=== PATIENT | female | born 1965 | race Caucasian/White ===

== ENCOUNTER → 2018-08-02 | Outpatient (CLI) | payer OTHER ==
[2016-05-08 20:42] VITALS: BP 133/83
[~2018-08-02] MED LIST: LORA-254 PO
--- NOTE | 2018-08-02 15:54 | RAD ---
Thyroid ultrasound, 08/02/2018: HISTORY: Abnormal TSH The right lobe of the gland measures 3.6 x 1.8 x 1.8 cm while the left lobe of the gland measures 4.1 x 1.2 x 1.4 cm. Both lobes of the gland are heterogeneous and demonstrate generalized increased vascularity. There is a smooth oval shaped very hypoechoic nodule in the posterior aspect of the lower pole the right lobe of the gland. It measures 9 x 7 x 4 mm. It is wider than tall. There is internal color flow. No calcification is seen. This nodule is considered to be moderately suspicious, TI-RADS 4. There is a questionable isoechoic nodule extending posteriorly from the lower pole the right lobe of the gland. This process measures approximately 9 mm in greatest diameter. No calcification is seen. This may represent an unusual extension of normal thyroid tissue. There is a rounded nodule in the lower pole of the left lobe of the gland. It demonstrates a smooth echogenic rim. It measures 14 x 10 x 11 mm. No definite color flow is seen internally. No definite calcification is seen. No other discrete thyroid nodule is seen. IMPRESSION: 1. Bilateral thyroid nodules with nonspecific sonographic characteristics as described above. Ultrasound surveillance is suggested. 2. Generalized increased thyroid vascularity raising possibility of thyroiditis. Electronically signed by: Cooper Dan MD (08/02/2018 3:51 PM) [facility]
== END | disposition home or self-care (01) ==
LOC: US 11:11
PROVIDERS: ATTEND Physician Assistant Medical
DX: E04.2 Nontoxic multinodular goiter (principal)
CPT/HCPCS: 76536

== ENCOUNTER → 2018-11-15 | Outpatient (CLI) | payer OTHER ==
[2016-05-08 20:42] VITALS: BP 133/83
[2018-11-16 02:08] LABS: THYROXINE 11.5 ug/dL (4.5-12.0)
== END | disposition home or self-care (01) ==
LOC: LAB 12:24
PROVIDERS: ATTEND Psychiatry & Neurology Neurology
DX: F03.90 Unspecified dementia, unspecified severity, without behavioral disturbance, psychotic disturbance, mood disturbance, and anxiety (principal)
CPT/HCPCS: 36415; 82306; 82607; 82746; 84436; 84443; 84480; 86592

== ENCOUNTER 2018-11-25 23:03 | Emergency (ER) | payer OTHER ==
[~2018-11-25] VITALS: Ht 165.1 cm; Wt 55.1 kg
[2018-11-25 23:10] VITALS: BP 155/94
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
[2018-11-25] MEDS ORDERED: LORazepam 1 MG TABLET PO ONE (23:45)
[2018-11-26 00:09] LABS: BASO # 0.1 x10^3/uL (0.0-0.2); BASO % 1 % (0-3); EOS # 0.1 x10^3/uL (0.0-0.7); EOS % 1 % (0-3); HEMATOCRIT 35.1 % (36.0-47.0); HEMOGLOBIN 11.5 g/dL (12.0-15.5); LYMPH # 1.3 x10^3/uL (1.0-4.8); LYMPH % 10 % (24-48); MEAN CORPUSCULAR HEMOGLOBIN 28 pg (25-35); MEAN CORPUSCULAR HGB CONC 33 g/dL (31-37); MEAN CORPUSCULAR VOLUME 84 fL (79-100); MONO % 8 % (0-9); NEUT # 10.3 x10^3uL (1.8-7.7); NEUT % 81 % (31-73); PLATELET COUNT 440 x10^3/uL (140-400); RED BLOOD COUNT 4.17 x10^6/uL (3.50-5.40); RED CELL DISTRIBUTION WIDTH 14.8 % (11.5-14.5); WHITE BLOOD COUNT 12.7 x10^3/uL (4.0-11.0)
[2018-11-26 00:19] LABS: BACTERIA,URINE FEW /HPF (0-FEW); BILIRUBIN,URINE NEG (NEG); CLARITY,URINE CLEAR; COLOR,URINE YELLOW; GLUCOSE,URINE NEG (NEG); NITRITE,URINE NEG (NEG); RBC,URINE 0 /HPF (0-2); SQUAMOUS EPITHELIAL CELL,UR MOD /LPF; UROBILINOGEN,URINE 8 mg/dL (0.2 mg/dL)
[2018-11-26 00:22] LABS: ALBUMIN/GLOBULIN RATIO 0.6 (1.0-1.7); CALCIUM 8.7 mg/dL (8.5-10.1); CREATININE 0.6 mg/dL (0.6-1.0); GFR 105.4; MAGNESIUM 1.6 mg/dL (1.8-2.4); TOTAL BILIRUBIN 0.6 mg/dL (0.2-1.0); TOTAL PROTEIN 7.7 g/dL (6.4-8.2)
[2018-11-26 00:22] LABS: BARBITURATES NEG (NEG); BENZODIAZEPINES NEG (NEG); CANNABINOIDS NEG (NEG); COCAINE NEG (NEG); METHADONE NEG (NEG); OPIATES NEG (NEG); PHENCYCLIDINE NEG (NEG)
[2018-11-26 00:24] LABS: POTASSIUM 2.8 mmol/L (3.5-5.1)
[2018-11-26 00:25] LABS: AMPHETAMINE/METHAMPHETAMINE NEG (NEG)
[2018-11-26] MEDS ORDERED: MAGNESIUM OXIDE 400 MG TABLET PO ONE (01:00)
[2018-11-26] MEDS ORDERED: POTASSIUM CHLORIDE 20 MEQ TABLET.ER. PO ONE (01:00)
[2018-11-26] MEDS ORDERED: POTA20TA84 PO (01:09)
[2018-11-26] MEDS ORDERED: MAGN400T3 PO (01:09)
--- NOTE | 2018-11-26 04:21 | RAD ---
EXAM: 3 views right hand DATE: 11/26/2018 1:22 AM INDICATION: Right hand and wrist pain, soft tissue swelling COMPARISON: No Prior FINDINGS/ IMPRESSION: 1. There is an intra-articular fracture at the ulnar aspect of the right distal radius extending to the radiocarpal joint and distal radioulnar joint. Neutral radial tilt. Mild flattening of the radial inclination angle. 2. Nondisplaced ulnar styloid avulsion fracture. 3. Decreased bone mineral density. 4. Diffuse soft tissue swelling. Electronically signed by: Lavon Martínez MD (11/26/2018 4:18 AM) [facility]
--- NOTE | 2018-11-26 04:21 | RAD ---
EXAM: AP and lateral views right forearm DATE: 11/26/2018 1:29 AM INDICATION: Fall, right wrist pain COMPARISON: No Prior FINDINGS/ IMPRESSION: Distal radial and ulnar fractures better described on dedicated wrist radiographs. No definite proximal forearm fracture. Electronically signed by: Lavon Martínez MD (11/26/2018 4:18 AM) [facility]
== END 2018-11-26 01:50 | disposition home or self-care (01) ==
LOC: ER 23:03
DX: S52.501A Unspecified fracture of the lower end of right radius, initial encounter for closed fracture (principal); S52.614A Nondisplaced fracture of right ulna styloid process, initial encounter for closed fracture; E87.6 Hypokalemia; E83.42 Hypomagnesemia; R41.82 Altered mental status, unspecified; F03.90 Unspecified dementia, unspecified severity, without behavioral disturbance, psychotic disturbance, mood disturbance, and anxiety; F17.210 Nicotine dependence, cigarettes, uncomplicated; W18.39XA Other fall on same level, initial encounter; Y93.89 Activity, other specified; Y92.89 Other specified places as the place of occurrence of the external cause; Y99.8 Other external cause status
CPT/HCPCS: 29125; 36415; 73090; 73130; 80053; 80307; 81001; 83735; 85025; 87086; 99285; G0480

== ENCOUNTER → 2018-12-01 | Outpatient (CLI) | payer OTHER ==
[2018-11-25 23:10] VITALS: BP 155/94
[~2018-12-01] MED LIST changes: +MAGN400T3 PO; +POTA20TA84 PO
--- NOTE | 2018-12-01 17:19 | RAD ---
TOES RIGHT History: Right third toe pain, necrosis.. There is irregularity at the base of the distal third phalanx. No notable joint space narrowing. There is mild adjacent bone irregularity. There is soft tissue swelling of the third toe. There is a defect at the distal third toe, may represent an ulcer. Alignment appears intact. Chronic ossicle adjacent to the distal fibula. IMPRESSION: 1. Soft tissue defect or ulcer at the distal third toe with third toe soft tissue swelling. 2. Irregularity at the base of the distal third phalanx could be due to bone destruction. If indicated, MRI could further evaluate for osteomyelitis. Electronically signed by: Scotty Reyes MD (12/01/2018 5:17 PM) [facility]
== END | disposition home or self-care (01) ==
LOC: DXRAD 10:35
PROVIDERS: ATTEND Physician Assistant
DX: I96 Gangrene, not elsewhere classified (principal); M79.674 Pain in right toe(s); R22.41 Localized swelling, mass and lump, right lower limb
CPT/HCPCS: 73660

== ENCOUNTER 2018-12-29 13:52 | Emergency (ER) | payer OTHER ==
[~2018-12-29] VITALS: Ht 165.1 cm; Wt 54.4 kg
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
[2018-12-29 17:09] VITALS: BP 156/86
== END 2018-12-29 17:09 | disposition home or self-care (01) ==
LOC: ER 13:52
DX: F03.90 Unspecified dementia, unspecified severity, without behavioral disturbance, psychotic disturbance, mood disturbance, and anxiety (principal); F41.9 Anxiety disorder, unspecified; F32.9 Major depressive disorder, single episode, unspecified; Z87.891 Personal history of nicotine dependence
CPT/HCPCS: 99283

== ENCOUNTER 2019-05-04 16:07 | Emergency (ER) | payer OTHER ==
[~2019-05-04] VITALS: Ht 165.1 cm; Wt 55.1 kg
[~2019-05-04 16:07] MED LIST changes: -MAGN400T3 PO; +MAGN400T5 PO
[2019-05-04 16:15] VITALS: BP 116/69
--- NOTE | 2019-05-04 16:56 | PHYS DOC ---
Past History Past Medical History: Anxiety, Dementia, Depression, Gallstones, Hypothyroid, Liver Disease, Other Past Surgical History: Cholecystectomy, Tonsillectomy Smoking: Cigarettes, Quit Greater Than 1 Year Alcohol Use: Sober Drug Use: None Adult General Chief Complaint Chief Complaint: UPPER EXTREMITY PAIN HPI HPI Patient is a 53-year-old female with advanced dementia, who is a resident of a [facility] who reportedly took a fall to [facility] today. She thinks she hit her head but she is uncertain. She complains of pain primarily in her right upper extremity, though she appears to have some tenderness along her wrist. She does move her right upper extremity normally. She denies any neck pain or back pain, headache, nausea, vomiting. Her mental status is normal according to her sister who is in the emergency department with her. Review of Systems Review of Systems To obtain review of systems, secondary to underlying dementia Allergies Allergies Allergies Coded Allergies Type Severity Reaction Last Updated Verified No Known Drug Allergies 05/08/16 No Physical Exam Physical Exam PHYSICAL EXAM: CONSTITUTIONAL: Well developed, well nourished HEAD: normocephalic, atraumatic EENT: PERRL, EOMI. Conjunctivae normal color, sclerae non-icteric; moist mucous membranes. NECK: Supple, non-tender; no meningismus. LUNGS: Lungs CTA, breathing even and unlabored. Normal air movement. HEART: Regular rate and rhythm, no murmur CHEST: No deformity; non-tender ABDOMEN: The abdomen is soft, and non-tender, no masses or bruits. EXTREM: There is some mild soft tissue swelling and tenderness to palpation along the right wrist, the remainder of the upper extremity is unremarkable to inspection but mildly diffusely tender without focal bony tenderness to palpation, crepitus or deformity, the remainder the extremities are atraumatic, with Normal ROM; no deformity, no calf tenderness. Normal pulses palpable in all extremities. There is no pedal edema. SKIN: No rash; no diaphoresis NEURO: Alert; normal speech impaired cognition consistent with underlying dementia; CN's grossly intact; strength grossly intact without focal deficit. BACK: No CVA TTP. EKG EKG [] Radiology/Procedures Radiology/Procedures PROCEDURE: FOREARM RIGHT PQRS Compliance statement: One or more of the following individualized dose reduction techniques were utilized for this examination: 1. Automated exposure control. 2. Adjustment of the mA and/or kV according to patient size. 3. Use of iterative reconstruction technique. Indication: Fall, pain. TECHNIQUE: CT head without IV contrast COMPARISON: 05/08/2016 FINDINGS: No pathologic extra-axial or intra-axial fluid collection. Mild diffuse atrophy with ex vacuo dilation of the ventricles. The basal cisterns are within normal limits. No acute intracranial bleed. No focal loss of mills-white differentiation. No large scalp hematoma. Visualized orbits are within normal limits. No acute calvarial fractures. Visualized paranasal sinuses and mastoid air cells are clear. IMPRESSION: No acute intracranial bleed or calvarial fracture. Mild diffuse atrophy. INDICATION: Fall and pain TECHNIQUE: 2 views of the right humerus and 2 views of the right forearm COMPARISON: None FINDINGS: Humerus: No acute fracture or dislocation. Forearm: Mild displaced fracture seen of the ulnar styloid process. Mild dorsal angulation of the distal radius seen with irregularity of the articular surface concerning for distal radial fracture. Mild wrist swelling noted. IMPRESSION: As above.[] Course & Med Decision Making Course & Med Decision Making Pertinent Imaging studies reviewed. (See chart for details) []Discussed test results with the patient's sister, the need for orthopedic follow-up and return precautions. The patient was placed in a sugar tong splint, PMS intact post placement. Dragon Disclaimer Dragon Disclaimer This electronic medical record was generated, in whole or in part, using a voice recognition dictation system. Departure Departure: Impression: Primary Impression: Fracture of distal radius and ulna Disposition: 01 HOME, SELF-CARE Condition: STABLE Referrals: BRENNAN ARMAS MD (PCP) Patient Instructions: Arm Sling Use-Brief, Forearm Fracture, Wrist Fracture Additional Instructions: Follow-up with orthopedics at [facility], call [phone] to schedule appointment. Tylenol as needed for pain. NIKKI BENNETT MD May 04, 2019 16:56
--- NOTE | 2019-05-04 17:18 | RAD ---
PQRS Compliance statement: One or more of the following individualized dose reduction techniques were utilized for this examination: 1. Automated exposure control. 2. Adjustment of the mA and/or kV according to patient size. 3. Use of iterative reconstruction technique. Indication: Fall, pain. TECHNIQUE: CT head without IV contrast COMPARISON: 05/08/2016 FINDINGS: No pathologic extra-axial or intra-axial fluid collection. Mild diffuse atrophy with ex vacuo dilation of the ventricles. The basal cisterns are within normal limits. No acute intracranial bleed. No focal loss of mills-white differentiation. No large scalp hematoma. Visualized orbits are within normal limits. No acute calvarial fractures. Visualized paranasal sinuses and mastoid air cells are clear. IMPRESSION: No acute intracranial bleed or calvarial fracture. Mild diffuse atrophy. INDICATION: Fall and pain TECHNIQUE: 2 views of the right humerus and 2 views of the right forearm COMPARISON: None FINDINGS: Humerus: No acute fracture or dislocation. Forearm: Mild displaced fracture seen of the ulnar styloid process. Mild dorsal angulation of the distal radius seen with irregularity of the articular surface concerning for distal radial fracture. Mild wrist swelling noted. IMPRESSION: As above. Electronically signed by: Jae Vital DO (05/04/2019 5:14 PM) [facility]
== END 2019-05-04 17:50 | disposition home or self-care (01) ==
LOC: ER 16:07
DX: S52.591A Other fractures of lower end of right radius, initial encounter for closed fracture (principal); S52.611A Displaced fracture of right ulna styloid process, initial encounter for closed fracture; E03.9 Hypothyroidism, unspecified; R51 Headache; Z87.891 Personal history of nicotine dependence; W18.39XA Other fall on same level, initial encounter; Y93.89 Activity, other specified; Y92.128 Other place in nursing home as the place of occurrence of the external cause; Y99.8 Other external cause status
CPT/HCPCS: 29125; 70450; 73060; 73090; 99284-25

== ENCOUNTER 2019-05-13 16:59 | Emergency (ER) | payer OTHER ==
[2019-05-13] MEDS: IV NORMAL SALINE 1,000ML 1,000 ML IV ONE (17:30)
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
[2019-05-13 17:56] VITALS: BP 155/82
[2019-05-13 18:07] LABS: CALCIUM 8.8 mg/dL (8.5-10.1); CREATININE 0.7 mg/dL (0.6-1.0); GFR 87.9; POTASSIUM 3.9 mmol/L (3.5-5.1)
[2019-05-13 18:08] LABS: BILIRUBIN,URINE NEG (NEG); CLARITY,URINE HAZY; COLOR,URINE YELLOW; GLUCOSE,URINE NEG (NEG)
[2019-05-13 18:09] LABS: AMORPHOUS SEDIMENT,UR PRESENT /HPF; BACTERIA,URINE FEW /HPF (0-FEW); NITRITE,URINE NEG (NEG); RBC,URINE OCC /HPF (0-2); SQUAMOUS EPITHELIAL CELL,UR MOD /LPF
[2019-05-13 18:13] LABS: ALBUMIN 3.5 g/dL (3.4-5.0); ALBUMIN/GLOBULIN RATIO 0.8 (1.0-1.7); C REACTIVE PROTEIN 1.7 mg/L (0-3.3); MAGNESIUM 1.8 mg/dL (1.8-2.4); TOTAL BILIRUBIN 0.3 mg/dL (0.2-1.0); TOTAL PROTEIN 8.1 g/dL (6.4-8.2)
[2019-05-13 19:44] LABS: BASO # 0.2 x10^3/uL (0.0-0.2); BASO % 2 % (0-3); EOS # 0.1 x10^3/uL (0.0-0.7); EOS % 1 % (0-3); HEMATOCRIT 32.4 % (36.0-47.0); HEMOGLOBIN 10.6 g/dL (12.0-15.5); LYMPH # 1.5 x10^3/uL (1.0-4.8); LYMPH % 14 % (24-48); MEAN CORPUSCULAR HEMOGLOBIN 26 pg (25-35); MEAN CORPUSCULAR HGB CONC 33 g/dL (31-37); MEAN CORPUSCULAR VOLUME 79 fL (79-100); MONO # 0.6 x10^3/uL (0.0-1.1); MONO % 6 % (0-9); NEUT # 8.4 x10^3uL (1.8-7.7); NEUT % 78 % (31-73); PLATELET COUNT 302 x10^3/uL (140-400); RED BLOOD COUNT 4.08 x10^6/uL (3.50-5.40); RED CELL DISTRIBUTION WIDTH 17.9 % (11.5-14.5); WHITE BLOOD COUNT 10.8 x10^3/uL (4.0-11.0)
[2019-05-13 20:39] LABS: BARBITURATES NEG (NEG); BENZODIAZEPINES NEG (NEG); CANNABINOIDS NEG (NEG); COCAINE NEG (NEG); METHADONE NEG (NEG); OPIATES NEG (NEG); PHENCYCLIDINE NEG (NEG)
[2019-05-13 20:44] LABS: AMPHETAMINE/METHAMPHETAMINE NEG (NEG)
--- NOTE | 2019-05-14 21:50 | EKG ---
[address] [address] Test Date: 2019-05-13 Test Time: 17:16:14 Pat Name: MERRY VARGHESE Department: Room: Gender: F [employer]: : 1965 Requested By: VIKI STAPLETON Order Number: [id number] Reading MD: Measurements Intervals [place] Rate: 115 P: 48 ME: 144 QRS: 68 QRSD: 80 T: 28 QT: 328 QTc: 456 Interpretive Statements SINUS TACHYCARDIA QRS(T) CONTOUR ABNORMALITY CONSIDER ANTEROLATERAL MYOCARDIAL DAMAGE POSSIBLY ABNORMAL ECG RI6.01 No previous ECG available for comparison
== END 2019-05-14 01:31 | disposition home or self-care (01) ==
LOC: ER 16:59
DX: F91.8 Other conduct disorders (principal); F41.9 Anxiety disorder, unspecified; F03.90 Unspecified dementia, unspecified severity, without behavioral disturbance, psychotic disturbance, mood disturbance, and anxiety; F32.9 Major depressive disorder, single episode, unspecified; E03.9 Hypothyroidism, unspecified; Z87.891 Personal history of nicotine dependence
CPT/HCPCS: 36415; 80053; 80307; 81001; 83735; 84443; 85025; 86140; 87086; 93005; 99285-25; J7030

== ENCOUNTER 2019-05-24 15:37 | Inpatient (IN) | payer OTHER ==
[~2019-05-24] VITALS: Ht 165.1 cm; Wt 62.1 kg
[2019-05-24] MEDS ORDERED: VANCOMYCIN 1 GM in IV NORMAL SALINE 250ML 250 ML IV ONE (16:00)
[2019-05-24 16:19] LABS: BASO # 0.1 x10^3/uL (0.0-0.2); BASO % 1 % (0-3); EOS # 0.2 x10^3/uL (0.0-0.7); EOS % 3 % (0-3); HEMATOCRIT 31.5 % (36.0-47.0); HEMOGLOBIN 10.3 g/dL (12.0-15.5); LYMPH % 20 % (24-48); MEAN CORPUSCULAR HEMOGLOBIN 26 pg (25-35); MEAN CORPUSCULAR HGB CONC 33 g/dL (31-37); MEAN CORPUSCULAR VOLUME 80 fL (79-100); MONO # 0.8 x10^3/uL (0.0-1.1); MONO % 8 % (0-9); NEUT # 6.9 x10^3uL (1.8-7.7); NEUT % 69 % (31-73); PLATELET COUNT 326 x10^3/uL (140-400); RED BLOOD COUNT 3.94 x10^6/uL (3.50-5.40); RED CELL DISTRIBUTION WIDTH 17.8 % (11.5-14.5); WHITE BLOOD COUNT 9.9 x10^3/uL (4.0-11.0)
[2019-05-24 16:29] LABS: CALCIUM 8.5 mg/dL (8.5-10.1); CREATININE 0.7 mg/dL (0.6-1.0); GFR 87.9; POTASSIUM 3.9 mmol/L (3.5-5.1)
[2019-05-24] MEDS ORDERED: IV NORMAL SALINE 250ML 250 ML ONE (17:58)
[2019-05-24] MEDS ORDERED: VANCOMYCIN 1 GM VIAL. ONE (17:58)
--- NOTE | 2019-05-24 18:11 | PHYS DOC ---
Past History Past Medical History: Anxiety, Bipolar, Dementia (FRANCISCO LEE Jr., DO) Past Surgical History: No Surgical History (FRANCISCO LEE Jr., DO) Smoking: Cigarettes, Quit Greater Than 1 Year Alcohol Use: None Drug Use: None (FRANCISCO LEE Jr., DO) Adult General Chief Complaint Chief Complaint: FOOT INJURY PAIN HPI HPI Patient is a 53-year-old female who presents with complaint of swelling, redness and drainage from her right second toe. Family indicates that home health just noticed the swelling today. Family states that home health had put a piece of tape over patient's toenail from the great toe which was eroding into the second toe. Patient does report some pain but states nothing seems to really worsen or improve it. Additional history is limited as patient is very poor historian.[] (FRANCISCO LEE Jr., DO) Review of Systems Review of Systems Constitutional: Denies fever or chills [] Respiratory: Denies cough or shortness of breath [] Cardiovascular: No additional information not addressed in HPI [] GI: Denies abdominal pain, nausea, vomiting or diarrhea [] Integument: Positive ulceration right second toe[] Neurologic: Denies headache, focal weakness or sensory changes [] All other systems were reviewed and found to be within normal limits, except as documented in this note. (FRANCISCO LEE Jr., DO) Current Medications Current Medications Current Medications Medications (Trade) Dose Ordered Sig/Bang Start Time Stop Time Status Last Admin Dose Admin Sodium Chloride 250 ml @ As Directed STK-MED ONCE 05/24/19 17:58 05/24/19 17:58 DC Vancomycin HCl (Vancomycin) 1 gm STK-MED ONCE 05/24/19 17:58 05/24/19 17:58 DC Vancomycin HCl 1 gm/Sodium Chloride 250 ml @ 250 mls/hr 1X ONCE 05/24/19 16:00 05/24/19 16:59 DC (FRANCISCO LEE Jr., DO) Allergies Allergies Allergies Coded Allergies Type Severity Reaction Last Updated Verified No Known Drug Allergies 05/08/16 No (FRANCISCO LEE Jr., DO) Physical Exam Physical Exam Constitutional: Well developed, well nourished, no acute distress, non-toxic appearance. [] HENT: Normocephalic, atraumatic, bilateral external ears normal, oropharynx moist, no oral exudates, nose normal. [] Eyes: PERRLA, EOMI, conjunctiva normal, no discharge. [] Neck: Normal range of motion, no tenderness, supple, no stridor. [] Cardiovascular: Regular rate and rhythm[] Lungs & Thorax: Bilateral breath sounds clear to auscultation [] Abdomen: Bowel sounds normal, soft, no tenderness. [] Skin: Warm, dry, no rash. [] Extremities: Examination of right second toe demonstrates moderate soft tissue swelling extending into the foot with redness, warmth and tenderness. There is purulent drainage noted from the wound site with foul odor. [] Neurologic: Awake and alert, no focal deficits noted. [] (FRANCISCO LEE Jr. DO) Current Patient Data Vital Signs Vital Signs Date Time Temp Pulse Resp B/P (MAP) Pulse Ox O2 Delivery O2 Flow Rate FiO2 05/24/19 15:53 98.6 101 18 98 Room Air Lab Results Laboratory Tests Test 05/24/19 16:05 White Blood Count 9.9 x10^3/uL (4.0-11.0) Red Blood Count 3.94 x10^6/uL (3.50-5.40) Hemoglobin 10.3 g/dL (12.0-15.5) L Hematocrit 31.5 % (36.0-47.0) L Mean Corpuscular Volume 80 fL (79-100) Mean Corpuscular Hemoglobin 26 pg (25-35) Mean Corpuscular Hemoglobin Concent 33 g/dL (31-37) Red Cell Distribution Width 17.8 % (11.5-14.5) H Platelet Count 326 x10^3/uL (140-400) Neutrophils (%) (Auto) 69 % (31-73) Lymphocytes (%) (Auto) 20 % (24-48) L Monocytes (%) (Auto) 8 % (0-9) Eosinophils (%) (Auto) 3 % (0-3) Basophils (%) (Auto) 1 % (0-3) Neutrophils # (Auto) 6.9 x10^3uL (1.8-7.7) Lymphocytes # (Auto) 2.0 x10^3/uL (1.0-4.8) Monocytes # (Auto) 0.8 x10^3/uL (0.0-1.1) Eosinophils # (Auto) 0.2 x10^3/uL (0.0-0.7) Basophils # (Auto) 0.1 x10^3/uL (0.0-0.2) Sodium Level 140 mmol/L (136-145) Potassium Level 3.9 mmol/L (3.5-5.1) Chloride Level 102 mmol/L (98-107) Carbon Dioxide Level 30 mmol/L (21-32) Anion Gap 8 (6-14) Blood Urea Nitrogen 12 mg/dL (7-20) Creatinine 0.7 mg/dL (0.6-1.0) Estimated GFR (Cockcroft-Gault) 87.9 Glucose Level 92 mg/dL (70-99) Calcium Level 8.5 mg/dL (8.5-10.1) (FRANCISCO LEE Jr., DO) EKG EKG [] (FRANCISCO LEE Jr., DO) Radiology/Procedures Radiology/Procedures [] Impressions: PROCEDURE: TOES RIGHT Three-view right foot HISTORY: Right second toe infection possible osteomyelitis AP lateral oblique views right foot obtained The visualized osseous structures appear intact. There is no lytic destructive changes appreciated. There is mild soft tissue edema. There is deformity of the tarsal bones seen on the lateral view which could be due to old injury. IMPRESSION: No acute bony abnormality identified. Electronically signed by: John Crawford III, MD (05/24/2019 8:37 PM) [facility] (FRANCISCO LEE Jr., DO) Course & Med Decision Making Course & Med Decision Making Pertinent Labs and Imaging studies reviewed. (See chart for details) [] (FRANCISCO LEE Jr., DO) Course & Med Decision Making See Dr. Lee chart for details. (LOIDA RIVERA MD) Dragon Disclaimer Dragon Disclaimer This electronic medical record was generated, in whole or in part, using a voice recognition dictation system. (FRANCISCO LEE Jr., DO) Departure Departure: Impression: Primary Impression: Cellulitis of right foot Disposition: ADMITTED INPATIENT Admitting Physician: Kacie Nation (FRANCISCO LEE Jr., DO) Condition: IMPROVED Referrals: BRENNAN ARMAS MD (PCP) Scripts Cephalexin (KEFLEX) 500 Mg Capsule 1 CAP PO TID for cellulitis for 10 Days, #30 CAP 0 Refills Prov: KACIE NATION MD 05/25/19 Dragon Disclaimer This chart was dictated in whole or in part using Voice Recognition software in a busy, high-work load, and often noisy Emergency Department environment. It may contain unintended and wholly unrecognized errors or omissions. (LOIDA RIVERA MD) Dragon Disclaimer This chart was dictated in whole or in part using Voice Recognition software in a busy, high-work load, and often noisy Emergency Department environment. It may contain unintended and wholly unrecognized errors or omissions. (FRANCISCO LEE Jr. DO) FRANCISCO LEE Jr. DO May 24, 2019 18:11 LOIDA RIVERA MD May 25, 2019 00:14
[2019-05-24] MEDS ORDERED: PIPERACILLIN/TAZOBACTAM 3.375 GM in IV NORMAL SALINE 50ML 50 ML IV ONE (18:15)
[2019-05-24] MEDS ORDERED: IV NORMAL SALINE 50ML 50 ML ONE (18:51)
[2019-05-24] MEDS ORDERED: PIPERACILLIN/TAZOBACTAM 3.375 GM VIAL IV ONE (18:51)
--- NOTE | 2019-05-24 20:40 | RAD ---
Three-view right foot HISTORY: Right second toe infection possible osteomyelitis AP lateral oblique views right foot obtained The visualized osseous structures appear intact. There is no lytic destructive changes appreciated. There is mild soft tissue edema. There is deformity of the tarsal bones seen on the lateral view which could be due to old injury. IMPRESSION: No acute bony abnormality identified. Electronically signed by: John Crawford III, MD (05/24/2019 8:37 PM) [facility]
[2019-05-25 01:48] VITALS: BP 118/72
[2019-05-25] MEDS ORDERED: ACET325T21 PO (04:48)
[2019-05-25] MEDS ORDERED: FLUO10CA13 PO (04:48)
[2019-05-25] MEDS ORDERED: OLAN10TA3 PO (04:48)
[2019-05-25] MEDS ORDERED: DIVA500T2 PO (04:48)
[2019-05-25] MEDS ORDERED: OMEP40CA45 PO (04:48)
[2019-05-25 05:58] VITALS: BP 104/69
[2019-05-25 07:17] LABS: BASO % 1 % (0-3); EOS # 0.3 x10^3/uL (0.0-0.7); EOS % 4 % (0-3); HEMATOCRIT 30.8 % (36.0-47.0); HEMOGLOBIN 10.2 g/dL (12.0-15.5); LYMPH # 1.7 x10^3/uL (1.0-4.8); LYMPH % 23 % (24-48); MEAN CORPUSCULAR HEMOGLOBIN 26 pg (25-35); MEAN CORPUSCULAR HGB CONC 33 g/dL (31-37); MEAN CORPUSCULAR VOLUME 79 fL (79-100); MONO # 0.8 x10^3/uL (0.0-1.1); MONO % 11 % (0-9); NEUT # 4.6 x10^3uL (1.8-7.7); NEUT % 62 % (31-73); PLATELET COUNT 318 x10^3/uL (140-400); RED BLOOD COUNT 3.88 x10^6/uL (3.50-5.40); RED CELL DISTRIBUTION WIDTH 17.8 % (11.5-14.5); WHITE BLOOD COUNT 7.5 x10^3/uL (4.0-11.0)
[2019-05-25 07:32] LABS: CALCIUM 8.5 mg/dL (8.5-10.1); CREATININE 0.7 mg/dL (0.6-1.0); GFR 87.9; POTASSIUM 3.7 mmol/L (3.5-5.1)
[2019-05-25] MEDS ORDERED: ACETAMINOPHEN 325 MG TABLET PO PRN (08:00)
[2019-05-25] MEDS ORDERED: DIVALPROEX SODIUM 250 MG TABLET.DR. PO SCH (09:00)
[2019-05-25] MEDS ORDERED: FLUoxetine HCL 10 MG CAPSULE PO SCH (09:00)
[2019-05-25] MEDS ORDERED: OLANZapine IM 10 MG VIAL. IM ONE (09:15)
--- NOTE | 2019-05-25 10:37 | NUR ---
Pt wandering at Nurse's Station asking multiple about being discharged, very confused. Gave prn zyprexa per 's orders, pt now resting, will continue to assess and monitor. Have educated pt multiple times about coming to discharge her.
[2019-05-25] MEDS ORDERED: OLANZapine 10 MG TABLET PO SCH (12:00)
[2019-05-25 15:40] VITALS: BP 102/66
[2019-05-25] MEDS ORDERED: CEPH-264 PO (15:44)
--- NOTE | 2019-05-25 16:47 | NUR ---
Discharge Note: MERRY VARGHESE [address] Discharge instructions and discharge home medications reviewed with Patient and a copy given. All questions have been answered and understanding verbalized. The following instructions and handouts were given: Take medications as prescribed. Discontinued lines and drains:Discontinued peripheral IV, pressure dressing applied, catheter tip intact. No apparant complications Patient discharged to home.
--- NOTE | 2019-05-25 17:43 | SSS ---
ADMIT DATE: 05/25/2019 HISTORY OF PRESENT ILLNESS: The patient is a 53-year-old female patient, a resident at [facility], who was brought through the Emergency Room with a foot injury and pain. She was evaluated in the Emergency Room and was extensively investigated. Her lab work showed that she has no leukocytosis. Her chemistry was within normal limits. Her x-ray of the right second toe showed that the visualized osseous structures appeared intact. There is no lytic destructive change appreciated. There is mild soft tissue edema. There is deformity of the tarsal bones seen on the lateral view, which could be due to old injury. She was started on IV vancomycin and Zosyn. Unfortunately, the patient has been extremely restless, agitated, wandering, and insisting she wants to go home. She does not keep dressing on her foot, and therefore, a decision was made to discharge her back to put a trial of oral antibiotic. PAST MEDICAL HISTORY: Significant for schizophrenia, unspecified. She has bipolar disorder as well as unspecified dementia without behavioral disturbances. ALLERGIES: She has no known drug allergies. MEDICATIONS: She is currently on Ativan 2 mg by mouth 3 times a day in the morning, dinner, and at bedtime, Depakote 250 mg 1 tablet twice a day, omeprazole 40 mg daily, Prozac 10 mg daily, Zyprexa Zydis 10 mg to take 1 tablet for psychosis. FAMILY HISTORY: Noncontributory. SOCIAL HISTORY: She is a resident at [facility]. She is an ex-smoker, quit more than a year ago. She does not drink alcohol or use any recreational drugs. PHYSICAL EXAMINATION: GENERAL: When I examined her today, she looked well and was clearly in no apparent respiratory distress. No pallor, jaundice, cyanosis, or thyromegaly. No jugular venous distention. No limb edema. VITAL SIGNS: Her heart rate was 98, blood pressure was 104/69, temperature was 98.4, respiratory rate 20, and oxygen saturation was 94%. HEAD, EYES, EARS, NOSE AND THROAT: Normocephalic, atraumatic. NECK: Supple. HEART: Showed normal first and second heart sounds. No gallop or murmur. CHEST: Clear to auscultation. No crepitation or rhonchi. ABDOMEN: Distended, soft, nontender. No guarding or rigidity. No organomegaly. All hernial orifice intact. Bowel sounds normal. NEUROLOGIC: She has obviously schizophrenia and dementia, but without any obvious lateralizing sign. All her cranial nerves intact. EXTREMITIES: She moves extremities without difficulty. She ambulates without assistance or assistive devices. TREATMENT PLAN: As the patient has been extremely agitated, restless, wandering, does not leave any dressing in her foot, and therefore, she was switched to oral Keflex 500 mg 3 times a day for 10 days. As long as she is here, she is afebrile, hemodynamically stable. Her white cell count is normal. X-ray showed no evidence of osteomyelitis and therefore, a trial of oral antibiotic would be warranted. If obviously her condition worsened, she might have to be treated more aggressively with IV antibiotic. However, that can also be done at the long-term in her own environment. FINAL DISCHARGE DIAGNOSES: 1. Right foot cellulitis. 2. Schizophrenia. JOSE MANUEL CASIANO MD DR: BETH/sekou JOB#: [id number] / [id number]
[2019-05-26] MEDS ORDERED: PANTOPRAZOLE 40 MG TABLET. PO SCH (09:00)
== END 2019-05-25 16:49 | disposition home or self-care (01) | DRG 603 ==
LOC: ER 15:37 → 1 SOUTH 18:10 → UNDOADMIN 18:10
PROVIDERS: ADMIT Internal Medicine; ATTEND Internal Medicine
DX: L03.115 Cellulitis of right lower limb (principal); F03.90 Unspecified dementia, unspecified severity, without behavioral disturbance, psychotic disturbance, mood disturbance, and anxiety; F20.9 Schizophrenia, unspecified; F31.9 Bipolar disorder, unspecified; Z87.891 Personal history of nicotine dependence; F41.9 Anxiety disorder, unspecified; Z79.899 Other long term (current) drug therapy
CPT/HCPCS: 36415; 73660; 80048; 85025; 87040; 87070; 96365; 96366; 96368; J2543; J3370; J3490; J7050; 99285-25

== ENCOUNTER 2020-06-01 04:51 | Inpatient (IN) | payer OTHER ==
[~2020-06-01] VITALS: Ht 165.1 cm; Wt 97.7 kg
[~2020-06-01 04:51] MED LIST changes: +ACET325T21 PO; +CEPH-264 PO; +DIVA500T2 PO; +FLUO10CA13 PO; +OLAN10TA3 PO; +OMEP40CA45 PO
[2020-06-01] MEDS ORDERED: QUET300T67 PO (05:05)
[2020-06-01] MEDS ORDERED: OLAN5TAB9 PO (05:05)
[2020-06-01] MEDS ORDERED: LORA-254 PO (05:05)
[2020-06-01] MEDS ORDERED: FLUO20CA20 PO (05:05)
[2020-06-01] MEDS ORDERED: MAGN24003 PO (05:05)
[2020-06-01] MEDS ORDERED: NA P133E2 RC (05:05)
[2020-06-01] MEDS ORDERED: IPRA3AMP29 NEB (05:05)
[2020-06-01] MEDS ORDERED: QUET50TA80 PO (05:05)
[2020-06-01] MEDS ORDERED: GUAI-447 PO (05:05)
[2020-06-01] MEDS ORDERED: BISA10SU4 RC (05:05)
[2020-06-01] MEDS ORDERED: PALI3TAB2 PO (05:05)
[2020-06-01] MEDS ORDERED: OMEP20CA16 PO (05:05)
[2020-06-01] MEDS ORDERED: DIVA-51 PO (05:05)
[2020-06-01 11:10] VITALS: BP 133/94
--- NOTE | 2020-06-01 11:15 | NUR ---
Admission Note with Justification for Admission to [facility] Patient admitted to [facility] for protective oversight for emergency stabilization of acute psychiatric crisis. Pt admitted from: SNF Mode of arrival: Secure Transport Accompanied By: [facility] Staff Precipitating behaviors that initiated intake and admission: Pt was reported to be threatening staff members at her current facility and attempting to elope from facility. Reports about family members being injured. Reportedly calling 911 and having anxiety/panic attacks. Description of failure of out patient attempts at stabilization in previous setting list behavior and medication trials: Redirection, reassurance, distraction, medication changes were not effective in controlling behaviors. Behaviors and assessment findings upon admission: Pt was tearful upon admission, she was confused and thought she was brought to another fci. She asked [facility] staff when she could go back to her current facility. When asked, she confirmed HI in particular, wanting to harm Chanelle. She did not answer a lot of questions and appeared apprehensive of staff. She has Rt hand edema, which pt states was due to hitting a mirror prior to admission to [facility]. Skin assessment unremarkable. Pt ambulates with a walker, however at times she will attempt to ambulate without one. She reports no SOB or cough, COVID test administered upon admission. Her last COVID test (05/28/20) was negative. She does have hx of resolved COVID infection. Plan: Admit for protective oversight for adjustment and stabilization of medications, behaviors and mood. Intense treatment regimen including groups, medication adjustments, therapy, consistent regimen for ADL's, self care, and sleep hygiene. Daily monitoring by Inpatient staff, Psychiatry, and Medical Physician.
[2020-06-01] MEDS ORDERED: METHYL SALICYLATE/MENTHOL TOPICAL OINTMENT 57GM TUBE. TP PRN (12:15)
[2020-06-01] MEDS ORDERED: MAG HYDROX/AL HYDROX/SIMETH 30 ML ORAL.SUSP PO PRN (12:15)
[2020-06-01] MEDS ORDERED: MAGNESIUM HYDROXIDE 2,400 MG/30 ML ORAL.SUSP. PO PRN ×2 (12:15→13:15)
[2020-06-01] MEDS ORDERED: ACETAMINOPHEN 325 MG TABLET PO PRN (12:15)
[2020-06-01] MEDS ORDERED: NON FORMULARY ITEM (Magnesium Hydroxide (Milk Of Magnesia) 2,400 MG) PO PRN (12:45)
[2020-06-01] MEDS ORDERED: BISACODYL 10 MG SUPP.RECT RC PRN (12:45)
[2020-06-01] MEDS ORDERED: IPRATRPIUM/ALBUTEROL 0.5/2.5MG 3 ML NEBU. NEB PRN (12:45)
[2020-06-01] MEDS ORDERED: SODIUM PHOSPHATES 19/7GM 133 ML ENEMA. RC PRN (12:45)
[2020-06-01 12:51] LABS: BASO % 0 % (0-3); EOS # 0.2 x10^3/uL (0.0-0.7); EOS % 3 % (0-3); HEMATOCRIT 33.8 % (36.0-47.0); HEMOGLOBIN 10.9 g/dL (12.0-15.5); LYMPH % 27 % (24-48); MEAN CORPUSCULAR HEMOGLOBIN 25 pg (25-35); MEAN CORPUSCULAR HGB CONC 32 g/dL (31-37); MEAN CORPUSCULAR VOLUME 78 fL (79-100); MONO # 0.8 x10^3/uL (0.0-1.1); MONO % 10 % (0-9); NEUT # 4.5 x10^3uL (1.8-7.7); NEUT % 60 % (31-73); PLATELET COUNT 299 x10^3/uL (140-400); RED BLOOD COUNT 4.33 x10^6/uL (3.50-5.40); RED CELL DISTRIBUTION WIDTH 19.5 % (11.5-14.5); WHITE BLOOD COUNT 7.6 x10^3/uL (4.0-11.0)
[2020-06-01] MEDS ORDERED: guaiFENesin DM 200MG/20MG 10 ML SYRUP PO PRN (13:00)
[2020-06-01 13:10] LABS: ALBUMIN 3.2 g/dL (3.4-5.0); ALBUMIN/GLOBULIN RATIO 0.6 (1.0-1.7); ALK PHOS 113 U/L (46-116); ALT (SGPT) 41 U/L (14-59); ANION GAP 11 (6-14); AST (SGOT) 40 U/L (15-37); BLOOD UREA NITROGEN 16 mg/dL (7-20); BUN/CREATININE RATIO 18 (6-20); CALCIUM 8.4 mg/dL (8.5-10.1); CARBON DIOXIDE 27 mmol/L (21-32); CHLORIDE 101 mmol/L (98-107); CREATININE 0.9 mg/dL (0.6-1.0); GFR 65.5; GLUCOSE 144 mg/dL (70-99); MAGNESIUM 1.9 mg/dL (1.8-2.4); SODIUM 139 mmol/L (136-145); TOTAL BILIRUBIN 0.1 mg/dL (0.2-1.0); TOTAL PROTEIN 8.5 g/dL (6.4-8.2)
[2020-06-01 13:15] LABS: VAL ACID 39 mcg/mL (50-100)
--- NOTE | 2020-06-01 13:17 | NUR ---
Carolyn has [employer] insurance, effective 05/25/2020. Call placed to [employer] this afternoon to inform of admission to [facility]. Spoke to Cinthia at [phone] ext [phone] who provided pending authorization number of [id number]. Initial clinical report (face sheet, H&P, and medication list) will need to be faxed to [phone] on 06/04/20.
[2020-06-01] MEDS ORDERED: DIVALPROEX SODIUM 250 MG TABLET.DR. PO SCH (14:00)
[2020-06-01] MEDS: LORazepam 1 MG TABLET PO SCH ×2 (14:55→21:27)
[2020-06-01 15:00] VITALS: BP 138/94
--- NOTE | 2020-06-01 21:01 | PDOC ---
Exam Note: Cristiano Note: Please also refer to the separate dictated note~for this date of service dictated separately.~Patient seen individually. Discussed the patient with Nursing staff reviewed the chart.~Reviewed interim history and current functioning. Reviewed vital signs,~Labs/ Radiology~and current medications noted below. Continue current treatment with the changes noted in the dictated addendum note Assessment: Vital Signs/I&O: Vital Signs Date Time Temp Pulse Resp B/P (MAP) Pulse Ox O2 Delivery O2 Flow Rate FiO2 06/01/20 15:00 97.2 96 18 138/94 (109) 97 Room Air Labs: Laboratory Tests Test 06/01/20 12:33 White Blood Count 7.6 x10^3/uL (4.0-11.0) Red Blood Count 4.33 x10^6/uL (3.50-5.40) Hemoglobin 10.9 g/dL (12.0-15.5) L Hematocrit 33.8 % (36.0-47.0) L Mean Corpuscular Volume 78 fL (79-100) L Mean Corpuscular Hemoglobin 25 pg (25-35) Mean Corpuscular Hemoglobin Concent 32 g/dL (31-37) Red Cell Distribution Width 19.5 % (11.5-14.5) H Platelet Count 299 x10^3/uL (140-400) Neutrophils (%) (Auto) 60 % (31-73) Lymphocytes (%) (Auto) 27 % (24-48) Monocytes (%) (Auto) 10 % (0-9) H Eosinophils (%) (Auto) 3 % (0-3) Basophils (%) (Auto) 0 % (0-3) Neutrophils # (Auto) 4.5 x10^3uL (1.8-7.7) Lymphocytes # (Auto) 2.0 x10^3/uL (1.0-4.8) Monocytes # (Auto) 0.8 x10^3/uL (0.0-1.1) Eosinophils # (Auto) 0.2 x10^3/uL (0.0-0.7) Basophils # (Auto) 0.0 x10^3/uL (0.0-0.2) D-Dimer (Johanny) 0.67 mg/L (0.00-0.50) H Sodium Level 139 mmol/L (136-145) Potassium Level 4.0 mmol/L (3.5-5.1) Chloride Level 101 mmol/L (98-107) Carbon Dioxide Level 27 mmol/L (21-32) Anion Gap 11 (6-14) Blood Urea Nitrogen 16 mg/dL (7-20) Creatinine 0.9 mg/dL (0.6-1.0) Estimated GFR (Cockcroft-Gault) 65.5 BUN/Creatinine Ratio 18 (6-20) Glucose Level 144 mg/dL (70-99) H Calcium Level 8.4 mg/dL (8.5-10.1) L Magnesium Level 1.9 mg/dL (1.8-2.4) Total Bilirubin 0.1 mg/dL (0.2-1.0) L Aspartate Amino Transferase (AST) 40 U/L (15-37) H Alanine Aminotransferase (ALT) 41 U/L (14-59) Alkaline Phosphatase 113 U/L (46-116) Total Protein 8.5 g/dL (6.4-8.2) H Albumin 3.2 g/dL (3.4-5.0) L Albumin/Globulin Ratio 0.6 (1.0-1.7) L Valproic Acid Level 39 mcg/mL (50-100) L Valproic Acid Last Dose Date 06/02/20 Valproic Acid Last Dose Time 0900 Current Medications: Meds: Current Medications Medications (Trade) Dose Ordered Sig/Bang Route PRN Reason Start Time Stop Time Status Last Admin Dose Admin Divalproex Sodium (Depakote) 250 mg TID PO 06/01/20 14:00 06/01/20 19:18 DC 06/01/20 14:55 Lorazepam (Ativan) 2 mg TID PO 06/01/20 14:00 06/01/20 14:55 I have reviewed the current psychotropics carefully including drug interactions. Risk benefit ratio favors no change other than as noted in my dictated progress note. Diagnosis: Problems: (1) Schizoaffective disorder, bipolar type (2) Mental status change CRISELDA GARCIA MD Jun 01, 2020 21:01
[2020-06-01] MEDS: risperiDONE 1 MG TABLET. PO SCH (21:27)
[2020-06-01] MEDS: QUEtiapine 100 MG TABLET. PO SCH (21:27)
[2020-06-01] MEDS: DIVALPROEX ER 500 MG TAB.ER.24H PO SCH (21:27)
--- NOTE | 2020-06-01 21:54 | HP ---
ADMIT DATE: 06/01/2020 PSYCHIATRIC ADMISSION HISTORY/EVALUATION Telehealth rounds/evaluation. IDENTIFYING DATA: The patient is a 54-year-old female referred to us from [place], [place], referred by Dr. Lane, her primary care physician on account of worsening psychotic symptoms within the context of her diagnosis of schizoaffective disorder, bipolar type. She is threatening staff. She is trying to leave the facility. She has delusional thinking her nieces and nephews are being hurt or left in a house. She is calling 911 to report danger. She is having anxiety, panic attacks, yelling out, sleep and appetite changes. She had failed outpatient psychiatric interventions, referred for inpatient psychiatric stabilization. CHIEF COMPLAINT: "Yes, I've been upset." HISTORY OF PRESENT ILLNESS: The patient has a long history of schizoaffective disorder, bipolar type versus schizophrenia versus bipolar disorder and mild cognitive impairment. She has been residing at [facility] for some time, recently getting more psychotic, paranoid, agitated with neurovegetative symptoms, sleep and appetite changes, delusions and aggression. No active suicidal or homicidal ideation. PAST PSYCHIATRIC HISTORY: As above. MEDICAL HISTORY: GERD, seizure disorder, history of goiter, thyrotoxicosis, past history of alcohol and drug abuse. She stopped drinking in 2012. History of arthritis, hepatitis, pancreatitis. CODE STATUS: Full code. ALLERGIES: MORPHINE. DIET: Regular. Takes medications whole. Ambulates with walker. FAMILY HISTORY: Noncontributory. SOCIAL HISTORY: Positive for alcohol, drug abuse as noted above. She states she used to work at [employer] [facility] [facility] [employer] before retiring. She has no children. REVIEW OF SYSTEMS: Positive for impaired ambulation. No CV, , pulmonary, eye, ENT system symptoms on review. MENTAL STATUS EXAMINATION: Oriented to herself and situation. Speech has some latency, coherent. Abstraction fair, computation impaired, language function intact, attention span short. Mood and affect withdrawn, anxious, labile, distractable. LABORATORY DATA: Reviewed. IMPRESSION: Schizoaffective disorder, bipolar type, mixed with psychotic features; anxiety disorder, unspecified; impulse control disorder, unspecified; past history of alcohol and drug abuse. Rest diagnoses as above. PLAN: Admit to Geropsychiatry Unit at [facility]. I will see the patient daily individually from a psychiatric standpoint. Medical followup with Dr. Nation/Dr. Martinez. Continue current psychotropics. Valproic acid level today is 39 on Depakote 250 mg t.i.d. We will increase to Depakote ER 1 gram p.o. at bedtime. Check CBC, CMP, valproic acid level, ammonia level in 3 days. Adjust further to reach therapeutic level. Continue Prozac 20 mg a day, Ativan 2 mg t.i.d., but we will gradually taper this. She is also on Zyprexa 5 mg daily, Invega 3 mg daily, Seroquel ER 50 mg a.m. and 300 mg at bedtime. She is on multiple atypical antipsychotics and these need to be simplified preferably down to 1 atypical. May need to increase the Invega or change to Risperdal. We will make these decisions post-stabilization on the Depakote. ESTIMATED LENGTH OF STAY: 10-12 days. DISPOSITION: Plans back to long-term when stable. CRISELDA GARCIA MD DR: RUSSELL/sekou JOB#: [id number] / [id number]
[2020-06-01 23:29] LABS: BILIRUBIN,URINE NEG (NEG); CLARITY,URINE HAZY; COLOR,URINE YELLOW; GLUCOSE,URINE NEG (NEG); NITRITE,URINE POS (NEG); UROBILINOGEN,URINE 0.2 mg/dL (0.2 mg/dL)
[2020-06-01 23:30] LABS: BACTERIA,URINE MANY /HPF (0-FEW); SQUAMOUS EPITHELIAL CELL,UR FEW /LPF
--- NOTE | 2020-06-02 02:44 | NUR ---
The patient was calm, drowsy and cooperative this shift. The patient was sleeping in her room until medication pass. This nurse awoke the patient and was able to ask her assessment questions. The patient was alert to name only. The patient took her medication whole. The patient talked about her numerous tattoos and the meanings of them.
[2020-06-02 06:22] VITALS: BP 133/85
[2020-06-02] MEDS: FLUoxetine HCL 20 MG CAPSULE PO SCH (08:17)
[2020-06-02] MEDS: QUEtiapine 50 MG TABLET. PO SCH (08:18)
[2020-06-02] MEDS: LORazepam 1 MG TABLET PO SCH ×3 (08:18→20:35)
[2020-06-02] MEDS: OLANZapine 5 MG TABLET PO SCH (08:18)
[2020-06-02] MEDS: risperiDONE 1 MG TABLET. PO SCH ×2 (08:18→20:33)
[2020-06-02] MEDS: PANTOPRAZOLE 40 MG TABLET. PO SCH (08:19)
[2020-06-02 08:32] LABS: THYROXINE 5.4 ug/dL (4.5-12.0)
[2020-06-02 13:15] LABS: THYROID STIM HORMONE (TSH) 3.218 uIU/mL (0.358-3.740)
--- NOTE | 2020-06-02 14:12 | NUR ---
Pt has remained calm and appropriate during shift. Often seen in front of the nurse station with other pts. Aside from being around other pts she appears withdrawn and does not engage with others freely. She denies SI or HI, but states she would like to "slap" the members of her family who allowed her to be placed in [facility]. When asked if she has talked to her family yet to express her feelings she says she has not. Encouragement and support given. She is complaint with medications. She denies pain at this time. She complains of a wet non productive cough. Will continue to monitor and report to next shift.
--- NOTE | 2020-06-02 15:57 | NUR ---
When attempting to administer afternoon dose of Lorazepam 2 mg, pt stated that she didn't want to take the medication "because it makes me tired. I don't like it. I want to take it at night." Dr Oseguera paged by this nurse and he gave the following orders: 1. d/c current Lorazepam order. 2. Begin Lorazepam taper as follows: 2 mg PO in the morning and 3 mg HS for 3 days, 2 mg in the morning and 2 mg HS for 3 days, 1 mg in the morning and 2 mg HS for [address] will reevaluate effectiveness. 3. Consult with Dr Gray in neurology for consult d/t pt having a seizure disorder and being placed on Lorazepam taper Orders read back and verified. This nurse paged and consulted with Dr Gray. No orders or recommendations given
[2020-06-02 16:25] VITALS: BP 144/87
--- NOTE | 2020-06-02 18:03 | NUR ---
Pt has become increasingly distressed and delusional. She has been asking staff if they have seen a little boy named Lori. When asked, she states he is her great nephew. She is hyperfixated on his whereabouts and safety, and is convinced he is lost or in danger in some capacity. Attempts at redirection are unsuccessful. She has been hovering around the nurse station and tapping on the windows insisting on talking to various family members on the phone. She becomes tearful and almost hysterical in her insistence on confirming the safety of Tiburcio. Dr Oseguera notified and order was given for Zyprexa 2.5 mg PO Q2HPRN for agitation/delusions. Dose has been administered and pt tolerated it well.
[2020-06-02] MEDS: QUEtiapine 100 MG TABLET. PO SCH (20:33)
[2020-06-02] MEDS: DIVALPROEX ER 500 MG TAB.ER.24H PO SCH (20:34)
--- NOTE | 2020-06-02 20:59 | PDOC ---
Exam Note: Cristiano Note: Please also refer to the separate dictated note~for this date of service dictated separately.~Patient seen individually. Discussed the patient with Nursing staff reviewed the chart.~Reviewed interim history and current functioning. Reviewed vital signs,~Labs/ Radiology~and current medications noted below. Continue current treatment with the changes noted in the dictated addendum note Assessment: Vital Signs/I&O: Vital Signs Date Time Temp Pulse Resp B/P (MAP) Pulse Ox O2 Delivery O2 Flow Rate FiO2 06/02/20 16:25 97.2 104 20 144/87 (106) 97 06/01/20 15:00 Room Air I & O 06/01/20 06/01/20 06/02/20 15:00 23:00 07:00 Intake Total 720 ml Balance 720 ml Labs: Laboratory Tests Test 06/01/20 22:20 Urine Collection Type Unknown Urine Color Yellow Urine Clarity Hazy Urine pH 6.0 Urine Specific [place] 1.020 Urine Protein Neg (NEG-TRACE) Urine Glucose (UA) Neg mg/dL (NEG) Urine Ketones (Stick) Neg mg/dL (NEG) Urine Blood Trace (NEG) Urine Nitrite Pos (NEG) Urine Bilirubin Neg (NEG) Urine Urobilinogen Dipstick 0.2 mg/dL (0.2 mg/dL) Urine Leukocyte Esterase Trace (NEG) Urine RBC 1-2 /HPF (0-2) Urine WBC 11-20 /HPF (0-4) Urine Squamous Epithelial Cells Few /LPF Urine Bacteria Many /HPF (0-FEW) Current Medications: Meds: Current Medications Medications (Trade) Dose Ordered Sig/Bang Route PRN Reason Start Time Stop Time Status Last Admin Dose Admin Fluoxetine HCl (PROzac) 20 mg DAILY PO 06/02/20 09:00 06/02/20 08:17 Olanzapine (ZyPREXA) 5 mg DAILY PO 06/02/20 09:00 06/02/20 08:18 Pantoprazole Sodium (Protonix) 40 mg DAILYAC PO 06/02/20 07:30 06/02/20 08:19 Risperidone (RisperDAL) 1 mg BID PO 06/01/20 21:00 06/02/20 20:33 Quetiapine Fumarate (SEROquel) 50 mg DAILY PO 06/02/20 09:00 06/02/20 08:18 Quetiapine Fumarate (SEROquel) 300 mg HS PO 06/01/20 21:00 06/02/20 20:33 Divalproex Sodium (Depakote Er) 1,000 mg QHS PO 06/01/20 21:00 06/02/20 20:34 Lorazepam (Ativan) 3 mg 2100 PO 06/02/20 21:00 06/04/20 23:59 06/02/20 20:35 Olanzapine (ZyPREXA ZYDIS) 2.5 mg PRN Q2HRS PRN PO PSYCHOSIS 06/02/20 16:57 06/02/20 17:14 I have reviewed the current psychotropics carefully including drug interactions. Risk benefit ratio favors no change other than as noted in my dictated progress note. Diagnosis: Problems: (1) Bipolar disorder, curr episode mixed, severe, with psychotic features (2) Anxiety disorder, unspecified (3) Impulse disorder, unspecified (4) Schizoaffective disorder, bipolar type CRISELDA GARCIA MD Jun 02, 2020 20:59
--- NOTE | 2020-06-02 23:50 | NUR ---
Pt sleeping in her room this evening. Pt was woken up to administer HS medications. Pt compliant with whole medications one at a time. A/O to name, . Pt slow to respond. No agitation or delusions this evening.
[2020-06-03 06:04] VITALS: BP 108/71
[2020-06-03] MEDS: QUEtiapine 50 MG TABLET. PO SCH (08:03)
[2020-06-03] MEDS: LORazepam 1 MG TABLET PO SCH ×2 (08:03→20:09)
[2020-06-03] MEDS: PANTOPRAZOLE 40 MG TABLET. PO SCH (08:03)
[2020-06-03] MEDS: FLUoxetine HCL 20 MG CAPSULE PO SCH (08:03)
[2020-06-03] MEDS: risperiDONE 1 MG TABLET. PO SCH ×2 (08:05→20:08)
[2020-06-03] MEDS: OLANZapine 5 MG TABLET PO SCH (08:05)
--- NOTE | 2020-06-03 08:17 | PDOC ---
Exam Note: Cristiano Note: This note is a late entry for 06/02/2020 covers elements not covered in my initial note. Subjective: The patient was reviewed on telehealth rounds in the evening of 06/02/2020 with Payal BAXTER. Discussed with nursing staff, reviewed the chart. The patient slept 8-1/2 hours previous night. She remains quite delusional, suspicious, complained of sedation in the afternoon, refused her afternoon Ativan. She is currently on 2 mg 3 times a day and we will reduce this down to 2 mg in the morning and 3 mg at night and then gradually taper. We will also consult Dr. Gray, Neurology given her history of seizure disorder and to make sure she does not have a seizure as we withdraw her off the Ativan gradually. She has been somewhat obsessive, delusional about her nephew and nieces. I was called as an emergency in the afternoon by the nursing staff for the above. Review of Systems: Ambulation impaired. No CV, , pulmonary, eye, ENT system symptoms on review. Mental Status Exam: The patient is reasonably oriented. Speech is coherent, has some latency. Abstraction is fair. Computation is impaired. Language function is intact. Attention span is short. Mood and affect withdrawn, somewhat paranoid. Laboratory Data: Reviewed. Impression: Schizoaffective disorder bipolar type, mixed with psychotic features. Anxiety disorder unspecified. Impulse control disorder unspecified. Plan: Taper the Ativan as above. Continue rest of the psychotropics. Depakote has been increased. We will check labs level and ammonia level. Consider increasing Invega, stopping the Zyprexa, adjusting the Seroquel gradually. For now we have adjusted the Depakote since level was sub-therapeutic at 39. Assessment: Vital Signs/I&O: Vital Signs Date Time Temp Pulse Resp B/P (MAP) Pulse Ox O2 Delivery O2 Flow Rate FiO2 06/03/20 06:04 96.8 84 20 108/71 (83) 95 06/01/20 15:00 Room Air I & O 06/02/20 06/02/20 06/03/20 15:00 23:00 07:00 Intake Total 600 ml 220 ml Balance 600 ml 220 ml Current Medications: Meds: Current Medications Medications (Trade) Dose Ordered Sig/Bang Route PRN Reason Start Time Stop Time Status Last Admin Dose Admin Acetaminophen (Tylenol) 650 mg PRN Q6HRS PRN PO MILD PAIN / TEMP > 100.3'F 06/01/20 12:15 06/01/20 12:53 DC Multi-Ingredient Ointment (Analgesic [place]) 1 lou PRN QID PRN TP MUSCLE PAIN 06/01/20 12:15 Al Hydroxide/Mg Hydroxide (Mylanta Plus Xs) 15 ml PRN AFTMEALHC PRN PO DYSPEPSIA 06/01/20 12:15 Magnesium Hydroxide (Milk Of Magnesia) 2,400 mg PRN QHS PRN PO CONSTIPATION 06/01/20 12:15 06/01/20 13:00 DC Acetaminophen (Tylenol) 650 mg PRN Q4HRS PRN PO pain or fever 06/01/20 12:45 Bisacodyl (Dulcolax Supp) 10 mg PRN DAILY PRN RC CONSTIPATION 06/01/20 12:45 Divalproex Sodium (Depakote) 250 mg TID PO 06/01/20 14:00 06/01/20 19:18 DC 06/01/20 14:55 Fluoxetine HCl (PROzac) 20 mg DAILY PO 06/02/20 09:00 06/03/20 08:03 Albuterol/ Ipratropium (Duoneb) 3 ml PRN Q4HRS PRN NEB SHORTNESS OF BREATH 06/01/20 12:45 Lorazepam (Ativan) 2 mg TID PO 06/01/20 14:00 06/02/20 15:48 DC 06/02/20 15:04 Sodium Biphosphate/ Sodium Phosphate (Fleet Adult) 133 ml PRN DAILY PRN RC CONSTIPATION 06/01/20 12:45 Olanzapine (ZyPREXA) 5 mg DAILY PO 06/02/20 09:00 06/03/20 08:05 Guaifenesin (Robitussin Dm) 10 ml PRN Q4HRS PRN PO COUGH 06/01/20 13:00 Non-Formulary Medication (Magnesium Hydroxide (Milk Of Magnesia)) 2,400 mg PRN DAILY PRN PO CONSTIPATION 06/01/20 12:45 06/01/20 13:00 DC Pantoprazole Sodium (Protonix) 40 mg DAILYAC PO 06/02/20 07:30 06/03/20 08:03 Risperidone (RisperDAL) 1 mg BID PO 06/01/20 21:00 06/03/20 08:05 Quetiapine Fumarate (SEROquel) 50 mg DAILY PO 06/02/20 09:00 06/03/20 08:03 Quetiapine Fumarate (SEROquel) 300 mg HS PO 06/01/20 21:00 06/02/20 20:33 Magnesium Hydroxide (Milk Of Magnesia) 2,400 mg PRN BID PRN PO CONSTIPATION 06/01/20 13:15 Divalproex Sodium (Depakote Er) 1,000 mg QHS PO 06/01/20 21:00 06/02/20 20:34 Lorazepam (Ativan) 2 mg 0800 PO 06/03/20 08:00 06/07/20 21:00 06/03/20 08:03 Lorazepam (Ativan) 1 mg 0800 PO 06/08/20 08:00 06/10/20 21:00 Lorazepam (Ativan) 3 mg 2100 PO 06/02/20 21:00 06/04/20 23:59 06/02/20 20:35 Lorazepam (Ativan) 2 mg 2100 PO 06/05/20 21:00 06/10/20 23:59 Olanzapine (ZyPREXA ZYDIS) 2.5 mg PRN Q2HRS PRN PO PSYCHOSIS 06/02/20 16:57 06/02/20 17:14 Current Medications Medications (Trade) Dose Ordered Sig/Bang Route PRN Reason Start Time Stop Time Status Last Admin Dose Admin Fluoxetine HCl (PROzac) 20 mg DAILY PO 06/02/20 09:00 06/03/20 08:03 Olanzapine (ZyPREXA) 5 mg DAILY PO 06/02/20 09:00 06/03/20 08:05 Quetiapine Fumarate (SEROquel) 50 mg DAILY PO 06/02/20 09:00 06/03/20 08:03 Lorazepam (Ativan) 2 mg 0800 PO 06/03/20 08:00 06/07/20 21:00 06/03/20 08:03 Lorazepam (Ativan) 3 mg 2100 PO 06/02/20 21:00 06/04/20 23:59 06/02/20 20:35 Olanzapine (ZyPREXA ZYDIS) 2.5 mg PRN Q2HRS PRN PO PSYCHOSIS 06/02/20 16:57 06/02/20 17:14 I have reviewed the current psychotropics carefully including drug interactions. Risk benefit ratio favors no change other than as noted in my dictated progress note. Diagnosis: Problems: (1) Schizoaffective disorder, bipolar type (2) Anxiety disorder, unspecified (3) Impulse disorder, unspecified (4) Bipolar disorder, curr episode mixed, severe, with psychotic features CRISELDA GARCIA MD Jun 03, 2020 08:17
[2020-06-03] MEDS: ACETAMINOPHEN 325 MG TABLET PO PRN (10:14)
--- NOTE | 2020-06-03 11:32 | CONS ---
DATE OF CONSULTATION: 06/03/2020 ATTENDING PHYSICIANS: Dr. Malcom Oseguera and Dr. Ralf Mack The patient is here for evaluation of her schizoaffective. HISTORY OF PRESENT ILLNESS: the patient is a 54-year-old female who was sent here for adjustment of her medications. She has underlying schizoaffective disorder with dementia. She has threatened the staff trying to leave the facility, delusional behavior and acting out. She is profoundly demented. PAST MEDICAL HISTORY: Significant for schizoaffective disorder, bipolar, dementia, hepatitis, gastroesophageal reflux disease, chronic alcohol use, seizure disorder, goiter and pancreatitis. ALLERGIES: SHE HAS ALLERGIES TO MORPHINE, EXACT REACTION IS UNCLEAR. CURRENT MEDICINES: Include albuterol, Tylenol, Depakote, fluoxetine, lorazepam, olanzapine, omeprazole, Invega, and Seroquel. SOCIAL HISTORY: She had been a smoker in the past. Alcohol use as noted heavy in the past. FAMILY HISTORY: Unobtainable. REVIEW OF SYSTEMS: Unobtainable due to the patient's condition. PHYSICAL EXAMINATION: GENERAL: When I saw her, this is a pleasant female, but she appears sedated from medication. INITIAL VITAL SIGNS: Showed a blood pressure 108/71, pulse is 84 and regular, temperature 97.2 degrees Fahrenheit, oxygen saturation 95% on room air. HEENT: Head is without trauma. Pupils are reactive. Sclerae nonicteric. Oropharynx is clear. NECK: Supple, no bruits. No stridor. LUNGS: Good breath sounds. CARDIOVASCULAR: Showed regular heart tones. No gallops. ABDOMEN: Soft. No guarding or tenderness. EXTREMITIES: Without edema. NEUROLOGIC: Her speech is intact. Her affect is quite flat. She has significant psychomotor retardation. She is demented and not aware of person or time. ASSESSMENT: 1. This 54-year-old female has schizoaffective disorder with behavioral issues. 2. Psychosis. 3. Dementia. 4. Bipolar disorder. 5. Impulse control. RECOMMENDATIONS: 1. I reviewed her medications. 2. The patient is stable from a medical standpoint. 3. We should gladly follow along during her inpatient stay. Thank you again for asking me to see this patient for medical consultation. RALF MACK MD DR: CAM/sekou JOB#: [id number] / [id number]
--- NOTE | 2020-06-03 13:18 | NUR ---
Pt has remained calm and appropriate during shift. Often seen in front of the nurse station with other pts. Aside from being around other pts she appears withdrawn and does not engage with others freely. She denies SI or HI. She is complaint with medications. She complained of pain in her Rt knee, unable to rate or describe pain. PRN Acetaminophen administered at her request with reported relief. She is orientated to self and place only. When asked where she is at she looked at this nurses name tag prior to answering. Will continue to monitor and report to next shift.
--- NOTE | 2020-06-03 14:50 | NUR ---
Pt appears to be displaying an increase in hyperfixation over calling multiple members of her family, friends, her former longterm, as well a displaying an increase in fixation over her great nephew once again. She has made repeated trips to the nurse station to request nursing staff call family/friends who no one has the phone numbers to, and is unable to be redirected or reoriented for long. Zydis 2.5 mg PO administered for increase in anxiety. Carolyn at first refused to take the medication, and stated she would not take it until/unless she called family/friends. This same bribing scenario was displayed by pt yesterday regarding administration of PRN anti-anxiety medications in response to increased anxiety/agitation. Pt was able to be directed to take medication without further difficulty.
[2020-06-03 15:58] VITALS: BP 137/80
[2020-06-03] MEDS ORDERED: LORazepam 1 MG TABLET PO ONE (18:00)
--- NOTE | 2020-06-03 19:52 | CONS ---
DATE OF CONSULTATION: 06/02/2020 NEUROLOGY CONSULTATION REFERRING PHYSICIAN: Dr. Oseguera. REASON FOR CONSULTATION: History of seizure disorder. HISTORY OF PRESENT ILLNESS: This is a 54-year-old female who was admitted on 06/01/2020 on account of worsening of psychotic symptoms with a diagnosis of schizoaffective disorders and bipolar disorders as well. The patient has been delusional in the last few days. Therefore, she was admitted for further psychiatric evaluation. Neuro consult was requested because the patient has history of seizure disorder of unknown etiology. The patient has been residing in [facility]. She has been getting more psychotic, paranoid and agitated. Her appetite has been erratic with disturbed sleep. The patient admitted to having history of seizure disorder, but she does not give further information. PAST MEDICAL HISTORY: Significant for seizure disorder, history of goiter, thyrotoxicosis, history of drugs and alcohol abuse, GERD. However, the last drink was in 2012. History of asthma, hepatitis and pancreatitis. FAMILY HISTORY: Noncontributory. SOCIAL HISTORY: The patient denies smoking, but she drinks alcohol. She is not able to provide any information. ALLERGIES: MORPHINE. CURRENT MEDICATIONS: Lorazepam, olanzapine, Seroquel, Prozac, pantoprazole, Depakote, risperidone, albuterol nebulizer, Tylenol. REVIEW OF SYSTEMS: A 12-point review of system was performed as mentioned above in history of present illness, otherwise unremarkable, I just mentioned that. PHYSICAL EXAMINATION: GENERAL: Well-developed, well-nourished female, not in acute distress. She weighs 98.1 kilos. VITAL SIGNS: Temperature 96, oxygen saturation 95% on room air, blood pressure 133/85, respiratory rate 16, pulse is 100 and regular. HEENT: Normocephalic, atraumatic, otherwise unremarkable. NECK: Supple. Negative for carotid bruit, lymphadenopathy or thyromegaly. LUNGS: Clear to A and P. CARDIOVASCULAR: Regular rate and rhythm. Normal S1, S2. There is no S3, S4 or murmur. ABDOMEN: Soft. Bowel sounds positive. EXTREMITIES: Negative for cyanosis, clubbing or edema. NEUROLOGICAL: Mental status: The patient is oriented to herself and situation. Coherent, speech is fluent. Memory, judgment, and abstract thinking is impaired. No language dysfunctions. Cranial nerves: Pupils are equal and reactive. Extraocular movements are intact. There is no nystagmus. There is no facial motor or sensory deficit. Hearing appeared to be intact. The palate is elevated symmetrically. Sternocleidomastoid muscles are powerful bilaterally. The patient shrugs her shoulders symmetrically, protrudes her tongue in the midline without fasciculation or atrophy. Motor examination: No focal muscle bulk was seen. The tone is normal. The strength is 5/5 throughout. Sensory examination: Revealed diminished pinprick and light touch senses throughout. Deep tendon reflexes were asymmetric and hypoactive with absent Achilles responses. Gait and coordination are normal. LABORATORY DATA: From 06/01/2020 revealed white blood cells of 7.6, hemoglobin 10.9, hematocrit 33.8, platelet count 299,000. Chemistry revealed sodium of 139, potassium 4, chloride 101, CO2 of 27, BUN 16, creatinine 0.9, glucose 144, calcium 8.4, magnesium is normal. Iron is low at 24 with high TIBC. Iron saturation is low at 0.1. Liver enzymes are normal. Lipid profile revealed hypertriglyceridemia. Thyroid profile is normal. Urinalysis revealed a trace of leukocyte esterase with white blood cells of 11-20 with positive nitrite. Valproic acid is low at 39. COVID virus PCR is nondetected. IMPRESSION: 1. Multiple psychiatric disorders including schizoaffective disorders and bipolar disorders with intermittent psychotic features. 2. Longstanding history of seizure disorder, etiology uncertain. The patient is unable to provide any further information. 3. Multiple medical problems includes gastroesophageal reflux disease, chronic alcohol use, seizure disorder and goiter. 4. Possible urinary tract infections. RECOMMENDATIONS: 1. Repeat urinalysis. 2. Continue with current management initiated by Dr. Oseguera. 3. Adjust Depakote level until it becomes therapeutic. 4. We will taper gradually the lorazepam dose. M Daniel JOSE MD DR: ADITYA/sekou JOB#: [id number] / [id number]
[2020-06-03] MEDS: DIVALPROEX ER 500 MG TAB.ER.24H PO SCH (20:08)
[2020-06-03] MEDS: QUEtiapine 100 MG TABLET. PO SCH (20:08)
--- NOTE | 2020-06-03 20:56 | PDOC ---
Exam Note: Cristiano Note: Please also refer to the separate dictated note~for this date of service dictated separately.~Patient seen individually. Discussed the patient with Nursing staff reviewed the chart.~Reviewed interim history and current functioning. Reviewed vital signs,~Labs/ Radiology~and current medications noted below. Continue current treatment with the changes noted in the dictated addendum note Assessment: Vital Signs/I&O: Vital Signs Date Time Temp Pulse Resp B/P (MAP) Pulse Ox O2 Delivery O2 Flow Rate FiO2 06/03/20 15:58 97.8 110 18 137/80 (99) 94 06/01/20 15:00 Room Air I & O 06/02/20 06/02/20 06/03/20 15:00 23:00 07:00 Intake Total 600 ml 220 ml Balance 600 ml 220 ml Current Medications: Meds: Current Medications Medications (Trade) Dose Ordered Sig/Bang Route PRN Reason Start Time Stop Time Status Last Admin Dose Admin Acetaminophen (Tylenol) 650 mg PRN Q6HRS PRN PO MILD PAIN / TEMP > 100.3'F 06/01/20 12:15 06/01/20 12:53 DC Multi-Ingredient Ointment (Analgesic [place]) 1 lou PRN QID PRN TP MUSCLE PAIN 06/01/20 12:15 Al Hydroxide/Mg Hydroxide (Mylanta Plus Xs) 15 ml PRN AFTMEALHC PRN PO DYSPEPSIA 06/01/20 12:15 Magnesium Hydroxide (Milk Of Magnesia) 2,400 mg PRN QHS PRN PO CONSTIPATION 06/01/20 12:15 06/01/20 13:00 DC Acetaminophen (Tylenol) 650 mg PRN Q4HRS PRN PO pain or fever 06/01/20 12:45 06/03/20 10:14 Bisacodyl (Dulcolax Supp) 10 mg PRN DAILY PRN RC CONSTIPATION 06/01/20 12:45 Divalproex Sodium (Depakote) 250 mg TID PO 06/01/20 14:00 06/01/20 19:18 DC 06/01/20 14:55 Fluoxetine HCl (PROzac) 20 mg DAILY PO 06/02/20 09:00 06/03/20 08:03 Albuterol/ Ipratropium (Duoneb) 3 ml PRN Q4HRS PRN NEB SHORTNESS OF BREATH 06/01/20 12:45 Lorazepam (Ativan) 2 mg TID PO 06/01/20 14:00 06/02/20 15:48 DC 06/02/20 15:04 Sodium Biphosphate/ Sodium Phosphate (Fleet Adult) 133 ml PRN DAILY PRN RC CONSTIPATION 06/01/20 12:45 Olanzapine (ZyPREXA) 5 mg DAILY PO 06/02/20 09:00 06/03/20 17:52 DC 06/03/20 08:05 Guaifenesin (Robitussin Dm) 10 ml PRN Q4HRS PRN PO COUGH 06/01/20 13:00 Non-Formulary Medication (Magnesium Hydroxide (Milk Of Magnesia)) 2,400 mg PRN DAILY PRN PO CONSTIPATION 06/01/20 12:45 06/01/20 13:00 DC Pantoprazole Sodium (Protonix) 40 mg DAILYAC PO 06/02/20 07:30 06/03/20 08:03 Risperidone (RisperDAL) 1 mg BID PO 06/01/20 21:00 06/03/20 20:08 Quetiapine Fumarate (SEROquel) 50 mg DAILY PO 06/02/20 09:00 06/03/20 08:03 Quetiapine Fumarate (SEROquel) 300 mg HS PO 06/01/20 21:00 06/03/20 20:08 Magnesium Hydroxide (Milk Of Magnesia) 2,400 mg PRN BID PRN PO CONSTIPATION 06/01/20 13:15 Divalproex Sodium (Depakote Er) 1,000 mg QHS PO 06/01/20 21:00 06/03/20 20:08 Lorazepam (Ativan) 2 mg 0800 PO 06/03/20 08:00 06/07/20 21:00 06/03/20 08:03 Lorazepam (Ativan) 1 mg 0800 PO 06/08/20 08:00 06/10/20 21:00 Lorazepam (Ativan) 3 mg 2100 PO 06/02/20 21:00 06/04/20 23:59 06/03/20 20:09 Lorazepam (Ativan) 2 mg 2100 PO 06/05/20 21:00 06/10/20 23:59 Olanzapine (ZyPREXA ZYDIS) 2.5 mg PRN Q2HRS PRN PO PSYCHOSIS 06/02/20 16:57 06/03/20 14:50 Lorazepam (Ativan) 1 mg 1X ONCE PO 06/03/20 18:00 06/03/20 18:12 DC Paliperidone (Invega) 6 mg DAILY PO 06/04/20 09:00 Current Medications Medications (Trade) Dose Ordered Sig/Bang Route PRN Reason Start Time Stop Time Status Last Admin Dose Admin Lorazepam (Ativan) 2 mg 0800 PO 06/03/20 08:00 06/07/20 21:00 06/03/20 08:03 Lorazepam (Ativan) 3 mg 2100 PO 06/02/20 21:00 06/04/20 23:59 06/03/20 20:09 I have reviewed the current psychotropics carefully including drug interactions. Risk benefit ratio favors no change other than as noted in my dictated progress note. Diagnosis: Problems: (1) Schizoaffective disorder, bipolar type (2) Anxiety disorder, unspecified (3) Impulse disorder, unspecified (4) Bipolar disorder, curr episode mixed, severe, with psychotic features CRISELDA GARCIA MD Jun 03, 2020 20:56
[2020-06-04 05:08] LABS: HEMOGLOBIN A1C 6.4 % (4.8-5.6)
[2020-06-04 05:44] VITALS: BP 117/83
[2020-06-04 06:52] LABS: BASO % 0 % (0-3); EOS # 0.2 x10^3/uL (0.0-0.7); EOS % 3 % (0-3); HEMATOCRIT 33.9 % (36.0-47.0); HEMOGLOBIN 10.8 g/dL (12.0-15.5); LYMPH # 1.9 x10^3/uL (1.0-4.8); LYMPH % 26 % (24-48); MEAN CORPUSCULAR HEMOGLOBIN 25 pg (25-35); MEAN CORPUSCULAR HGB CONC 32 g/dL (31-37); MEAN CORPUSCULAR VOLUME 78 fL (79-100); MONO # 0.8 x10^3/uL (0.0-1.1); MONO % 11 % (0-9); NEUT # 4.4 x10^3uL (1.8-7.7); NEUT % 60 % (31-73); PLATELET COUNT 301 x10^3/uL (140-400); RED BLOOD COUNT 4.35 x10^6/uL (3.50-5.40); RED CELL DISTRIBUTION WIDTH 19.5 % (11.5-14.5); WHITE BLOOD COUNT 7.3 x10^3/uL (4.0-11.0)
[2020-06-04 07:05] LABS: ALBUMIN 3.1 g/dL (3.4-5.0); ALBUMIN/GLOBULIN RATIO 0.6 (1.0-1.7); ALK PHOS 111 U/L (46-116); ALT (SGPT) 38 U/L (14-59); ANION GAP 7 (6-14); AST (SGOT) 35 U/L (15-37); BLOOD UREA NITROGEN 16 mg/dL (7-20); BUN/CREATININE RATIO 18 (6-20); CALCIUM 8.5 mg/dL (8.5-10.1); CARBON DIOXIDE 29 mmol/L (21-32); CHLORIDE 105 mmol/L (98-107); CREATININE 0.9 mg/dL (0.6-1.0); GFR 65.5; GLUCOSE 103 mg/dL (70-99); SODIUM 141 mmol/L (136-145); TOTAL BILIRUBIN 0.2 mg/dL (0.2-1.0); TOTAL PROTEIN 8.1 g/dL (6.4-8.2)
[2020-06-04 07:08] LABS: VAL ACID 71 mcg/mL (50-100)
--- NOTE | 2020-06-04 07:38 | PDOC ---
Exam Note: Cristiano Note: This note is a late entry for 06/03/2020 covers elements not covered in my initial note. Subjective: The patient was reviewed on telehealth rounds in the evening of 06/03/2020 with Payal BAXTER. Discussed with nursing staff, reviewed the chart. The patient slept 8-3/4 hours previous night. She has been somewhat withdrawn. During the evening she was extremely obsessive, ruminative about calling her family to check on things and calling [facility] and her friends. I have carefully reviewed the patients psychotropics. At admission she was on Invega 3 mg daily which was changed to Risperdal auto-substitution at admission. Currently she remains on Zyprexa 5 mg daily, Risperdal and Seroquel, 3 atypical antipsychotics and as stated below we are going to simplify this regimen. She remains quite paranoid, psychotic but not agitated or aggressive. She is wanting to call the family because she believes her nieces and nephews are being hurt. This is what she was doing at [facility] calling the police for the same reason. We will be checking her valproic acid level in the morning. COVID screen is negative. Review of Systems: Ambulation impaired. No CV, , pulmonary, eye, ENT system symptoms on review. As I met her on telehealth rounds she stated she fell on her bottom but no injury noted. Mental Status Exam: The patient is reasonably oriented. She is somewhat paranoid, suspicious but otherwise verbal, interactive. Speech is coherent, has some latency. Abstraction is fair. Computation is impaired. Language function is intact. Attention span is short. Mood and affect somewhat paranoid. Laboratory Data: Reviewed. Impression: Schizoaffective disorder bipolar type, mixed with psychotic features. Anxiety disorder unspecified. Impulse control disorder unspecified. Plan: Stop the Zyprexa. Increase Invega to 6 mg a day. Consider stopping the Risperdal. Maintain Seroquel at current dosage. Check a valproic acid level. Adjust Depakote thereafter. Assessment: Vital Signs/I&O: Vital Signs Date Time Temp Pulse Resp B/P (MAP) Pulse Ox O2 Delivery O2 Flow Rate FiO2 06/04/20 05:44 97.6 87 16 117/83 (94) 95 06/01/20 15:00 Room Air I & O 06/03/20 06/03/20 06/04/20 15:00 23:00 07:00 Intake Total 480 ml 120 ml 120 ml Balance 480 ml 120 ml 120 ml Labs: Laboratory Tests Test 06/04/20 06:30 White Blood Count 7.3 x10^3/uL (4.0-11.0) Red Blood Count 4.35 x10^6/uL (3.50-5.40) Hemoglobin 10.8 g/dL (12.0-15.5) L Hematocrit 33.9 % (36.0-47.0) L Mean Corpuscular Volume 78 fL (79-100) L Mean Corpuscular Hemoglobin 25 pg (25-35) Mean Corpuscular Hemoglobin Concent 32 g/dL (31-37) Red Cell Distribution Width 19.5 % (11.5-14.5) H Platelet Count 301 x10^3/uL (140-400) Neutrophils (%) (Auto) 60 % (31-73) Lymphocytes (%) (Auto) 26 % (24-48) Monocytes (%) (Auto) 11 % (0-9) H Eosinophils (%) (Auto) 3 % (0-3) Basophils (%) (Auto) 0 % (0-3) Neutrophils # (Auto) 4.4 x10^3uL (1.8-7.7) Lymphocytes # (Auto) 1.9 x10^3/uL (1.0-4.8) Monocytes # (Auto) 0.8 x10^3/uL (0.0-1.1) Eosinophils # (Auto) 0.2 x10^3/uL (0.0-0.7) Basophils # (Auto) 0.0 x10^3/uL (0.0-0.2) Sodium Level 141 mmol/L (136-145) Potassium Level 4.0 mmol/L (3.5-5.1) Chloride Level 105 mmol/L (98-107) Carbon Dioxide Level 29 mmol/L (21-32) Anion Gap 7 (6-14) Blood Urea Nitrogen 16 mg/dL (7-20) Creatinine 0.9 mg/dL (0.6-1.0) Estimated GFR (Cockcroft-Gault) 65.5 BUN/Creatinine Ratio 18 (6-20) Glucose Level 103 mg/dL (70-99) H Calcium Level 8.5 mg/dL (8.5-10.1) Total Bilirubin 0.2 mg/dL (0.2-1.0) Aspartate Amino Transferase (AST) 35 U/L (15-37) Alanine Aminotransferase (ALT) 38 U/L (14-59) Alkaline Phosphatase 111 U/L (46-116) Ammonia 16 mcmol/L (11-34) Total Protein 8.1 g/dL (6.4-8.2) Albumin 3.1 g/dL (3.4-5.0) L Albumin/Globulin Ratio 0.6 (1.0-1.7) L Valproic Acid Level 71 mcg/mL (50-100) Valproic Acid Last Dose Date 06/03/20 Valproic Acid Last Dose Time 2100 Current Medications: Meds: Laboratory Tests Test 06/04/20 06:30 White Blood Count 7.3 x10^3/uL Red Blood Count 4.35 x10^6/uL Hemoglobin 10.8 g/dL Hematocrit 33.9 % Mean Corpuscular Volume 78 fL Mean Corpuscular Hemoglobin 25 pg Mean Corpuscular Hemoglobin Concent 32 g/dL Red Cell Distribution Width 19.5 % Platelet Count 301 x10^3/uL Neutrophils (%) (Auto) 60 % Lymphocytes (%) (Auto) 26 % Monocytes (%) (Auto) 11 % Eosinophils (%) (Auto) 3 % Basophils (%) (Auto) 0 % Neutrophils # (Auto) 4.4 x10^3uL Lymphocytes # (Auto) 1.9 x10^3/uL Monocytes # (Auto) 0.8 x10^3/uL Eosinophils # (Auto) 0.2 x10^3/uL Basophils # (Auto) 0.0 x10^3/uL Sodium Level 141 mmol/L Potassium Level 4.0 mmol/L Chloride Level 105 mmol/L Carbon Dioxide Level 29 mmol/L Anion Gap 7 Blood Urea Nitrogen 16 mg/dL Creatinine 0.9 mg/dL Estimated GFR (Cockcroft-Gault) 65.5 BUN/Creatinine Ratio 18 Glucose Level 103 mg/dL Calcium Level 8.5 mg/dL Total Bilirubin 0.2 mg/dL Aspartate Amino Transf (AST/SGOT) 35 U/L Alanine Aminotransferase (ALT/SGPT) 38 U/L Alkaline Phosphatase 111 U/L Ammonia 16 mcmol/L Total Protein 8.1 g/dL Albumin 3.1 g/dL Albumin/Globulin Ratio 0.6 Valproic Acid (Depakene) Level 71 mcg/mL Valproic Acid Last Dose Date 06/03/20 Valproic Acid Last Dose Time 2100 Current Medications Medications (Trade) Dose Ordered Sig/Bang Route PRN Reason Start Time Stop Time Status Last Admin Dose Admin Acetaminophen (Tylenol) 650 mg PRN Q6HRS PRN PO MILD PAIN / TEMP > 100.3'F 06/01/20 12:15 06/01/20 12:53 DC Multi-Ingredient Ointment (Analgesic [place]) 1 lou PRN QID PRN TP MUSCLE PAIN 06/01/20 12:15 Al Hydroxide/Mg Hydroxide (Mylanta Plus Xs) 15 ml PRN AFTMEALHC PRN PO DYSPEPSIA 06/01/20 12:15 Magnesium Hydroxide (Milk Of Magnesia) 2,400 mg PRN QHS PRN PO CONSTIPATION 06/01/20 12:15 06/01/20 13:00 DC Acetaminophen (Tylenol) 650 mg PRN Q4HRS PRN PO pain or fever 06/01/20 12:45 06/03/20 10:14 Bisacodyl (Dulcolax Supp) 10 mg PRN DAILY PRN RC CONSTIPATION 06/01/20 12:45 Divalproex Sodium (Depakote) 250 mg TID PO 06/01/20 14:00 06/01/20 19:18 DC 06/01/20 14:55 Fluoxetine HCl (PROzac) 20 mg DAILY PO 06/02/20 09:00 06/03/20 08:03 Albuterol/ Ipratropium (Duoneb) 3 ml PRN Q4HRS PRN NEB SHORTNESS OF BREATH 06/01/20 12:45 Lorazepam (Ativan) 2 mg TID PO 06/01/20 14:00 06/02/20 15:48 DC 06/02/20 15:04 Sodium Biphosphate/ Sodium Phosphate (Fleet Adult) 133 ml PRN DAILY PRN RC CONSTIPATION 06/01/20 12:45 Olanzapine (ZyPREXA) 5 mg DAILY PO 06/02/20 09:00 06/03/20 17:52 DC 06/03/20 08:05 Guaifenesin (Robitussin Dm) 10 ml PRN Q4HRS PRN PO COUGH 06/01/20 13:00 Non-Formulary Medication (Magnesium Hydroxide (Milk Of Magnesia)) 2,400 mg PRN DAILY PRN PO CONSTIPATION 06/01/20 12:45 06/01/20 13:00 DC Pantoprazole Sodium (Protonix) 40 mg DAILYAC PO 06/02/20 07:30 06/03/20 08:03 Risperidone (RisperDAL) 1 mg BID PO 06/01/20 21:00 06/03/20 20:08 Quetiapine Fumarate (SEROquel) 50 mg DAILY PO 06/02/20 09:00 06/03/20 08:03 Quetiapine Fumarate (SEROquel) 300 mg HS PO 06/01/20 21:00 06/03/20 20:08 Magnesium Hydroxide (Milk Of Magnesia) 2,400 mg PRN BID PRN PO CONSTIPATION 06/01/20 13:15 Divalproex Sodium (Depakote Er) 1,000 mg QHS PO 06/01/20 21:00 06/03/20 20:08 Lorazepam (Ativan) 2 mg 0800 PO 06/03/20 08:00 06/07/20 21:00 06/03/20 08:03 Lorazepam (Ativan) 1 mg 0800 PO 06/08/20 08:00 06/10/20 21:00 Lorazepam (Ativan) 3 mg 2100 PO 06/02/20 21:00 06/04/20 23:59 06/03/20 20:09 Lorazepam (Ativan) 2 mg 2100 PO 06/05/20 21:00 06/10/20 23:59 Olanzapine (ZyPREXA ZYDIS) 2.5 mg PRN Q2HRS PRN PO PSYCHOSIS 06/02/20 16:57 06/03/20 14:50 Lorazepam (Ativan) 1 mg 1X ONCE PO 06/03/20 18:00 06/03/20 18:12 DC Paliperidone (Invega) 6 mg DAILY PO 06/04/20 09:00 Current Medications Medications (Trade) Dose Ordered Sig/Bang Route PRN Reason Start Time Stop Time Status Last Admin Dose Admin Lorazepam (Ativan) 2 mg 0800 PO 06/03/20 08:00 06/07/20 21:00 06/03/20 08:03 I have reviewed the current psychotropics carefully including drug interactions. Risk benefit ratio favors no change other than as noted in my dictated progress note. Diagnosis: Problems: (1) Schizoaffective disorder, bipolar type (2) Anxiety disorder, unspecified (3) Impulse disorder, unspecified (4) Bipolar disorder, curr episode mixed, severe, with psychotic features CRISELDA GARCIA MD Jun 04, 2020 07:38
[2020-06-04] MEDS: risperiDONE 1 MG TABLET. PO SCH (09:00)
[2020-06-04] MEDS: PALIPERIDONE 6 MG TAB.ER.24. PO SCH (09:11)
[2020-06-04] MEDS: FLUoxetine HCL 20 MG CAPSULE PO SCH (09:11)
[2020-06-04] MEDS: PANTOPRAZOLE 40 MG TABLET. PO SCH (09:11)
[2020-06-04] MEDS: QUEtiapine 50 MG TABLET. PO SCH (09:12)
[2020-06-04] MEDS: LORazepam 1 MG TABLET PO SCH ×2 (09:14→20:04)
--- NOTE | 2020-06-04 10:51 | NUR ---
Pt is calm, cooperative, and compliant. No agitation, no aggression, no hallucinations. She believes she saw her sister Chanelle last night. She is compliant with her medication and assessment.
--- NOTE | 2020-06-04 10:52 | NUR ---
CORETTA sent over updated clinical notes from pt admission until today to the UR dept with [place] [facility] @ [phone].
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
--- NOTE | 2020-06-04 15:00 | NUR ---
ACTIVITY THERAPY ASSESSMENT Completed based on observation and interview. Pt. remained after group to meet with CONSULTING IT ARCHITECT in the day room. When asked what she was here, she could not recall. When asked if she knew where she was, she replied in a "not knowing that the fuck you're doing facility." She shared she was living in a house in [place] and mostly watched whatever was on TV. In group, she shared she used to enjoy cooking and playing games. She shared she does live with a lot of stress and sometimes gets stressed for no reason. She reported hearing and seeing ok but her memory "sucks." She has a good relationship with her family she says and notes indicated she has moments where she is hyperfixated on their whereabouts. Pt. had a flat affect during interview and minimal eye contact with CONSULTING IT ARCHITECT. She is quiet but calm most of the time. She appears to have minimal leisure interests but was agreeable with a goal of attending one Activity Therapy group per day. Initial goal aimed to increase socialization and engagement: Pt. will participate in at least one Activity Therapy group per day.
[2020-06-04 15:56] VITALS: BP 133/88
--- NOTE | 2020-06-04 16:10 | NUR ---
CORETTA received a call from Jacob at [employer] who stated that they have approved dates 06/01-06/04 with a clinical update on 06/05. Jacob requested that the updated notes be sent in prior to 1200 so that all clinical can be reviewed and decisions made prior to 1600.
--- NOTE | 2020-06-04 16:41 | TX PLAN ---
Interdisciplinary Tx Plan Admission Information Jun 01, 2020 at 11:07 Legal Status (on Admission): Voluntary DPOA/Guardian Name: Chanelle Schwab Contact Other Contact Name: [facility] Other Contact Verified Code Status: Full Code Allergies: Coded Allergies: morphine (Verified Allergy, Unknown, Unknown, 06/01/20) Diagnoses Primary Diagnosis: Schizophrenia, Bipolar, Dementia Reasons for Admission: Delusions, Hallucinations, Poor impulse control, Other Problem in Patient's Words: She continues to exhibit behaviors and needs evaluated Additional Admission Comments: According to the intake, pt is threatened by staff, trying to leave facility, delusions of niece and nephew being hurt or left in a house, calling 911 to report danger, anxious, panic attacks, screaming out Problems Active Problems: withdrawn hyperfixed on family needy with phone use intermittent delusions Inactive Problems: medication compliant Pt Strengths/Limitations Ability for [place]: Poor Cognitive Functioning/Ability: Fair Communication Skills/Ability: Fair Financial Resources: Fair Insight/Judgement: Poor Intellectual Ability: Fair Physical Health: Poor Social Skills: Fair Stability in Family: Fair Stability in School/Work: Poor Verbal Skills: Fair Discharge Criteria Discharge Criteria: No need for close observ., Adequate arrangements @DC, Improved behavior, Improved mood/thought Preliminary Discharge Plan Preliminary DC Plan: Current Living Arrange. Special Precautions Fall Risk: Low Initial D/C Plan Pt will plan to discharge back to [facility] once stable. Identified Discharge Needs: Psychiatric follow-up Currently Utilized Resources Currently Utilized Resources/P: Primary Care Physician Referrals Community Resources: Psychiatry services Identified Problems/Hx/Goals Objectives/Short-Term Goals Short Term Goals: Dec. Hallucination/Delus, Dec. Outbursts, Medication Stabilization, Promote Coping Skill Short Term Goals in Patient's: N/A Interventions/Frequency Staff Interventions/Frequency&: Psychiatrist to assess pt at least 3x per week to monitor medication. Piece Jobber to assess pt at least 2x per week for discharge planning and any potential barriers or needs for care. Nursing to assess pt mood, behaviors and complete 15 minute checks daily. Encourage group participation in activities (if applicable) or 1:1 engagement as assesed by the Activity Dept. 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 Pt has not worked in over 20 years according to pt family. Education: Pt did not complete highschool; last grade attended was the 10th grade. Community Follow-up Primary Care Physician Psychiatry services Community Provider/Family Inpu: N/A Treatment Plan Explained Patient/Quick Mixer Operator had this treatment plan explained to him/her as indicated by the signature below and has been given the opportunity to ask questions and make suggestions: Date: Patient/Quick Mixer Operator Signature: Patient/Quick Mixer Operator Decline: No (Sister Chanelle very active in pt care) FLORINDA CORTEZ Jun 04, 2020 16:41
[2020-06-04] MEDS: QUEtiapine 100 MG TABLET. PO SCH (20:04)
[2020-06-04] MEDS: DIVALPROEX ER 500 MG TAB.ER.24H PO SCH (20:05)
--- NOTE | 2020-06-04 21:06 | PDOC ---
Exam Note: Cristiano Note: Please also refer to the separate dictated note~for this date of service dictated separately.~Patient seen individually. Discussed the patient with Nursing staff reviewed the chart.~Reviewed interim history and current functioning. Reviewed vital signs,~Labs/ Radiology~and current medications noted below. Continue current treatment with the changes noted in the dictated addendum note Assessment: Vital Signs/I&O: Vital Signs Date Time Temp Pulse Resp B/P (MAP) Pulse Ox O2 Delivery O2 Flow Rate FiO2 06/04/20 15:56 97.2 104 16 133/88 (103) 95 06/01/20 15:00 Room Air I & O 06/03/20 06/03/20 06/04/20 15:00 23:00 07:00 Intake Total 480 ml 120 ml 120 ml Balance 480 ml 120 ml 120 ml Labs: Laboratory Tests Test 06/04/20 06:30 White Blood Count 7.3 x10^3/uL (4.0-11.0) Red Blood Count 4.35 x10^6/uL (3.50-5.40) Hemoglobin 10.8 g/dL (12.0-15.5) L Hematocrit 33.9 % (36.0-47.0) L Mean Corpuscular Volume 78 fL (79-100) L Mean Corpuscular Hemoglobin 25 pg (25-35) Mean Corpuscular Hemoglobin Concent 32 g/dL (31-37) Red Cell Distribution Width 19.5 % (11.5-14.5) H Platelet Count 301 x10^3/uL (140-400) Neutrophils (%) (Auto) 60 % (31-73) Lymphocytes (%) (Auto) 26 % (24-48) Monocytes (%) (Auto) 11 % (0-9) H Eosinophils (%) (Auto) 3 % (0-3) Basophils (%) (Auto) 0 % (0-3) Neutrophils # (Auto) 4.4 x10^3uL (1.8-7.7) Lymphocytes # (Auto) 1.9 x10^3/uL (1.0-4.8) Monocytes # (Auto) 0.8 x10^3/uL (0.0-1.1) Eosinophils # (Auto) 0.2 x10^3/uL (0.0-0.7) Basophils # (Auto) 0.0 x10^3/uL (0.0-0.2) Sodium Level 141 mmol/L (136-145) Potassium Level 4.0 mmol/L (3.5-5.1) Chloride Level 105 mmol/L (98-107) Carbon Dioxide Level 29 mmol/L (21-32) Anion Gap 7 (6-14) Blood Urea Nitrogen 16 mg/dL (7-20) Creatinine 0.9 mg/dL (0.6-1.0) Estimated GFR (Cockcroft-Gault) 65.5 BUN/Creatinine Ratio 18 (6-20) Glucose Level 103 mg/dL (70-99) H Calcium Level 8.5 mg/dL (8.5-10.1) Total Bilirubin 0.2 mg/dL (0.2-1.0) Aspartate Amino Transferase (AST) 35 U/L (15-37) Alanine Aminotransferase (ALT) 38 U/L (14-59) Alkaline Phosphatase 111 U/L (46-116) Ammonia 16 mcmol/L (11-34) Total Protein 8.1 g/dL (6.4-8.2) Albumin 3.1 g/dL (3.4-5.0) L Albumin/Globulin Ratio 0.6 (1.0-1.7) L Valproic Acid Level 71 mcg/mL (50-100) Valproic Acid Last Dose Date 06/03/20 Valproic Acid Last Dose Time 2100 Current Medications: Meds: Laboratory Tests Test 06/04/20 06:30 White Blood Count 7.3 x10^3/uL Red Blood Count 4.35 x10^6/uL Hemoglobin 10.8 g/dL Hematocrit 33.9 % Mean Corpuscular Volume 78 fL Mean Corpuscular Hemoglobin 25 pg Mean Corpuscular Hemoglobin Concent 32 g/dL Red Cell Distribution Width 19.5 % Platelet Count 301 x10^3/uL Neutrophils (%) (Auto) 60 % Lymphocytes (%) (Auto) 26 % Monocytes (%) (Auto) 11 % Eosinophils (%) (Auto) 3 % Basophils (%) (Auto) 0 % Neutrophils # (Auto) 4.4 x10^3uL Lymphocytes # (Auto) 1.9 x10^3/uL Monocytes # (Auto) 0.8 x10^3/uL Eosinophils # (Auto) 0.2 x10^3/uL Basophils # (Auto) 0.0 x10^3/uL Sodium Level 141 mmol/L Potassium Level 4.0 mmol/L Chloride Level 105 mmol/L Carbon Dioxide Level 29 mmol/L Anion Gap 7 Blood Urea Nitrogen 16 mg/dL Creatinine 0.9 mg/dL Estimated GFR (Cockcroft-Gault) 65.5 BUN/Creatinine Ratio 18 Glucose Level 103 mg/dL Calcium Level 8.5 mg/dL Total Bilirubin 0.2 mg/dL Aspartate Amino Transf (AST/SGOT) 35 U/L Alanine Aminotransferase (ALT/SGPT) 38 U/L Alkaline Phosphatase 111 U/L Ammonia 16 mcmol/L Total Protein 8.1 g/dL Albumin 3.1 g/dL Albumin/Globulin Ratio 0.6 Valproic Acid (Depakene) Level 71 mcg/mL Valproic Acid Last Dose Date 06/03/20 Valproic Acid Last Dose Time 2100 Current Medications Medications (Trade) Dose Ordered Sig/Bang Route PRN Reason Start Time Stop Time Status Last Admin Dose Admin Acetaminophen (Tylenol) 650 mg PRN Q6HRS PRN PO MILD PAIN / TEMP > 100.3'F 06/01/20 12:15 06/01/20 12:53 DC Multi-Ingredient Ointment (Analgesic [place]) 1 lou PRN QID PRN TP MUSCLE PAIN 06/01/20 12:15 Al Hydroxide/Mg Hydroxide (Mylanta Plus Xs) 15 ml PRN AFTMEALHC PRN PO DYSPEPSIA 06/01/20 12:15 Magnesium Hydroxide (Milk Of Magnesia) 2,400 mg PRN QHS PRN PO CONSTIPATION 06/01/20 12:15 06/01/20 13:00 DC Acetaminophen (Tylenol) 650 mg PRN Q4HRS PRN PO pain or fever 06/01/20 12:45 06/03/20 10:14 Bisacodyl (Dulcolax Supp) 10 mg PRN DAILY PRN RC CONSTIPATION 06/01/20 12:45 Divalproex Sodium (Depakote) 250 mg TID PO 06/01/20 14:00 06/01/20 19:18 DC 06/01/20 14:55 Fluoxetine HCl (PROzac) 20 mg DAILY PO 06/02/20 09:00 06/04/20 09:11 Albuterol/ Ipratropium (Duoneb) 3 ml PRN Q4HRS PRN NEB SHORTNESS OF BREATH 06/01/20 12:45 Lorazepam (Ativan) 2 mg TID PO 06/01/20 14:00 06/02/20 15:48 DC 06/02/20 15:04 Sodium Biphosphate/ Sodium Phosphate (Fleet Adult) 133 ml PRN DAILY PRN RC CONSTIPATION 06/01/20 12:45 Olanzapine (ZyPREXA) 5 mg DAILY PO 06/02/20 09:00 06/03/20 17:52 DC 06/03/20 08:05 Guaifenesin (Robitussin Dm) 10 ml PRN Q4HRS PRN PO COUGH 06/01/20 13:00 Non-Formulary Medication (Magnesium Hydroxide (Milk Of Magnesia)) 2,400 mg PRN DAILY PRN PO CONSTIPATION 06/01/20 12:45 06/01/20 13:00 DC Pantoprazole Sodium (Protonix) 40 mg DAILYAC PO 06/02/20 07:30 06/04/20 09:11 Risperidone (RisperDAL) 1 mg BID PO 06/01/20 21:00 06/04/20 12:25 DC 06/03/20 20:08 Quetiapine Fumarate (SEROquel) 50 mg DAILY PO 06/02/20 09:00 06/04/20 09:12 Quetiapine Fumarate (SEROquel) 300 mg HS PO 06/01/20 21:00 06/04/20 20:04 Magnesium Hydroxide (Milk Of Magnesia) 2,400 mg PRN BID PRN PO CONSTIPATION 06/01/20 13:15 Divalproex Sodium (Depakote Er) 1,000 mg QHS PO 06/01/20 21:00 06/04/20 20:05 Lorazepam (Ativan) 2 mg 0800 PO 06/03/20 08:00 06/07/20 21:00 06/04/20 09:14 Lorazepam (Ativan) 1 mg 0800 PO 06/08/20 08:00 06/10/20 21:00 Lorazepam (Ativan) 3 mg 2100 PO 06/02/20 21:00 06/04/20 23:59 06/04/20 20:04 Lorazepam (Ativan) 2 mg 2100 PO 06/05/20 21:00 06/10/20 23:59 Olanzapine (ZyPREXA ZYDIS) 2.5 mg PRN Q2HRS PRN PO PSYCHOSIS 06/02/20 16:57 06/03/20 14:50 Lorazepam (Ativan) 1 mg 1X ONCE PO 06/03/20 18:00 06/03/20 18:12 DC Paliperidone (Invega) 6 mg DAILY PO 06/04/20 09:00 06/04/20 09:11 Current Medications Medications (Trade) Dose Ordered Sig/Bang Route PRN Reason Start Time Stop Time Status Last Admin Dose Admin Paliperidone (Invega) 6 mg DAILY PO 06/04/20 09:00 06/04/20 09:11 I have reviewed the current psychotropics carefully including drug interactions. Risk benefit ratio favors no change other than as noted in my dictated progress note. Diagnosis: Problems: (1) Schizoaffective disorder, bipolar type (2) Anxiety disorder, unspecified (3) Impulse disorder, unspecified (4) Bipolar disorder, curr episode mixed, severe, with psychotic features CRISELDA GARCIA MD Jun 04, 2020 21:05
--- NOTE | 2020-06-04 23:54 | NUR ---
Pt more anxious this evening, wandering around the unit looking for Wilder. Pt asked to call her sister and stated that her sister was coming here after 9pm. Pt compliant with whole medications and was up and down from bed multiple times before calming down and going to sleep.
[2020-06-05 05:35] VITALS: BP 116/79
--- NOTE | 2020-06-05 08:17 | PDOC ---
Exam Note: Cristiano Note: This note is a late entry for 06/04/2020 covers elements not covered in my initial note. Subjective: The patient was reviewed on telehealth rounds in the morning of 06/04/2020 for a treatment team meeting with Yary Barragan, Yoselin Garcia and Anita (social media assistant), Ariela, activity therapy and Nancy BAXTER. Discussed with nursing staff, reviewed the chart. The patient slept 8-3/4 hours previous night. Appetite is100%. She has been quite obsessive about wanting to telephone, Chanelle and Yulissa regarding Wilder. She remains somewhat obsessive with racing thoughts part of her bipolar disorder. Valproic acid level is therapeutic at 71. We made multiple changes in her psychotropics. Initially Invega 3 mg a day at admission was auto-substituted to Risperdal. She continued on Depakote, Prozac, scheduled Zyprexa, Seroquel and Ativan has been gradually tapered and Zyprexa was added p.r.n. However given her ongoing manic bipolar symptoms, we are going ahead and changing her psychotropics Risperdal back to Invega increasing to 6 mg a day. Risperdal is being discontinued since she has been sedated and having drooling while on the Risperdal. Review of Systems: Ambulation impaired. No CV, , pulmonary, eye, ENT system symptoms on review. Mental Status Exam: The patient is reasonably oriented. Speech is coherent. Abstraction is fair. Computation is impaired. Language function is intact. Mood and affect still somewhat anxious and labile. She remains hypomanic but generally improved. Laboratory Data: Reviewed. Impression: Schizoaffective disorder bipolar type, mixed with psychotic features. Anxiety disorder unspecified. Impulse control disorder unspecified. Plan: Increase Invega to 6 mg a day. Stop the Risperdal. Zyprexa has been previously stopped. Continue Seroquel for now. Depakote will continue unchanged, level therapeutic. Adjust further as clinically indicated. Assessment: Vital Signs/I&O: Vital Signs Date Time Temp Pulse Resp B/P (MAP) Pulse Ox O2 Delivery O2 Flow Rate FiO2 06/05/20 05:35 97.6 102 18 116/79 (91) 92 06/01/20 15:00 Room Air I & O 06/04/20 06/04/20 06/05/20 15:00 23:00 07:00 Intake Total 960 ml 480 ml Balance 960 ml 480 ml Current Medications: Meds: Current Medications Medications (Trade) Dose Ordered Sig/Bang Route PRN Reason Start Time Stop Time Status Last Admin Dose Admin Acetaminophen (Tylenol) 650 mg PRN Q6HRS PRN PO MILD PAIN / TEMP > 100.3'F 06/01/20 12:15 06/01/20 12:53 DC Multi-Ingredient Ointment (Analgesic [place]) 1 lou PRN QID PRN TP MUSCLE PAIN 06/01/20 12:15 Al Hydroxide/Mg Hydroxide (Mylanta Plus Xs) 15 ml PRN AFTMEALHC PRN PO DYSPEPSIA 06/01/20 12:15 Magnesium Hydroxide (Milk Of Magnesia) 2,400 mg PRN QHS PRN PO CONSTIPATION 06/01/20 12:15 06/01/20 13:00 DC Acetaminophen (Tylenol) 650 mg PRN Q4HRS PRN PO pain or fever 06/01/20 12:45 06/03/20 10:14 Bisacodyl (Dulcolax Supp) 10 mg PRN DAILY PRN RC CONSTIPATION, 2ND CHOICE 06/01/20 12:45 Divalproex Sodium (Depakote) 250 mg TID PO 06/01/20 14:00 06/01/20 19:18 DC 06/01/20 14:55 Fluoxetine HCl (PROzac) 20 mg DAILY PO 06/02/20 09:00 06/04/20 09:11 Albuterol/ Ipratropium (Duoneb) 3 ml PRN Q4HRS PRN NEB SHORTNESS OF BREATH 06/01/20 12:45 Lorazepam (Ativan) 2 mg TID PO 06/01/20 14:00 06/02/20 15:48 DC 06/02/20 15:04 Sodium Biphosphate/ Sodium Phosphate (Fleet Adult) 133 ml PRN DAILY PRN RC CONSTIPATION, 3RD CHOICE 06/01/20 12:45 Olanzapine (ZyPREXA) 5 mg DAILY PO 06/02/20 09:00 06/03/20 17:52 DC 06/03/20 08:05 Guaifenesin (Robitussin Dm) 10 ml PRN Q4HRS PRN PO COUGH 06/01/20 13:00 Non-Formulary Medication (Magnesium Hydroxide (Milk Of Magnesia)) 2,400 mg PRN DAILY PRN PO CONSTIPATION 06/01/20 12:45 06/01/20 13:00 DC Pantoprazole Sodium (Protonix) 40 mg DAILYAC PO 06/02/20 07:30 06/04/20 09:11 Risperidone (RisperDAL) 1 mg BID PO 06/01/20 21:00 06/04/20 12:25 DC 06/03/20 20:08 Quetiapine Fumarate (SEROquel) 50 mg DAILY PO 06/02/20 09:00 06/04/20 09:12 Quetiapine Fumarate (SEROquel) 300 mg HS PO 06/01/20 21:00 06/04/20 20:04 Magnesium Hydroxide (Milk Of Magnesia) 2,400 mg PRN BID PRN PO CONSTIPATION, 1ST CHOICE 06/01/20 13:15 Divalproex Sodium (Depakote Er) 1,000 mg QHS PO 06/01/20 21:00 06/04/20 20:05 Lorazepam (Ativan) 2 mg 0800 PO 06/03/20 08:00 06/07/20 21:00 06/04/20 09:14 Lorazepam (Ativan) 1 mg 0800 PO 06/08/20 08:00 06/10/20 21:00 Lorazepam (Ativan) 3 mg 2100 PO 06/02/20 21:00 06/04/20 23:59 DC 06/04/20 20:04 Lorazepam (Ativan) 2 mg 2100 PO 06/05/20 21:00 06/10/20 23:59 Olanzapine (ZyPREXA ZYDIS) 2.5 mg PRN Q2HRS PRN PO PSYCHOSIS 06/02/20 16:57 06/03/20 14:50 Lorazepam (Ativan) 1 mg 1X ONCE PO 06/03/20 18:00 06/03/20 18:12 DC Paliperidone (Invega) 6 mg DAILY PO 06/04/20 09:00 06/04/20 09:11 Current Medications Medications (Trade) Dose Ordered Sig/Bang Route PRN Reason Start Time Stop Time Status Last Admin Dose Admin Paliperidone (Invega) 6 mg DAILY PO 06/04/20 09:00 06/04/20 09:11 I have reviewed the current psychotropics carefully including drug interactions. Risk benefit ratio favors no change other than as noted in my dictated progress note. Diagnosis: Problems: (1) Schizoaffective disorder, bipolar type (2) Anxiety disorder, unspecified (3) Impulse disorder, unspecified (4) Bipolar disorder, curr episode mixed, severe, with psychotic features CRISELDA GARCIA MD Jun 05, 2020 08:17
[2020-06-05] MEDS: FLUoxetine HCL 20 MG CAPSULE PO SCH (08:41)
[2020-06-05] MEDS: QUEtiapine 50 MG TABLET. PO SCH (08:41)
[2020-06-05] MEDS: PANTOPRAZOLE 40 MG TABLET. PO SCH (08:41)
[2020-06-05] MEDS: PALIPERIDONE 6 MG TAB.ER.24. PO SCH (08:44)
[2020-06-05] MEDS: LORazepam 1 MG TABLET PO SCH ×2 (08:44→19:57)
[2020-06-05] MEDS: ACETAMINOPHEN 325 MG TABLET PO PRN ×2 (09:05→19:58)
--- NOTE | 2020-06-05 09:44 | NUR ---
Insurance update was submitted to [employer] at for continued stay on [facility].
--- NOTE | 2020-06-05 10:12 | NUR ---
SW attempted to contact CORETTA Beltran at [facility], and ended up leaving a message asking for her to contact CORETTA when possible.
--- NOTE | 2020-06-05 10:32 | NUR ---
CORETTA received a call from CORETTA Flowers at [facility], in which CORETTA informed her that pt insurance has requested a second update; although a review was completed yesterday. CORETTA wanted to give Kristie a heads up as pt may be discharging within the next few days in the event that insurance denies pt continued stay.
--- NOTE | 2020-06-05 11:03 | NUR ---
Patient found on floor in her room calling out 'Help'. Patient in the middle of her room, walker is near the entrance; patient states she fell walking from the bathroom. Patient is flat affect and slow to answer questions. She states she was using her walker and fell on her left hip and shoulder. Patient's vital signs stable with elevated heart drcv=117. Patient complains of pain and tenderness in left hip and shoulder, no complaints of head pain. MD notified, new orders received.
--- NOTE | 2020-06-05 12:38 | RAD ---
AP Internal and external rotation views with Y-View of the left shoulder were performed. Indication: Pain after fall Comparison: None. No fracture, glenohumeral or AC joint subluxation, or significant degenerative changes are seen. The subacromial space is maintained. Impression: 1. Unremarkable exam of the left shoulder. Electronically signed by: Manpreet Fontana MD (06/05/2020 12:36 PM) [id number]
--- NOTE | 2020-06-05 12:39 | RAD ---
AP and frog-leg lateral views of the left hip were obtained. History: Pain after fall Comparison: none. No fracture is seen about the left proximal femur acetabulum. The femoral head is located in the caitlin tabulum. No significant degenerative changes are seen. Impression: 1. Unremarkable plain film exam of the left hip. Electronically signed by: Manpreet Fontana MD (06/05/2020 12:36 PM) [id number]
--- NOTE | 2020-06-05 15:30 | NUR ---
Patient is increasingly agitated, delusional, and obsessing over using the phone. Patient states that her neice is in trouble and she has to call her right now. Attempts to redirect her have been unsuccessful, prn medication provided per eMAR, will continue to monitor.
[2020-06-05 15:36] VITALS: BP 141/96
[2020-06-05] MEDS: DIVALPROEX ER 500 MG TAB.ER.24H PO SCH (19:57)
[2020-06-05] MEDS: QUEtiapine 100 MG TABLET. PO SCH (19:58)
--- NOTE | 2020-06-05 21:08 | PDOC ---
Exam Note: Cristiano Note: Please also refer to the separate dictated note~for this date of service dictated separately.~Patient seen individually. Discussed the patient with Nursing staff reviewed the chart.~Reviewed interim history and current functioning. Reviewed vital signs,~Labs/ Radiology~and current medications noted below. Continue current treatment with the changes noted in the dictated addendum note Assessment: Vital Signs/I&O: Vital Signs Date Time Temp Pulse Resp B/P (MAP) Pulse Ox O2 Delivery O2 Flow Rate FiO2 06/05/20 15:36 97.6 92 20 141/96 (111) 96 Room Air I & O 06/04/20 06/04/20 06/05/20 15:00 23:00 07:00 Intake Total 960 ml 480 ml Balance 960 ml 480 ml Current Medications: Meds: Current Medications Medications (Trade) Dose Ordered Sig/Bang Route PRN Reason Start Time Stop Time Status Last Admin Dose Admin Acetaminophen (Tylenol) 650 mg PRN Q6HRS PRN PO MILD PAIN / TEMP > 100.3'F 06/01/20 12:15 06/01/20 12:53 DC Multi-Ingredient Ointment (Analgesic [place]) 1 lou PRN QID PRN TP MUSCLE PAIN 06/01/20 12:15 Al Hydroxide/Mg Hydroxide (Mylanta Plus Xs) 15 ml PRN AFTMEALHC PRN PO DYSPEPSIA 06/01/20 12:15 Magnesium Hydroxide (Milk Of Magnesia) 2,400 mg PRN QHS PRN PO CONSTIPATION 06/01/20 12:15 06/01/20 13:00 DC Acetaminophen (Tylenol) 650 mg PRN Q4HRS PRN PO pain or fever 06/01/20 12:45 06/05/20 19:58 Bisacodyl (Dulcolax Supp) 10 mg PRN DAILY PRN RC CONSTIPATION, 2ND CHOICE 06/01/20 12:45 Divalproex Sodium (Depakote) 250 mg TID PO 06/01/20 14:00 06/01/20 19:18 DC 06/01/20 14:55 Fluoxetine HCl (PROzac) 20 mg DAILY PO 06/02/20 09:00 06/05/20 08:41 Albuterol/ Ipratropium (Duoneb) 3 ml PRN Q4HRS PRN NEB SHORTNESS OF BREATH 06/01/20 12:45 Lorazepam (Ativan) 2 mg TID PO 06/01/20 14:00 06/02/20 15:48 DC 06/02/20 15:04 Sodium Biphosphate/ Sodium Phosphate (Fleet Adult) 133 ml PRN DAILY PRN RC CONSTIPATION, 3RD CHOICE 06/01/20 12:45 Olanzapine (ZyPREXA) 5 mg DAILY PO 06/02/20 09:00 06/03/20 17:52 DC 06/03/20 08:05 Guaifenesin (Robitussin Dm) 10 ml PRN Q4HRS PRN PO COUGH 06/01/20 13:00 Non-Formulary Medication (Magnesium Hydroxide (Milk Of Magnesia)) 2,400 mg PRN DAILY PRN PO CONSTIPATION 06/01/20 12:45 06/01/20 13:00 DC Pantoprazole Sodium (Protonix) 40 mg DAILYAC PO 06/02/20 07:30 06/05/20 08:41 Risperidone (RisperDAL) 1 mg BID PO 06/01/20 21:00 06/04/20 12:25 DC 06/03/20 20:08 Quetiapine Fumarate (SEROquel) 50 mg DAILY PO 06/02/20 09:00 06/05/20 08:41 Quetiapine Fumarate (SEROquel) 300 mg HS PO 06/01/20 21:00 06/05/20 19:58 Magnesium Hydroxide (Milk Of Magnesia) 2,400 mg PRN BID PRN PO CONSTIPATION, 1ST CHOICE 06/01/20 13:15 Divalproex Sodium (Depakote Er) 1,000 mg QHS PO 06/01/20 21:00 06/05/20 19:57 Lorazepam (Ativan) 2 mg 0800 PO 06/03/20 08:00 06/07/20 21:00 06/05/20 08:44 Lorazepam (Ativan) 1 mg 0800 PO 06/08/20 08:00 06/10/20 21:00 Lorazepam (Ativan) 3 mg 2100 PO 06/02/20 21:00 06/04/20 23:59 DC 06/04/20 20:04 Lorazepam (Ativan) 2 mg 2100 PO 06/05/20 21:00 06/10/20 23:59 06/05/20 19:57 Olanzapine (ZyPREXA ZYDIS) 2.5 mg PRN Q2HRS PRN PO PSYCHOSIS 06/02/20 16:57 06/05/20 15:02 Lorazepam (Ativan) 1 mg 1X ONCE PO 06/03/20 18:00 06/03/20 18:12 DC Paliperidone (Invega) 6 mg DAILY PO 06/04/20 09:00 06/05/20 08:44 Current Medications Medications (Trade) Dose Ordered Sig/Bang Route PRN Reason Start Time Stop Time Status Last Admin Dose Admin Lorazepam (Ativan) 2 mg 2100 PO 06/05/20 21:00 06/10/20 23:59 06/05/20 19:57 I have reviewed the current psychotropics carefully including drug interactions. Risk benefit ratio favors no change other than as noted in my dictated progress note. Diagnosis: Problems: (1) Schizoaffective disorder, bipolar type (2) Anxiety disorder, unspecified (3) Impulse disorder, unspecified (4) Bipolar disorder, curr episode mixed, severe, with psychotic features CRISELDA GARCIA MD Jun 05, 2020 21:08
--- NOTE | 2020-06-05 23:27 | NUR ---
Nursing Note Pt intrusive wants tylenol has asked twice in report for it. Complains of knee pain, cooperative with assessment and meds. Took meds but swallowed them one at a time in her mouth and had them all wet spat them out in her hand drooled down the front of her shirt. Once she swallowed she quickly rolled back over in bed and went to sleep. Very little interaction.
[2020-06-06 05:33] VITALS: BP 137/82
[2020-06-06] MEDS: LORazepam 1 MG TABLET PO SCH ×2 (07:58→19:33)
[2020-06-06] MEDS: PANTOPRAZOLE 40 MG TABLET. PO SCH (07:58)
[2020-06-06] MEDS: FLUoxetine HCL 20 MG CAPSULE PO SCH (07:58)
[2020-06-06] MEDS: QUEtiapine 50 MG TABLET. PO SCH (07:58)
[2020-06-06] MEDS: PALIPERIDONE 6 MG TAB.ER.24. PO SCH (07:59)
--- NOTE | 2020-06-06 08:07 | PDOC ---
Exam Note: Cristiano Note: This note is a late entry for 06/05/2020 covers elements not covered in my initial note. Subjective: The patient was reviewed on telehealth rounds in the evening of 06/05/2020 with Tam BAXTER. Discussed with nursing staff, reviewed the chart. The patient slept 6-1/4 hours previous night. She has been somewhat forgetful. She had a fall in the morning after she tried to ambulate without her walker. No injury noted. At times she has been depressed, somewhat crying. Review of Systems: Ambulation impaired. No CV, , pulmonary, eye system symptoms on review. Mental Status Exam: The patient is oriented to herself and situation. Speech has some latency, coherent. Often response is monosyllabic. Abstraction is fair. Computation is impaired. Language function is intact. Attention span is short. Mood and affect withdrawn. No suicidal ideation. Laboratory Data: Reviewed. Impression: Schizoaffective disorder bipolar type, mixed with psychotic features. Anxiety disorder unspecified. Impulse control disorder unspecified. Plan: Continue psychotropics from initial note. Valproic acid level is therapeutic on Depakote ER 1000 mg h.s. Maintain Invega, Prozac, Seroquel. Ativan has been tapered and Zyprexa p.r.n. Assessment: Vital Signs/I&O: Vital Signs Date Time Temp Pulse Resp B/P (MAP) Pulse Ox O2 Delivery O2 Flow Rate FiO2 06/06/20 05:33 98.4 68 20 137/82 (100) 97 06/05/20 15:36 Room Air I & O 06/05/20 06/05/20 06/06/20 14:59 22:59 06:59 Intake Total 720 ml 360 ml Balance 720 ml 360 ml Current Medications: Meds: Current Medications Medications (Trade) Dose Ordered Sig/Bang Route PRN Reason Start Time Stop Time Status Last Admin Dose Admin Acetaminophen (Tylenol) 650 mg PRN Q6HRS PRN PO MILD PAIN / TEMP > 100.3'F 06/01/20 12:15 06/01/20 12:53 DC Multi-Ingredient Ointment (Analgesic [place]) 1 lou PRN QID PRN TP MUSCLE PAIN 06/01/20 12:15 Al Hydroxide/Mg Hydroxide (Mylanta Plus Xs) 15 ml PRN AFTMEALHC PRN PO DYSPEPSIA 06/01/20 12:15 Magnesium Hydroxide (Milk Of Magnesia) 2,400 mg PRN QHS PRN PO CONSTIPATION 06/01/20 12:15 06/01/20 13:00 DC Acetaminophen (Tylenol) 650 mg PRN Q4HRS PRN PO pain or fever 06/01/20 12:45 06/05/20 19:58 Bisacodyl (Dulcolax Supp) 10 mg PRN DAILY PRN RC CONSTIPATION, 2ND CHOICE 06/01/20 12:45 Divalproex Sodium (Depakote) 250 mg TID PO 06/01/20 14:00 06/01/20 19:18 DC 06/01/20 14:55 Fluoxetine HCl (PROzac) 20 mg DAILY PO 06/02/20 09:00 06/06/20 07:58 Albuterol/ Ipratropium (Duoneb) 3 ml PRN Q4HRS PRN NEB SHORTNESS OF BREATH 06/01/20 12:45 Lorazepam (Ativan) 2 mg TID PO 06/01/20 14:00 06/02/20 15:48 DC 06/02/20 15:04 Sodium Biphosphate/ Sodium Phosphate (Fleet Adult) 133 ml PRN DAILY PRN RC CONSTIPATION, 3RD CHOICE 06/01/20 12:45 Olanzapine (ZyPREXA) 5 mg DAILY PO 06/02/20 09:00 06/03/20 17:52 DC 06/03/20 08:05 Guaifenesin (Robitussin Dm) 10 ml PRN Q4HRS PRN PO COUGH 06/01/20 13:00 Non-Formulary Medication (Magnesium Hydroxide (Milk Of Magnesia)) 2,400 mg PRN DAILY PRN PO CONSTIPATION 06/01/20 12:45 06/01/20 13:00 DC Pantoprazole Sodium (Protonix) 40 mg DAILYAC PO 06/02/20 07:30 06/06/20 07:58 Risperidone (RisperDAL) 1 mg BID PO 06/01/20 21:00 06/04/20 12:25 DC 06/03/20 20:08 Quetiapine Fumarate (SEROquel) 50 mg DAILY PO 06/02/20 09:00 06/06/20 07:58 Quetiapine Fumarate (SEROquel) 300 mg HS PO 06/01/20 21:00 06/05/20 19:58 Magnesium Hydroxide (Milk Of Magnesia) 2,400 mg PRN BID PRN PO CONSTIPATION, 1ST CHOICE 06/01/20 13:15 Divalproex Sodium (Depakote Er) 1,000 mg QHS PO 06/01/20 21:00 06/05/20 19:57 Lorazepam (Ativan) 2 mg 0800 PO 06/03/20 08:00 06/07/20 21:00 06/06/20 07:58 Lorazepam (Ativan) 1 mg 0800 PO 06/08/20 08:00 06/10/20 21:00 Lorazepam (Ativan) 3 mg 2100 PO 06/02/20 21:00 06/04/20 23:59 DC 06/04/20 20:04 Lorazepam (Ativan) 2 mg 2100 PO 06/05/20 21:00 06/10/20 23:59 06/05/20 19:57 Olanzapine (ZyPREXA ZYDIS) 2.5 mg PRN Q2HRS PRN PO PSYCHOSIS 06/02/20 16:57 06/05/20 15:02 Lorazepam (Ativan) 1 mg 1X ONCE PO 06/03/20 18:00 06/03/20 18:12 DC Paliperidone (Invega) 6 mg DAILY PO 06/04/20 09:00 06/06/20 07:59 Current Medications Medications (Trade) Dose Ordered Sig/Bang Route PRN Reason Start Time Stop Time Status Last Admin Dose Admin Lorazepam (Ativan) 2 mg 2100 PO 06/05/20 21:00 06/10/20 23:59 06/05/20 19:57 I have reviewed the current psychotropics carefully including drug interactions. Risk benefit ratio favors no change other than as noted in my dictated progress note. Diagnosis: Problems: (1) Schizoaffective disorder, bipolar type (2) Anxiety disorder, unspecified (3) Impulse disorder, unspecified (4) Bipolar disorder, curr episode mixed, severe, with psychotic features CRISELDA GARCIA MD Jun 06, 2020 08:06
[2020-06-06] MEDS: ACETAMINOPHEN 325 MG TABLET PO PRN ×2 (08:10→20:30)
[2020-06-06 15:38] VITALS: BP 142/96
--- NOTE | 2020-06-06 18:15 | NUR ---
Patient had complaints of left knee pain with tenderness to palpation. Left knee has increased edema versus right, skin is same temperature as neighboring regions, no erythema or ecchymosis. PRN medication provided per MD Joel notified during rounds and new orders recieved. Patient has generally been calm and compliant throughout the shift with occasional requests to call sister. Patient's phone use has been restricted r/t the phone calls triggering behavioral problems. Will continue to monitor and report to oncoming shift.
[2020-06-06] MEDS: DIVALPROEX ER 500 MG TAB.ER.24H PO SCH (19:31)
[2020-06-06] MEDS: QUEtiapine 100 MG TABLET. PO SCH (19:31)
--- NOTE | 2020-06-06 21:12 | PDOC ---
Exam Note: Cristiano Note: Please also refer to the separate dictated note~for this date of service dictated separately.~Patient seen individually. Discussed the patient with Nursing staff reviewed the chart.~Reviewed interim history and current functioning. Reviewed vital signs,~Labs/ Radiology~and current medications noted below. Continue current treatment with the changes noted in the dictated addendum note Assessment: Vital Signs/I&O: Vital Signs Date Time Temp Pulse Resp B/P (MAP) Pulse Ox O2 Delivery O2 Flow Rate FiO2 06/06/20 15:38 97.5 105 20 142/96 (111) 96 06/05/20 15:36 Room Air I & O 06/05/20 06/05/20 06/06/20 15:00 23:00 07:00 Intake Total 720 ml 360 ml Balance 720 ml 360 ml Current Medications: Meds: Current Medications Medications (Trade) Dose Ordered Sig/Bang Route PRN Reason Start Time Stop Time Status Last Admin Dose Admin Acetaminophen (Tylenol) 650 mg PRN Q6HRS PRN PO MILD PAIN / TEMP > 100.3'F 06/01/20 12:15 06/01/20 12:53 DC Multi-Ingredient Ointment (Analgesic [place]) 1 lou PRN QID PRN TP MUSCLE PAIN 06/01/20 12:15 Al Hydroxide/Mg Hydroxide (Mylanta Plus Xs) 15 ml PRN AFTMEALHC PRN PO DYSPEPSIA 06/01/20 12:15 Magnesium Hydroxide (Milk Of Magnesia) 2,400 mg PRN QHS PRN PO CONSTIPATION 06/01/20 12:15 06/01/20 13:00 DC Acetaminophen (Tylenol) 650 mg PRN Q4HRS PRN PO pain or fever 06/01/20 12:45 06/06/20 20:30 Bisacodyl (Dulcolax Supp) 10 mg PRN DAILY PRN RC CONSTIPATION, 2ND CHOICE 06/01/20 12:45 Divalproex Sodium (Depakote) 250 mg TID PO 06/01/20 14:00 06/01/20 19:18 DC 06/01/20 14:55 Fluoxetine HCl (PROzac) 20 mg DAILY PO 06/02/20 09:00 06/06/20 07:58 Albuterol/ Ipratropium (Duoneb) 3 ml PRN Q4HRS PRN NEB SHORTNESS OF BREATH 06/01/20 12:45 Lorazepam (Ativan) 2 mg TID PO 06/01/20 14:00 06/02/20 15:48 DC 06/02/20 15:04 Sodium Biphosphate/ Sodium Phosphate (Fleet Adult) 133 ml PRN DAILY PRN RC CONSTIPATION, 3RD CHOICE 06/01/20 12:45 Olanzapine (ZyPREXA) 5 mg DAILY PO 06/02/20 09:00 06/03/20 17:52 DC 06/03/20 08:05 Guaifenesin (Robitussin Dm) 10 ml PRN Q4HRS PRN PO COUGH 06/01/20 13:00 Non-Formulary Medication (Magnesium Hydroxide (Milk Of Magnesia)) 2,400 mg PRN DAILY PRN PO CONSTIPATION 06/01/20 12:45 06/01/20 13:00 DC Pantoprazole Sodium (Protonix) 40 mg DAILYAC PO 06/02/20 07:30 06/06/20 07:58 Risperidone (RisperDAL) 1 mg BID PO 06/01/20 21:00 06/04/20 12:25 DC 06/03/20 20:08 Quetiapine Fumarate (SEROquel) 50 mg DAILY PO 06/02/20 09:00 06/06/20 07:58 Quetiapine Fumarate (SEROquel) 300 mg HS PO 06/01/20 21:00 06/06/20 19:31 Magnesium Hydroxide (Milk Of Magnesia) 2,400 mg PRN BID PRN PO CONSTIPATION, 1ST CHOICE 06/01/20 13:15 Divalproex Sodium (Depakote Er) 1,000 mg QHS PO 06/01/20 21:00 06/06/20 19:31 Lorazepam (Ativan) 2 mg 0800 PO 06/03/20 08:00 06/07/20 21:00 06/06/20 07:58 Lorazepam (Ativan) 1 mg 0800 PO 06/08/20 08:00 06/10/20 21:00 Lorazepam (Ativan) 3 mg 2100 PO 06/02/20 21:00 06/04/20 23:59 DC 06/04/20 20:04 Lorazepam (Ativan) 2 mg 2100 PO 06/05/20 21:00 06/10/20 23:59 06/06/20 19:33 Olanzapine (ZyPREXA ZYDIS) 2.5 mg PRN Q2HRS PRN PO PSYCHOSIS 06/02/20 16:57 06/05/20 15:02 Lorazepam (Ativan) 1 mg 1X ONCE PO 06/03/20 18:00 06/03/20 18:12 DC Paliperidone (Invega) 6 mg DAILY PO 06/04/20 09:00 06/06/20 07:59 I have reviewed the current psychotropics carefully including drug interactions. Risk benefit ratio favors no change other than as noted in my dictated progress note. Diagnosis: Problems: (1) Schizoaffective disorder, bipolar type (2) Anxiety disorder, unspecified (3) Impulse disorder, unspecified (4) Bipolar disorder, curr episode mixed, severe, with psychotic features CRISELDA GARCIA MD Jun 06, 2020 21:12
--- NOTE | 2020-06-06 23:13 | RAD ---
EXAM: 3 views left knee DATE: 06/06/2020 5:43 PM INDICATION: Reason: pain with edema and instability / Spl. Instructions: / History: COMPARISON: No Prior FINDINGS: IM nail fixation proximal tibia partially profiled. Small left knee joint effusion. No acute fracture or dislocation. Mild lateral compartment joint space narrowing. Small tricompartmental osteophytes a re seen. Prepatellar soft tissue swelling. Subcutaneous ventral density overlying the lateral femoral soft tissues. IMPRESSION: 1. No evidence of acute fracture or dislocation. 2. Small left knee joint effusion. 3. Prepatellar soft tissue swelling. 4. Mild left knee joint osteoarthritis. Electronically signed by: Lavon Martínez MD (06/06/2020 11:10 PM) [facility]
--- NOTE | 2020-06-06 23:45 | NUR ---
Nursing Note Pt in room, pleasant calm and cooperative. Flat affect takes pills one at a time, has some psychomotor slowing, slow to respond verbally.
[2020-06-07 06:09] VITALS: BP 120/77
[2020-06-07] MEDS: PANTOPRAZOLE 40 MG TABLET. PO SCH (08:09)
[2020-06-07] MEDS: LORazepam 1 MG TABLET PO SCH ×2 (08:09→20:04)
[2020-06-07] MEDS: PALIPERIDONE 6 MG TAB.ER.24. PO SCH (08:10)
[2020-06-07] MEDS: FLUoxetine HCL 20 MG CAPSULE PO SCH (08:10)
[2020-06-07] MEDS: QUEtiapine 50 MG TABLET. PO SCH (08:10)
--- NOTE | 2020-06-07 08:11 | PDOC ---
Exam Note: Cristiano Note: This note is a late entry for 06/06/2020 covers elements not covered in my initial note. Subjective: The patient was reviewed on telehealth rounds in the evening of 06/06/2020 with Tam BAXTER. Discussed with nursing staff, reviewed the chart. The patient slept 7-1/2 hours previous night. She has been less obsessive about calling her sister. Review of Systems: Ambulation impaired. No CV, , pulmonary, eye, ENT system symptoms on review. Mental Status Exam: The patient is well oriented. Speech has some latency, coherent. Abstraction is fair. Computation is impaired. Language function is intact. Attention span is short. Mood and affect somewhat withdrawn. Laboratory Data: Reviewed. Impression: Schizoaffective disorder bipolar type, mixed with psychotic features. Anxiety disorder unspecified. Impulse control disorder unspecified. Plan: Continue psychotropics from initial note. Maintain Depakote, level therapeutic, Prozac, Invega, may need to increase. Continue Seroquel along with Zyprexa p.r.n. Assessment: Vital Signs/I&O: Vital Signs Date Time Temp Pulse Resp B/P (MAP) Pulse Ox O2 Delivery O2 Flow Rate FiO2 06/07/20 06:09 97.2 84 16 120/77 (91) 94 Room Air I & O 06/06/20 06/06/20 06/07/20 15:00 23:00 07:00 Intake Total 560 ml 320 ml Balance 560 ml 320 ml Current Medications: Meds: Current Medications Medications (Trade) Dose Ordered Sig/Bang Route PRN Reason Start Time Stop Time Status Last Admin Dose Admin Acetaminophen (Tylenol) 650 mg PRN Q6HRS PRN PO MILD PAIN / TEMP > 100.3'F 06/01/20 12:15 06/01/20 12:53 DC Multi-Ingredient Ointment (Analgesic [place]) 1 lou PRN QID PRN TP MUSCLE PAIN 06/01/20 12:15 Al Hydroxide/Mg Hydroxide (Mylanta Plus Xs) 15 ml PRN AFTMEALHC PRN PO DYSPEPSIA 06/01/20 12:15 Magnesium Hydroxide (Milk Of Magnesia) 2,400 mg PRN QHS PRN PO CONSTIPATION 06/01/20 12:15 06/01/20 13:00 DC Acetaminophen (Tylenol) 650 mg PRN Q4HRS PRN PO pain or fever 06/01/20 12:45 06/06/20 20:30 Bisacodyl (Dulcolax Supp) 10 mg PRN DAILY PRN RC CONSTIPATION, 2ND CHOICE 06/01/20 12:45 Divalproex Sodium (Depakote) 250 mg TID PO 06/01/20 14:00 06/01/20 19:18 DC 06/01/20 14:55 Fluoxetine HCl (PROzac) 20 mg DAILY PO 06/02/20 09:00 06/06/20 07:58 Albuterol/ Ipratropium (Duoneb) 3 ml PRN Q4HRS PRN NEB SHORTNESS OF BREATH 06/01/20 12:45 Lorazepam (Ativan) 2 mg TID PO 06/01/20 14:00 06/02/20 15:48 DC 06/02/20 15:04 Sodium Biphosphate/ Sodium Phosphate (Fleet Adult) 133 ml PRN DAILY PRN RC CONSTIPATION, 3RD CHOICE 06/01/20 12:45 Olanzapine (ZyPREXA) 5 mg DAILY PO 06/02/20 09:00 06/03/20 17:52 DC 06/03/20 08:05 Guaifenesin (Robitussin Dm) 10 ml PRN Q4HRS PRN PO COUGH 06/01/20 13:00 Non-Formulary Medication (Magnesium Hydroxide (Milk Of Magnesia)) 2,400 mg PRN DAILY PRN PO CONSTIPATION 06/01/20 12:45 06/01/20 13:00 DC Pantoprazole Sodium (Protonix) 40 mg DAILYAC PO 06/02/20 07:30 06/06/20 07:58 Risperidone (RisperDAL) 1 mg BID PO 06/01/20 21:00 06/04/20 12:25 DC 06/03/20 20:08 Quetiapine Fumarate (SEROquel) 50 mg DAILY PO 06/02/20 09:00 06/06/20 07:58 Quetiapine Fumarate (SEROquel) 300 mg HS PO 06/01/20 21:00 06/06/20 19:31 Magnesium Hydroxide (Milk Of Magnesia) 2,400 mg PRN BID PRN PO CONSTIPATION, 1ST CHOICE 06/01/20 13:15 Divalproex Sodium (Depakote Er) 1,000 mg QHS PO 06/01/20 21:00 06/06/20 19:31 Lorazepam (Ativan) 2 mg 0800 PO 06/03/20 08:00 06/07/20 21:00 06/06/20 07:58 Lorazepam (Ativan) 1 mg 0800 PO 06/08/20 08:00 06/10/20 21:00 Lorazepam (Ativan) 3 mg 2100 PO 06/02/20 21:00 06/04/20 23:59 DC 06/04/20 20:04 Lorazepam (Ativan) 2 mg 2100 PO 06/05/20 21:00 06/10/20 23:59 06/06/20 19:33 Olanzapine (ZyPREXA ZYDIS) 2.5 mg PRN Q2HRS PRN PO PSYCHOSIS 06/02/20 16:57 06/05/20 15:02 Lorazepam (Ativan) 1 mg 1X ONCE PO 06/03/20 18:00 06/03/20 18:12 DC Paliperidone (Invega) 6 mg DAILY PO 06/04/20 09:00 06/06/20 07:59 I have reviewed the current psychotropics carefully including drug interactions. Risk benefit ratio favors no change other than as noted in my dictated progress note. Diagnosis: Problems: (1) Schizoaffective disorder, bipolar type (2) Anxiety disorder, unspecified (3) Impulse disorder, unspecified (4) Bipolar disorder, curr episode mixed, severe, with psychotic features CRISELDA GARCIA MD Jun 07, 2020 08:11
[2020-06-07 15:37] VITALS: BP 134/87
--- NOTE | 2020-06-07 17:35 | NUR ---
Patient has been calm, slow, disorganized, compliant, and pleasantly confused this shift. Patient was less obsessed with calling her family this afternoon and more redirectable. No complaints of pain today; based on most recent knee x-ray MD recommends follow up with orthopedic surgeon after discharge; SW informed. Will continue to monitor and report to oncoming shift.
--- NOTE | 2020-06-07 17:55 | NUR ---
Patient found on floor in room. 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 Patient has a bump on the right side of her head. MD notified, new orders received.
--- NOTE | 2020-06-07 18:36 | RAD ---
CT HEAD/BRAIN WO History: Reason: Fall / Spl. Instructions: / History: . Pain Comparison: May 04, 2019 Technique: Noncontrast CT imaging was performed of the head. Exposure: One or more of the following individualized dose reduction techniques were utilized for thi s examination: 1. Automated exposure control 2. Adjustment of the mA and/or kV according to patient size 3. Use of iterative reconstruction technique. Findings: No intracranial hemorrhage. No mass effect. No hydrocephalus. Mild brain parenchymal volume loss. Mild foci of decreased attenuation within the hemispheric white m atter, most often due to chronic microvascular ischemia. Mildly prominent lateral and third ventricle s, likely due to central brain parenchymal volume loss, unchanged. Right lateral scalp soft tissue swelling. Suboccipital right scalp subcutaneous cystic lesion measures 1.2 x 1.4 cm, may represent epidermal in clusion cyst. Imaged orbits are unremarkable. Imaged paranasal sinuses and mastoid air cells are clear. No acute ca lvarial fracture. Impression: 1. No acute intracranial abnormality. 2. Right lateral scalp soft tissue swelling. Electronically signed by: Michael Barnes DO (06/07/2020 6:34 PM) [facility]
[2020-06-07] MEDS: QUEtiapine 100 MG TABLET. PO SCH (20:03)
[2020-06-07] MEDS: DIVALPROEX ER 500 MG TAB.ER.24H PO SCH (20:04)
--- NOTE | 2020-06-07 21:03 | PDOC ---
Exam Note: Cristiano Note: Please also refer to the separate dictated note~for this date of service dictated separately.~Patient seen individually. Discussed the patient with Nursing staff reviewed the chart.~Reviewed interim history and current functioning. Reviewed vital signs,~Labs/ Radiology~and current medications noted below. Continue current treatment with the changes noted in the dictated addendum note Assessment: Vital Signs/I&O: Vital Signs Date Time Temp Pulse Resp B/P (MAP) Pulse Ox O2 Delivery O2 Flow Rate FiO2 06/07/20 15:37 97.7 91 20 134/87 (103) 96 06/07/20 06:09 Room Air I & O 06/06/20 06/06/20 06/07/20 15:00 23:00 07:00 Intake Total 560 ml 320 ml Balance 560 ml 320 ml Current Medications: Meds: Current Medications Medications (Trade) Dose Ordered Sig/Bang Route PRN Reason Start Time Stop Time Status Last Admin Dose Admin Acetaminophen (Tylenol) 650 mg PRN Q6HRS PRN PO MILD PAIN / TEMP > 100.3'F 06/01/20 12:15 06/01/20 12:53 DC Multi-Ingredient Ointment (Analgesic [place]) 1 lou PRN QID PRN TP MUSCLE PAIN 06/01/20 12:15 Al Hydroxide/Mg Hydroxide (Mylanta Plus Xs) 15 ml PRN AFTMEALHC PRN PO DYSPEPSIA 06/01/20 12:15 Magnesium Hydroxide (Milk Of Magnesia) 2,400 mg PRN QHS PRN PO CONSTIPATION 06/01/20 12:15 06/01/20 13:00 DC Acetaminophen (Tylenol) 650 mg PRN Q4HRS PRN PO pain or fever 06/01/20 12:45 06/06/20 20:30 Bisacodyl (Dulcolax Supp) 10 mg PRN DAILY PRN RC CONSTIPATION, 2ND CHOICE 06/01/20 12:45 Divalproex Sodium (Depakote) 250 mg TID PO 06/01/20 14:00 06/01/20 19:18 DC 06/01/20 14:55 Fluoxetine HCl (PROzac) 20 mg DAILY PO 06/02/20 09:00 06/07/20 08:10 Albuterol/ Ipratropium (Duoneb) 3 ml PRN Q4HRS PRN NEB SHORTNESS OF BREATH 06/01/20 12:45 Lorazepam (Ativan) 2 mg TID PO 06/01/20 14:00 06/02/20 15:48 DC 06/02/20 15:04 Sodium Biphosphate/ Sodium Phosphate (Fleet Adult) 133 ml PRN DAILY PRN RC CONSTIPATION, 3RD CHOICE 06/01/20 12:45 Olanzapine (ZyPREXA) 5 mg DAILY PO 06/02/20 09:00 06/03/20 17:52 DC 06/03/20 08:05 Guaifenesin (Robitussin Dm) 10 ml PRN Q4HRS PRN PO COUGH 06/01/20 13:00 Non-Formulary Medication (Magnesium Hydroxide (Milk Of Magnesia)) 2,400 mg PRN DAILY PRN PO CONSTIPATION 06/01/20 12:45 06/01/20 13:00 DC Pantoprazole Sodium (Protonix) 40 mg DAILYAC PO 06/02/20 07:30 06/07/20 08:09 Risperidone (RisperDAL) 1 mg BID PO 06/01/20 21:00 06/04/20 12:25 DC 06/03/20 20:08 Quetiapine Fumarate (SEROquel) 50 mg DAILY PO 06/02/20 09:00 06/07/20 18:44 DC 06/07/20 08:10 Quetiapine Fumarate (SEROquel) 300 mg HS PO 06/01/20 21:00 06/07/20 20:03 Magnesium Hydroxide (Milk Of Magnesia) 2,400 mg PRN BID PRN PO CONSTIPATION, 1ST CHOICE 06/01/20 13:15 Divalproex Sodium (Depakote Er) 1,000 mg QHS PO 06/01/20 21:00 06/07/20 20:04 Lorazepam (Ativan) 2 mg 0800 PO 06/03/20 08:00 06/07/20 21:01 DC 06/07/20 08:09 Lorazepam (Ativan) 1 mg 0800 PO 06/08/20 08:00 06/10/20 21:00 Lorazepam (Ativan) 3 mg 2100 PO 06/02/20 21:00 06/04/20 23:59 DC 06/04/20 20:04 Lorazepam (Ativan) 2 mg 2100 PO 06/05/20 21:00 06/10/20 23:59 06/07/20 20:04 Olanzapine (ZyPREXA ZYDIS) 2.5 mg PRN Q2HRS PRN PO PSYCHOSIS 06/02/20 16:57 06/05/20 15:02 Lorazepam (Ativan) 1 mg 1X ONCE PO 06/03/20 18:00 06/03/20 18:12 DC Paliperidone (Invega) 6 mg DAILY PO 06/04/20 09:00 06/07/20 08:10 I have reviewed the current psychotropics carefully including drug interactions. Risk benefit ratio favors no change other than as noted in my dictated progress note. Diagnosis: Problems: (1) Schizoaffective disorder, bipolar type (2) Anxiety disorder, unspecified (3) Impulse disorder, unspecified (4) Bipolar disorder, curr episode mixed, severe, with psychotic features CRISELDA GARCIA MD Jun 07, 2020 21:03
--- NOTE | 2020-06-08 02:17 | NUR ---
Nursing Note The patient was located in her room laying in bed when approached for her assessment and medication pass. The patient took her medication whole. The patient was drowsy and was unable to answer assessment questions except name and date of .
[2020-06-08 06:20] VITALS: BP 120/83
[2020-06-08] MEDS: PALIPERIDONE 6 MG TAB.ER.24. PO SCH (08:46)
[2020-06-08] MEDS: ACETAMINOPHEN 325 MG TABLET PO PRN (08:46)
[2020-06-08] MEDS: LORazepam 1 MG TABLET PO SCH ×2 (08:46→20:15)
[2020-06-08] MEDS: FLUoxetine HCL 20 MG CAPSULE PO SCH (08:47)
[2020-06-08] MEDS: PANTOPRAZOLE 40 MG TABLET. PO SCH (08:47)
--- NOTE | 2020-06-08 08:50 | PDOC ---
Exam Note: Cristiano Note: This note is a late entry for 06/07/2020 covers elements not covered in my initial note. Subjective: The patient was reviewed on telehealth rounds in the evening of 06/07/2020 with Tam BAXTER. Discussed with nursing staff, reviewed the chart. The patient slept 8-1/4 hours previous night. She had another fall, hit her head. Dr. Nation evaluated the CT head. CT head has been ordered. We will go ahead and stop Seroquel 50 mg a.m. in case this is contributing to the falls. Otherwise the patient has been fairly cooperative on the unit, somewhat withdrawn. Review of Systems: Ambulation impaired. No CV, , pulmonary, eye, ENT system symptoms on review. Mental Status Exam: The patient is well oriented. He appears less paranoid, less labile in her mood, little sedated at times, withdrawn. Speech has some latency, coherent. Abstraction is fair. Computation is impaired. Language function is intact. Attention span is short. Mood and affect somewhat withdrawn. No suicidal or homicidal ideation. Laboratory Data: Reviewed. Impression: Schizoaffective disorder bipolar type, mixed with psychotic features. Anxiety disorder unspecified. Impulse control disorder unspecified. Plan: Continue psychotropics from initial note. Stop the morning Seroquel. Continue rest of the psychotropics. Adjust further as clinically indicated. Assessment: Vital Signs/I&O: Vital Signs Date Time Temp Pulse Resp B/P (MAP) Pulse Ox O2 Delivery O2 Flow Rate FiO2 06/08/20 06:20 98.5 102 18 120/83 (95) 94 06/07/20 06:09 Room Air I & O 06/07/20 06/07/20 06/08/20 15:00 23:00 07:00 Intake Total 720 ml 360 ml Balance 720 ml 360 ml Current Medications: Meds: Current Medications Medications (Trade) Dose Ordered Sig/Bang Route PRN Reason Start Time Stop Time Status Last Admin Dose Admin Acetaminophen (Tylenol) 650 mg PRN Q6HRS PRN PO MILD PAIN / TEMP > 100.3'F 06/01/20 12:15 06/01/20 12:53 DC Multi-Ingredient Ointment (Analgesic [place]) 1 lou PRN QID PRN TP MUSCLE PAIN 06/01/20 12:15 Al Hydroxide/Mg Hydroxide (Mylanta Plus Xs) 15 ml PRN AFTMEALHC PRN PO DYSPEPSIA 06/01/20 12:15 Magnesium Hydroxide (Milk Of Magnesia) 2,400 mg PRN QHS PRN PO CONSTIPATION 06/01/20 12:15 06/01/20 13:00 DC Acetaminophen (Tylenol) 650 mg PRN Q4HRS PRN PO pain or fever 06/01/20 12:45 06/08/20 08:46 Bisacodyl (Dulcolax Supp) 10 mg PRN DAILY PRN RC CONSTIPATION, 2ND CHOICE 06/01/20 12:45 Divalproex Sodium (Depakote) 250 mg TID PO 06/01/20 14:00 06/01/20 19:18 DC 06/01/20 14:55 Fluoxetine HCl (PROzac) 20 mg DAILY PO 06/02/20 09:00 06/08/20 08:47 Albuterol/ Ipratropium (Duoneb) 3 ml PRN Q4HRS PRN NEB SHORTNESS OF BREATH 06/01/20 12:45 Lorazepam (Ativan) 2 mg TID PO 06/01/20 14:00 06/02/20 15:48 DC 06/02/20 15:04 Sodium Biphosphate/ Sodium Phosphate (Fleet Adult) 133 ml PRN DAILY PRN RC CONSTIPATION, 3RD CHOICE 06/01/20 12:45 Olanzapine (ZyPREXA) 5 mg DAILY PO 06/02/20 09:00 06/03/20 17:52 DC 06/03/20 08:05 Guaifenesin (Robitussin Dm) 10 ml PRN Q4HRS PRN PO COUGH 06/01/20 13:00 Non-Formulary Medication (Magnesium Hydroxide (Milk Of Magnesia)) 2,400 mg PRN DAILY PRN PO CONSTIPATION 06/01/20 12:45 06/01/20 13:00 DC Pantoprazole Sodium (Protonix) 40 mg DAILYAC PO 06/02/20 07:30 06/08/20 08:47 Risperidone (RisperDAL) 1 mg BID PO 06/01/20 21:00 06/04/20 12:25 DC 06/03/20 20:08 Quetiapine Fumarate (SEROquel) 50 mg DAILY PO 06/02/20 09:00 06/07/20 18:44 DC 06/07/20 08:10 Quetiapine Fumarate (SEROquel) 300 mg HS PO 06/01/20 21:00 06/07/20 20:03 Magnesium Hydroxide (Milk Of Magnesia) 2,400 mg PRN BID PRN PO CONSTIPATION, 1ST CHOICE 06/01/20 13:15 Divalproex Sodium (Depakote Er) 1,000 mg QHS PO 06/01/20 21:00 06/07/20 20:04 Lorazepam (Ativan) 2 mg 0800 PO 06/03/20 08:00 06/07/20 21:01 DC 06/07/20 08:09 Lorazepam (Ativan) 1 mg 0800 PO 06/08/20 08:00 06/10/20 21:00 06/08/20 08:46 Lorazepam (Ativan) 3 mg 2100 PO 06/02/20 21:00 06/04/20 23:59 DC 06/04/20 20:04 Lorazepam (Ativan) 2 mg 2100 PO 06/05/20 21:00 06/10/20 23:59 06/07/20 20:04 Olanzapine (ZyPREXA ZYDIS) 2.5 mg PRN Q2HRS PRN PO PSYCHOSIS 06/02/20 16:57 06/05/20 15:02 Lorazepam (Ativan) 1 mg 1X ONCE PO 06/03/20 18:00 06/03/20 18:12 DC Paliperidone (Invega) 6 mg DAILY PO 06/04/20 09:00 06/08/20 08:46 Current Medications Medications (Trade) Dose Ordered Sig/Bang Route PRN Reason Start Time Stop Time Status Last Admin Dose Admin Lorazepam (Ativan) 1 mg 0800 PO 06/08/20 08:00 06/10/20 21:00 06/08/20 08:46 I have reviewed the current psychotropics carefully including drug interactions. Risk benefit ratio favors no change other than as noted in my dictated progress note. Diagnosis: Problems: (1) Schizoaffective disorder, bipolar type (2) Anxiety disorder, unspecified (3) Impulse disorder, unspecified (4) Bipolar disorder, curr episode mixed, severe, with psychotic features CRISELDA GARCIA MD Jun 08, 2020 08:50
[2020-06-08 15:32] VITALS: BP 146/92
--- NOTE | 2020-06-08 18:30 | NUR ---
Patient sitting in chair in room at time of assessment. Patient complains of knee pain later in the day and we rubbed cream on and gave her tylenol. She has no other complaints. Patient is alert but very confused and forgetful. She does not know how she got here or how long she has been here. [place] obsessed with calling Chanelle. Spoke to Chanelle and she can call her once a day at around 2:30pm. She works nights and that is what time is best for her. No further concerns or complaints at this time.
[2020-06-08] MEDS: DIVALPROEX ER 500 MG TAB.ER.24H PO SCH (20:15)
[2020-06-08] MEDS: QUEtiapine 100 MG TABLET. PO SCH (20:16)
--- NOTE | 2020-06-08 21:44 | PDOC ---
Exam Note: Cristiano Note: Please also refer to the separate dictated note~for this date of service dictated separately.~Patient seen individually. Discussed the patient with Nursing staff reviewed the chart.~Reviewed interim history and current functioning. Reviewed vital signs,~Labs/ Radiology~and current medications noted below. Continue current treatment with the changes noted in the dictated addendum note Assessment: Vital Signs/I&O: Vital Signs Date Time Temp Pulse Resp B/P (MAP) Pulse Ox O2 Delivery O2 Flow Rate FiO2 06/08/20 15:32 98.6 97 22 146/92 (110) 94 Room Air I & O 06/07/20 06/07/20 06/08/20 15:00 23:00 07:00 Intake Total 720 ml 360 ml Balance 720 ml 360 ml Current Medications: Meds: Current Medications Medications (Trade) Dose Ordered Sig/Bang Route PRN Reason Start Time Stop Time Status Last Admin Dose Admin Lorazepam (Ativan) 1 mg 0800 PO 06/08/20 08:00 06/10/20 21:00 06/08/20 08:46 I have reviewed the current psychotropics carefully including drug interactions. Risk benefit ratio favors no change other than as noted in my dictated progress note. Diagnosis: Problems: (1) Schizoaffective disorder, bipolar type (2) Anxiety disorder, unspecified (3) Impulse disorder, unspecified (4) Bipolar disorder, curr episode mixed, severe, with psychotic features CRISEDLA GARCIA MD Jun 08, 2020 21:44
--- NOTE | 2020-06-09 03:47 | NUR ---
Nursing Note The patient was drowsy, withdrawn and compliant this shift. The patient took her medication whole. The patient was drowsy during her assessment and was able to state her name and that she was at [facility]. The patient had several episodes of weakness when ambulating this shift and required staff help her to bed with a wheel chair.
[2020-06-09 06:40] VITALS: BP 142/87
[2020-06-09] MEDS: PALIPERIDONE 6 MG TAB.ER.24. PO SCH (08:32)
[2020-06-09] MEDS: LORazepam 1 MG TABLET PO SCH ×2 (08:32→21:12)
[2020-06-09] MEDS: PANTOPRAZOLE 40 MG TABLET. PO SCH (08:32)
[2020-06-09] MEDS: FLUoxetine HCL 20 MG CAPSULE PO SCH (08:32)
--- NOTE | 2020-06-09 14:50 | PN ---
DATE: 06/09/2020 SUBJECTIVE: The patient was seen today, met with the staff, chart reviewed and also covering for Dr. Oseguera. Staff reports some improvement with his behaviors. His appetite has improved. Denies of any falls. The patient continues to show cognitive deficits. Had no overt psychotic symptoms. OBSERVATION: VITAL SIGNS: Temperature 97.5, blood pressure 142/87, pulse 80, respirations 16, O2 sat 96%. GENERAL: Slept about 6 hours last night. MEDICATIONS: Reviewed. Currently on lorazepam 1 mg daily and 2 mg at night, Invega 6 mg daily, Prozac 20 mg daily, Depakote 1000 mg at night, and Seroquel 300 mg at night. The patient is not having any major side effects. The patient's lab reviewed, Depakote level was 71. ASSESSMENT: Schizoaffective disorder, bipolar type; anxiety disorder, unspecified. PLAN: To continue with the current treatment plan. LENGTH OF STAY: 7 days. ROSALINE MONTERO MD DR: [email or web address] JOB#: [id number] / [id number]
[2020-06-09 15:44] VITALS: BP 135/85
--- NOTE | 2020-06-09 16:27 | NUR ---
Pt has been quiet and introverted during shift. She answers questions when asked and is able to make needs known. She was present during a group activity early in the day, but fell asleep and did not participate much. She is complaint with medications and cooperative with staff. She denies HI/SI, reports mild pain in her L knee, repositioning and encouragement for rest provided. She shows no signs of hyperfixation over the whereabouts or current status of her nephew and has made no requests to make frequent phone calls to family. She is alert to self, place, and situation. Will pass onto day shift.
--- NOTE | 2020-06-09 21:08 | PDOC ---
Exam Note: Cristiano Note: This note is a late entry for 06/08/2020 covers elements not covered in my initial note. Subjective: The patient was reviewed on telehealth rounds in the evening of 06/08/2020 with Milena BAXTER. Discussed with nursing staff, reviewed the chart. The patient slept 9 hours previous night. She has had a labile mood. At times she is tearful, crying, other times happy. She is otherwise less delusional, less fixated on calling 911. Review of Systems: Ambulation impaired. No CV, , pulmonary, eye, ENT system symptoms on review. Mental Status Exam: The patient is well oriented. She has been less sedated since we have stopped the morning Seroquel. Speech has some latency, coherent. Abstraction is fair. Computation is impaired. Language function is intact. Attention span is short. Mood and affect somewhat withdrawn. No suicidal or homicidal ideation. Laboratory Data: Reviewed. Impression: Schizoaffective disorder bipolar type, mixed with psychotic features. Anxiety disorder unspecified. Impulse control disorder unspecified. Plan: Continue psychotropics from initial note. We may consider increasing Invega in due course. Assessment: Vital Signs/I&O: Vital Signs Date Time Temp Pulse Resp B/P (MAP) Pulse Ox O2 Delivery O2 Flow Rate FiO2 06/09/20 15:44 98.0 97 16 135/85 (102) 96 Room Air I & O 06/08/20 06/08/20 06/09/20 15:00 23:00 07:00 Intake Total 720 ml 360 ml Balance 720 ml 360 ml Current Medications: Meds: Current Medications Medications (Trade) Dose Ordered Sig/Bang Route PRN Reason Start Time Stop Time Status Last Admin Dose Admin Acetaminophen (Tylenol) 650 mg PRN Q6HRS PRN PO MILD PAIN / TEMP > 100.3'F 06/01/20 12:15 06/01/20 12:53 DC Multi-Ingredient Ointment (Analgesic [place]) 1 lou PRN QID PRN TP MUSCLE PAIN 06/01/20 12:15 Al Hydroxide/Mg Hydroxide (Mylanta Plus Xs) 15 ml PRN AFTMEALHC PRN PO DYSPEPSIA 06/01/20 12:15 Magnesium Hydroxide (Milk Of Magnesia) 2,400 mg PRN QHS PRN PO CONSTIPATION 06/01/20 12:15 06/01/20 13:00 DC Acetaminophen (Tylenol) 650 mg PRN Q4HRS PRN PO pain or fever 06/01/20 12:45 06/08/20 08:46 Bisacodyl (Dulcolax Supp) 10 mg PRN DAILY PRN RC CONSTIPATION, 2ND CHOICE 06/01/20 12:45 Divalproex Sodium (Depakote) 250 mg TID PO 06/01/20 14:00 06/01/20 19:18 DC 06/01/20 14:55 Fluoxetine HCl (PROzac) 20 mg DAILY PO 06/02/20 09:00 06/09/20 08:32 Albuterol/ Ipratropium (Duoneb) 3 ml PRN Q4HRS PRN NEB SHORTNESS OF BREATH 06/01/20 12:45 Lorazepam (Ativan) 2 mg TID PO 06/01/20 14:00 06/02/20 15:48 DC 06/02/20 15:04 Sodium Biphosphate/ Sodium Phosphate (Fleet Adult) 133 ml PRN DAILY PRN RC CONSTIPATION, 3RD CHOICE 06/01/20 12:45 Olanzapine (ZyPREXA) 5 mg DAILY PO 06/02/20 09:00 06/03/20 17:52 DC 06/03/20 08:05 Guaifenesin (Robitussin Dm) 10 ml PRN Q4HRS PRN PO COUGH 06/01/20 13:00 Non-Formulary Medication (Magnesium Hydroxide (Milk Of Magnesia)) 2,400 mg PRN DAILY PRN PO CONSTIPATION 06/01/20 12:45 06/01/20 13:00 DC Pantoprazole Sodium (Protonix) 40 mg DAILYAC PO 06/02/20 07:30 06/09/20 08:32 Risperidone (RisperDAL) 1 mg BID PO 06/01/20 21:00 06/04/20 12:25 DC 06/03/20 20:08 Quetiapine Fumarate (SEROquel) 50 mg DAILY PO 06/02/20 09:00 06/07/20 18:44 DC 06/07/20 08:10 Quetiapine Fumarate (SEROquel) 300 mg HS PO 06/01/20 21:00 06/08/20 20:16 Magnesium Hydroxide (Milk Of Magnesia) 2,400 mg PRN BID PRN PO CONSTIPATION, 1ST CHOICE 06/01/20 13:15 Divalproex Sodium (Depakote Er) 1,000 mg QHS PO 06/01/20 21:00 06/08/20 20:15 Lorazepam (Ativan) 2 mg 0800 PO 06/03/20 08:00 06/07/20 21:01 DC 06/07/20 08:09 Lorazepam (Ativan) 1 mg 0800 PO 06/08/20 08:00 06/10/20 21:00 06/09/20 08:32 Lorazepam (Ativan) 3 mg 2100 PO 06/02/20 21:00 06/04/20 23:59 DC 06/04/20 20:04 Lorazepam (Ativan) 2 mg 2100 PO 06/05/20 21:00 06/10/20 23:59 06/08/20 20:15 Olanzapine (ZyPREXA ZYDIS) 2.5 mg PRN Q2HRS PRN PO PSYCHOSIS 06/02/20 16:57 06/05/20 15:02 Lorazepam (Ativan) 1 mg 1X ONCE PO 06/03/20 18:00 06/03/20 18:12 DC Paliperidone (Invega) 6 mg DAILY PO 06/04/20 09:00 06/09/20 08:32 I have reviewed the current psychotropics carefully including drug interactions. Risk benefit ratio favors no change other than as noted in my dictated progress note. Diagnosis: Problems: (1) Schizoaffective disorder, bipolar type (2) Anxiety disorder, unspecified (3) Impulse disorder, unspecified (4) Bipolar disorder, curr episode mixed, severe, with psychotic features CRISELDA GARCIA MD Jun 09, 2020 21:08
[2020-06-09] MEDS: DIVALPROEX ER 500 MG TAB.ER.24H PO SCH (21:12)
[2020-06-09] MEDS: QUEtiapine 100 MG TABLET. PO SCH (21:12)
[2020-06-10] MEDS: ACETAMINOPHEN 325 MG TABLET PO PRN ×3 (03:03→19:34)
--- NOTE | 2020-06-10 06:39 | NUR ---
Pt sleeping very soundly at time of med pass. This nurse had to tap and shake her arm while calling her name repeatedly to wake her. Pt compliant and pleasant. She c/o pain in left leg. Tylenol given. Will continue to monitor.
[2020-06-10 06:51] VITALS: BP 121/83
[2020-06-10] MEDS: PANTOPRAZOLE 40 MG TABLET. PO SCH (07:38)
[2020-06-10] MEDS: LORazepam 1 MG TABLET PO SCH ×2 (07:38→19:34)
[2020-06-10] MEDS: PALIPERIDONE 6 MG TAB.ER.24. PO SCH (07:38)
[2020-06-10] MEDS: FLUoxetine HCL 20 MG CAPSULE PO SCH (07:38)
--- NOTE | 2020-06-10 10:00 | NUR ---
JOB HAND reported pt stated to JOB HAND she fell in the bathroom. Upon assessment nurse observed on right knee 2 small abrasions and a small hematoma on the top of the right side of the pts head. Pt had no other complaints of pain, no other injuries noted. VS: 111/83, 107, 18, 95%, 97.1. Dr. Zavala notified, left message for DPHERRERA, Chanelle to call. Dr. Nation paged new orders for UA, STAT CT of head, follow up with orthopedic surgeon after d/c regarding surgical history and osteoarthritis of lower extremities.
[2020-06-10 10:56] LABS: BASO % 1 % (0-3); EOS # 0.1 x10^3/uL (0.0-0.7); EOS % 2 % (0-3); HEMATOCRIT 35.4 % (36.0-47.0); HEMOGLOBIN 11.3 g/dL (12.0-15.5); LYMPH # 1.5 x10^3/uL (1.0-4.8); LYMPH % 25 % (24-48); MEAN CORPUSCULAR HEMOGLOBIN 25 pg (25-35); MEAN CORPUSCULAR HGB CONC 32 g/dL (31-37); MEAN CORPUSCULAR VOLUME 79 fL (79-100); MONO # 0.6 x10^3/uL (0.0-1.1); MONO % 10 % (0-9); NEUT # 3.9 x10^3uL (1.8-7.7); NEUT % 62 % (31-73); PLATELET COUNT 310 x10^3/uL (140-400); RED CELL DISTRIBUTION WIDTH 19.7 % (11.5-14.5); WHITE BLOOD COUNT 6.2 x10^3/uL (4.0-11.0)
--- NOTE | 2020-06-10 11:23 | RAD ---
EXAMINATION: CT HEAD/BRAIN WO (CT HEAD WITHOUT IV CONTRAST) CLINICAL HISTORY: Fall. pt reports hitting head TECHNIQUE: Serial axial images without IV contrast were obtained from the vertex to the foramen magnu m. CT Dose Reduction Employed: One or more of the following individualized dose reduction techniques wer e utilized for this examination: 1. Automated exposure control 2. Adjustment of the mA and/or kV ac cording to patient size 3. Use of iterative reconstruction technique. COMPARISON: 06/07/2020 FINDINGS: Acute Change: Persistent mild subcutaneous edema along the right lateral scalp. No evidence of an acu te contusion or other acute parenchymal process. Hemorrhage: No evidence of acute intracranial hemorrhage. Mass Lesion/Mass Effect: No evidence of intracranial mass or extraaxial fluid collection. No signific ant mass effect. Chronic Change: Scattered patchy foci of hypoattenuation in the supratentorial white matter, nonspeci fic but likely represents mild microvascular ischemia. Atherosclerotic calcification of the bilateral carotid siphons. Parenchyma: Mild to moderate generalized volume loss. Parenchyma otherwise within normal limits for a ge. Ventricles: Ventricular enlargement concordant with degree of parenchymal volume loss. Paranasal Sinuses and Skull Base: Visualized paranasal sinuses clear. No acute calvarial fracture. Re demonstration of small subcutaneous lesion in the right paramedian suboccipital soft tissues, possibl y at epididymal inclusion cyst. IMPRESSION: No evidence of acute intracranial abnormality or significant interval change. Electronically signed by: Micah Randolph DO (06/10/2020 11:20 AM) [id number]
[2020-06-10 11:25] LABS: ALBUMIN 3.2 g/dL (3.4-5.0); ALBUMIN/GLOBULIN RATIO 0.6 (1.0-1.7); CALCIUM 8.6 mg/dL (8.5-10.1); CREATININE 0.9 mg/dL (0.6-1.0); GFR 65.5; POTASSIUM 3.6 mmol/L (3.5-5.1); TOTAL BILIRUBIN 0.2 mg/dL (0.2-1.0); TOTAL PROTEIN 8.6 g/dL (6.4-8.2)
--- NOTE | 2020-06-10 12:54 | NUR ---
Pt has been quiet and introverted during shift. During morning assessment/rounds she was discovered in her bathroom attempting to self amb with walker; she verbalized a request for assistance d/t weakness and her L leg was observed to be shaking. She was assisted into a w/c where she has remained with education provided to not attempt to self amb. This education needs to be reinforced, because she reported to staff at approx 1000 that she fell while attempting to self amb to toilet and landed on her knee and hit her head. Please see Nurse America's note regarding fall. After assessment and education about not attempting to self amb she was discovered 2 more times attempting to self amb to the toilet. She has been taken for a CT scan of her head and an order for UA was obtained to r/o UTI. During rounds with Dr Ochoa this nurse discussed pt's increased weakness/drowsyness/confusion/increased falls and he gave an order to d/c Invega. She denies HI/SI. She shows no signs of hyperfixation over the whereabouts or current status of her nephew and has made no requests to make frequent phone calls to family. She is alert to self only and reorientation is provided. Will pass onto day shift.
--- NOTE | 2020-06-10 13:24 | PN ---
DATE: 06/10/2020 SUBJECTIVE: The patient was seen today, met with the staff, chart reviewed. Staff reports increased drowsiness, withdrawn, limited interaction, but medication compliant. OBSERVATION: VITAL SIGNS: Temperature 97.3, blood pressure 121/83, pulse 80, respirations 16, O2 sat 95%. GENERAL: Slept about 5 hours last night. CURRENT MEDICATIONS: The patient's medications reviewed, is currently on lorazepam 1 mg daily and 2 mg at night, Invega 6 mg daily, Prozac 20 mg daily, Depakote 1000 mg at night, and Seroquel 300 mg at night. The patient apparently seems to be sedated. Staff is concerned as she has been exhibiting decreased energy, feeling tired and drowsiness. ASSESSMENT: 1. Schizoaffective disorder, bipolar type. 2. Anxiety disorder, unspecified. PLAN: To continue with the current treatment plan. Her Invega to be discontinued. Continue to observe her behavioral change. LENGTH OF STAY: 7 days. ROSALINE MONTERO MD DR: JUNO/sekou JOB#: [id number] / [id number]
[2020-06-10 13:47] LABS: BILIRUBIN,URINE NEG (NEG); CLARITY,URINE TURBID; COLOR,URINE YELLOW; GLUCOSE,URINE NEG (NEG)
[2020-06-10 13:48] LABS: BACTERIA,URINE MANY /HPF (0-FEW); NITRITE,URINE POS (NEG); SQUAMOUS EPITHELIAL CELL,UR MANY /LPF; UROBILINOGEN,URINE 0.2 mg/dL (0.2 mg/dL); WBC,URINE >40 /HPF (0-4)
[2020-06-10 16:12] VITALS: BP 115/68
[2020-06-10] MEDS: DIVALPROEX ER 500 MG TAB.ER.24H PO SCH (19:34)
[2020-06-10] MEDS: QUEtiapine 100 MG TABLET. PO SCH (19:34)
[2020-06-10] MEDS: AMOXICILLIN 250 MG CAPSULE PO SCH (19:34)
--- NOTE | 2020-06-10 22:50 | NUR ---
Nursing Note: Pt withdrawn to room, lying in bed at shift change. Pt drowsy, slow to respond, disorganized, and confused. Pt cooperative with assessment and compliant with medications administered whole.
[2020-06-11 06:09] VITALS: BP 132/86
[2020-06-11] MEDS: FLUoxetine HCL 20 MG CAPSULE PO SCH (07:39)
[2020-06-11] MEDS: AMOXICILLIN 250 MG CAPSULE PO SCH ×3 (07:39→20:00)
[2020-06-11] MEDS: PANTOPRAZOLE 40 MG TABLET. PO SCH (07:40)
--- NOTE | 2020-06-11 10:09 | NUR ---
Pt has been up at a reasonable time and eating breakfast during assessment. She is alert to person and place only...which is an improvement from yesterday when she did not know where she was at. She denies pain or discomfort; she is currently in a w/c and has been absent of attempts to self amb/transfer. She denies SI/HI and when asked she became annoyed and stated, "Now why would I want to do something like that?!" She denies AH/VH and does not appear to be distracted to internal or external stimuli. She still appears a bit drowsy and lethargic and her eyes appear half open during assessment, but she is able to interact and converse appropriately. She is med complaint especially when told the purpose of the medications. She has a UTI and is currently on ABT (Amoxacillin 500 mg PO TID x7d days) and is absent of adverse effects thus far. She has no c/o frequency/urgency or burning with urination. Will pass onto the next shift.
--- NOTE | 2020-06-11 13:45 | NUR ---
CORETTA received a call from CORETTA Flowers at [facility], to get an update on pt. CORETTA and Kristie discussed pt frequent falls since admission while on [facility] and concerns that it was from her UTI. However, pt was on Seroquel for her first fall and was taken off that under the assumption that the Seroquel made pt too drowsy. CORETTA informed Kristie that treatment team was moved today and CORETTA would be able to update her afterwards; as well as pt insurance update is due tomorrow. CORETTA and Kristie will be in touch.
[2020-06-11 16:33] VITALS: BP 126/97
--- NOTE | 2020-06-11 16:59 | NUR ---
WEEKLY ACTIVITY THERAPY NOTE Date of Admission: 06/01 Date of AT Assessment: 06/04 Precipitating behaviors that initiated intake and admission:Pt was reported to be threatening staff members at her current facility and attempting to elope from facility. Reports about family members being injured. Reportedly calling 911 and having anxiety/panic attacks. Goal aimed: to increase socialization and engagement Initial Goal: Pt. will participate in at least one Activity Therapy group per day. Weekly progress towards goal: did not achieve, no groups on Thursday Group participation level: 5 min, 2 mod, 2 full Weekly highlights: engaged fully in Picture Puzzles on Thursday- able to solve many on her own Behaviors observed: increased confusion Thursday/ Thursday, direct prompting needed in groups, quiet, leaves to use the restroom but usually returns, unable to be redirected in group on Thursday when concerned about her family Plan: no change to goal Beneficial adaptations:
--- NOTE | 2020-06-11 18:19 | TX PLAN ---
Interdisciplinary Tx Plan Admission Information Jun 01, 2020 at 11:07 Legal Status (on Admission): Voluntary DPOA/Guardian Name: Chanelle Schwab Contact Other Contact Name: [facility] Nursing Other Contact Verified Code Status: Full Code Allergies: Coded Allergies: morphine (Verified Allergy, Unknown, Unknown, 06/01/20) Diagnoses Primary Diagnosis: Schizophrenia, Bipolar, Dementia Reasons for Admission: Delusions, Hallucinations, Poor impulse control, Other Problem in Patient's Words: She continues to exhibit behaviors and needs evaluated Additional Admission Comments: According to the intake, pt is threatened by staff, trying to leave facility, delusions of niece and nephew being hurt or left in a house, calling 911 to report danger, anxious, panic attacks, screaming out Problems Active Problems: withdrawn hyperfixed on family needy with phone use intermittent delusions Inactive Problems: medication compliant Pt Strengths/Limitations Ability for [place]: Poor Cognitive Functioning/Ability: Fair Communication Skills/Ability: Fair Financial Resources: Fair Insight/Judgement: Poor Intellectual Ability: Fair Physical Health: Poor Social Skills: Fair Stability in Family: Fair Stability in School/Work: Poor Verbal Skills: Fair Discharge Criteria Discharge Criteria: No need for close observ., Adequate arrangements @DC, Improved behavior, Improved mood/thought Preliminary Discharge Plan Preliminary DC Plan: Current Living Arrange. Special Precautions Fall Risk: Low Initial D/C Plan Pt will plan to discharge back to [facility] once stable. Identified Discharge Needs: Psychiatric follow-up Currently Utilized Resources Currently Utilized Resources/P: Primary Care Physician Referrals Community Resources: Psychiatry services Identified Problems/Hx/Goals Objectives/Short-Term Goals Short Term Goals: Dec. Hallucination/Delus, Dec. Outbursts, Medication Stabilization, Promote Coping Skill Short Term Goals in Patient's: N/A Interventions/Frequency Staff Interventions/Frequency&: Psychiatrist to assess pt at least 3x per week to monitor medication. Biometrician to assess pt at least 2x per week for discharge planning and any potential barriers or needs for care. Nursing to assess pt mood, behaviors and complete 15 minute checks daily. Encourage group participation in activities (if applicable) or 1:1 engagement as assesed by the Activity Dept. 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 Pt has not worked in over 20 years according to pt family. Education: Pt did not complete highschool; last grade attended was the 10th grade. 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 Pt is exhibiting increased drowsiness and confusion. Pt fell on Thursday (06/10) and hit her head on the toilet. Pt had a head CT which showed remarkable. Pt also had her Invega discontinued as it was possibly what's causing pt to fall. Pt took her last dose of Ativan yesterday; pt medications at this time are: Depakote ER 1000mg q HS, Prozac 20mg daily, and Seroquel 300mg HS. Pt insurance review due tomorrow and will continue to update all parties. FLORINDA CORTEZ Jun 11, 2020 18:19
[2020-06-11] MEDS: DIVALPROEX ER 500 MG TAB.ER.24H PO SCH (20:00)
[2020-06-11] MEDS: QUEtiapine 100 MG TABLET. PO SCH (20:00)
--- NOTE | 2020-06-11 21:10 | PDOC ---
Exam Note: Cristiano Note: Please also refer to the separate dictated note~for this date of service dictated separately.~Patient seen individually. Discussed the patient with Nursing staff reviewed the chart.~Reviewed interim history and current functioning. Reviewed vital signs,~Labs/ Radiology~and current medications noted below. Continue current treatment with the changes noted in the dictated addendum note Assessment: Vital Signs/I&O: Vital Signs Date Time Temp Pulse Resp B/P (MAP) Pulse Ox O2 Delivery O2 Flow Rate FiO2 06/11/20 16:33 97.4 100 20 126/97 (107) 98 06/09/20 15:44 Room Air I & O 06/10/20 06/10/20 06/11/20 15:00 23:00 07:00 Intake Total 360 ml 240 ml Balance 360 ml 240 ml Current Medications: I have reviewed the current psychotropics carefully including drug interactions. Risk benefit ratio favors no change other than as noted in my dictated progress note. Diagnosis: Problems: (1) Schizoaffective disorder, bipolar type (2) Anxiety disorder, unspecified (3) Impulse disorder, unspecified (4) Bipolar disorder, curr episode mixed, severe, with psychotic features CRISELDA GARCIA MD Jun 11, 2020 21:10
--- NOTE | 2020-06-11 22:39 | NUR ---
Nursing Note: Pt sitting up in w/c in the hallway at shift change. Pt irritable and disorganized with a flat affect. Pt resistive with HS medications stating "I'm not taking those" and "I'm not taking all those pills". Pt did eventually comply with medications administered whole with a lot of encouragement.
[2020-06-11] MEDS: ACETAMINOPHEN 325 MG TABLET PO PRN (23:33)
[2020-06-12 05:43] VITALS: BP 106/74
[2020-06-12] MEDS: AMOXICILLIN 250 MG CAPSULE PO SCH ×3 (08:07→19:56)
[2020-06-12] MEDS: PANTOPRAZOLE 40 MG TABLET. PO SCH (08:07)
[2020-06-12] MEDS: FLUoxetine HCL 20 MG CAPSULE PO SCH (08:07)
--- NOTE | 2020-06-12 09:25 | PDOC ---
Exam Note: Cristiano Note: This note is a late entry for 06/11/2020 covers elements not covered in my initial note. Subjective: The patient was reviewed on telehealth rounds in the morning of 06/11/2020 for a treatment team meeting with Yary Barragan, Yoselin Garcia and Anita (aids social worker), Ariela Koch, activity therapy and Payal RN. Discussed with nursing staff, reviewed the chart. The patient slept 5-1/4 hours previous night. Also met with her on telehealth rounds in the evening. The patient was having falls and over the weekend Dr. Ochoa covered for me. He stopped the Invega as he felt this could be contributing to the falls in combination with the Seroquel and the adjusted Depakote. Ativan has been tapered and discontinued. The patient continues to be somewhat drowsy. On review of her chart, she has had two falls on 06/05 and 06/10 and is being worked up by Dr. Nation from a medical standpoint. Review of Systems: Positive for some tiredness. Ambulation impaired. No CV, , pulmonary, eye, ENT system symptoms on review. Mental Status Exam: The patient is oriented to herself. Speech has some latency. Often response is monosyllabic. Abstraction is fair. Computation is impaired. Language function is intact. Attention span is short. Mood and affect less labile, somewhat withdrawn. No suicidal or homicidal ideation. Laboratory Data: Reviewed. Impression: Schizoaffective disorder bipolar type, mixed with psychotic features. Anxiety disorder unspecified. Impulse control disorder unspecified. UTI. Plan: Continue the patient on her current psychotropics. The patient is on Amoxil 500 mg t.i.d. for UTI. As mentioned above Invega was stopped. Make further adjustments as clinically indicated. Assessment: Vital Signs/I&O: Vital Signs Date Time Temp Pulse Resp B/P (MAP) Pulse Ox O2 Delivery O2 Flow Rate FiO2 06/12/20 05:43 97.1 88 20 106/74 (85) 93 06/09/20 15:44 Room Air I & O 06/11/20 06/11/20 06/12/20 14:59 22:59 06:59 Intake Total 600 ml 480 ml Balance 600 ml 480 ml Current Medications: Meds: Current Medications Medications (Trade) Dose Ordered Sig/Bang Route PRN Reason Start Time Stop Time Status Last Admin Dose Admin Acetaminophen (Tylenol) 650 mg PRN Q6HRS PRN PO MILD PAIN / TEMP > 100.3'F 06/01/20 12:15 06/01/20 12:53 DC Multi-Ingredient Ointment (Analgesic [place]) 1 lou PRN QID PRN TP MUSCLE PAIN 06/01/20 12:15 Al Hydroxide/Mg Hydroxide (Mylanta Plus Xs) 15 ml PRN AFTMEALHC PRN PO DYSPEPSIA 06/01/20 12:15 Magnesium Hydroxide (Milk Of Magnesia) 2,400 mg PRN QHS PRN PO CONSTIPATION 06/01/20 12:15 06/01/20 13:00 DC Acetaminophen (Tylenol) 650 mg PRN Q4HRS PRN PO pain or fever 06/01/20 12:45 06/11/20 23:33 Bisacodyl (Dulcolax Supp) 10 mg PRN DAILY PRN RC CONSTIPATION, 2ND CHOICE 06/01/20 12:45 Divalproex Sodium (Depakote) 250 mg TID PO 06/01/20 14:00 06/01/20 19:18 DC 06/01/20 14:55 Fluoxetine HCl (PROzac) 20 mg DAILY PO 06/02/20 09:00 06/12/20 08:07 Albuterol/ Ipratropium (Duoneb) 3 ml PRN Q4HRS PRN NEB SHORTNESS OF BREATH 06/01/20 12:45 Lorazepam (Ativan) 2 mg TID PO 06/01/20 14:00 06/02/20 15:48 DC 06/02/20 15:04 Sodium Biphosphate/ Sodium Phosphate (Fleet Adult) 133 ml PRN DAILY PRN RC CONSTIPATION, 3RD CHOICE 06/01/20 12:45 Olanzapine (ZyPREXA) 5 mg DAILY PO 06/02/20 09:00 06/03/20 17:52 DC 06/03/20 08:05 Guaifenesin (Robitussin Dm) 10 ml PRN Q4HRS PRN PO COUGH 06/01/20 13:00 Non-Formulary Medication (Magnesium Hydroxide (Milk Of Magnesia)) 2,400 mg PRN DAILY PRN PO CONSTIPATION 06/01/20 12:45 06/01/20 13:00 DC Pantoprazole Sodium (Protonix) 40 mg DAILYAC PO 06/02/20 07:30 06/12/20 08:07 Risperidone (RisperDAL) 1 mg BID PO 06/01/20 21:00 06/04/20 12:25 DC 06/03/20 20:08 Quetiapine Fumarate (SEROquel) 50 mg DAILY PO 06/02/20 09:00 06/07/20 18:44 DC 06/07/20 08:10 Quetiapine Fumarate (SEROquel) 300 mg HS PO 06/01/20 21:00 06/11/20 20:00 Magnesium Hydroxide (Milk Of Magnesia) 2,400 mg PRN BID PRN PO CONSTIPATION, 1ST CHOICE 06/01/20 13:15 Divalproex Sodium (Depakote Er) 1,000 mg QHS PO 06/01/20 21:00 06/11/20 20:00 Lorazepam (Ativan) 2 mg 0800 PO 06/03/20 08:00 06/07/20 21:01 DC 06/07/20 08:09 Lorazepam (Ativan) 1 mg 0800 PO 06/08/20 08:00 06/10/20 21:00 DC 06/10/20 07:38 Lorazepam (Ativan) 3 mg 2100 PO 06/02/20 21:00 06/04/20 23:59 DC 06/04/20 20:04 Lorazepam (Ativan) 2 mg 2100 PO 06/05/20 21:00 06/10/20 23:59 DC 06/10/20 19:34 Olanzapine (ZyPREXA ZYDIS) 2.5 mg PRN Q2HRS PRN PO PSYCHOSIS 06/02/20 16:57 06/10/20 03:03 Lorazepam (Ativan) 1 mg 1X ONCE PO 06/03/20 18:00 06/03/20 18:12 DC Paliperidone (Invega) 6 mg DAILY PO 06/04/20 09:00 06/10/20 13:53 DC 06/10/20 07:38 Amoxicillin (Amoxil) 500 mg [id number] PO 06/10/20 21:00 06/16/20 21:00 06/12/20 08:07 I have reviewed the current psychotropics carefully including drug interactions. Risk benefit ratio favors no change other than as noted in my dictated progress note. Diagnosis: Problems: (1) Schizoaffective disorder, bipolar type (2) Anxiety disorder, unspecified (3) Impulse disorder, unspecified (4) Bipolar disorder, curr episode mixed, severe, with psychotic features CRISELDA GARCIA MD Jun 12, 2020 09:25
--- NOTE | 2020-06-12 14:06 | NUR ---
SW sent over insurance update for pt continued stay to cover until discharge on .
--- NOTE | 2020-06-12 14:08 | NUR ---
CORETTA attempted to contact CORETTA Flowers at [facility] and left a message re: discharge on . CORETTA asked that Kristie call CORETTA back when possible.
--- NOTE | 2020-06-12 14:10 | NUR ---
SW attempted to contact pt dtrChanelle, to discuss discharge. SW ended up leaving a message asking for a returned call when possible.
--- NOTE | 2020-06-12 14:32 | NUR ---
CORETTA received a call from Chanelle, pt dtr/DPHERRERA, to go over discharge plans. CORETTA informed Chanelle that at this time discharge will be for to return to [facility]. CORETTA has submitted for final insurance approval and left a message with Kristie at [facility] to make the arrangements. According to the notes pt appears less delusional and more medication compliant. Pt does have a UTI and will take her final dose on the , which [facility] is able to monitor that for pt. Chanelle had no concerns at this time and once all details are finalized CORETTA will make sure to let Chanelle know.
--- NOTE | 2020-06-12 15:27 | NUR ---
CORETTA received approval paperwork from [facility] approving pt for the next 2 days with a discharge date of 06/14.
[2020-06-12 16:11] VITALS: BP 133/93
--- NOTE | 2020-06-12 18:21 | NUR ---
Patient has been calm, slow, disorganized, compliant, and pleasantly confused this shift. Patient complained of knee pain but denied interventions.. She was social and interactive during groups. Will continue to monitor and report to oncoming shift.
[2020-06-12] MEDS: DIVALPROEX ER 500 MG TAB.ER.24H PO SCH (19:55)
[2020-06-12] MEDS: LACTOBACILLUS RHAMNOSUS GG 1 CAPSULE. PO SCH (19:56)
[2020-06-12] MEDS: QUEtiapine 100 MG TABLET. PO SCH (19:56)
[2020-06-12] MEDS: ACETAMINOPHEN 325 MG TABLET PO PRN (19:56)
--- NOTE | 2020-06-12 21:09 | PDOC ---
Exam Note: Cristiano Note: Please also refer to the separate dictated note~for this date of service dictated separately.~Patient seen individually. Discussed the patient with Nursing staff reviewed the chart.~Reviewed interim history and current functioning. Reviewed vital signs,~Labs/ Radiology~and current medications noted below. Continue current treatment with the changes noted in the dictated addendum note Assessment: Vital Signs/I&O: Vital Signs Date Time Temp Pulse Resp B/P (MAP) Pulse Ox O2 Delivery O2 Flow Rate FiO2 06/12/20 16:11 98.4 92 18 133/93 (106) 97 06/09/20 15:44 Room Air I & O 06/11/20 06/11/20 06/12/20 14:59 22:59 06:59 Intake Total 600 ml 480 ml Balance 600 ml 480 ml Current Medications: Meds: Current Medications Medications (Trade) Dose Ordered Sig/Bang Route PRN Reason Start Time Stop Time Status Last Admin Dose Admin Acetaminophen (Tylenol) 650 mg PRN Q6HRS PRN PO MILD PAIN / TEMP > 100.3'F 06/01/20 12:15 06/01/20 12:53 DC Multi-Ingredient Ointment (Analgesic [place]) 1 lou PRN QID PRN TP MUSCLE PAIN 06/01/20 12:15 Al Hydroxide/Mg Hydroxide (Mylanta Plus Xs) 15 ml PRN AFTMEALHC PRN PO DYSPEPSIA 06/01/20 12:15 Magnesium Hydroxide (Milk Of Magnesia) 2,400 mg PRN QHS PRN PO CONSTIPATION 06/01/20 12:15 06/01/20 13:00 DC Acetaminophen (Tylenol) 650 mg PRN Q4HRS PRN PO pain or fever 06/01/20 12:45 06/12/20 19:56 Bisacodyl (Dulcolax Supp) 10 mg PRN DAILY PRN RC CONSTIPATION, 2ND CHOICE 06/01/20 12:45 Divalproex Sodium (Depakote) 250 mg TID PO 06/01/20 14:00 06/01/20 19:18 DC 06/01/20 14:55 Fluoxetine HCl (PROzac) 20 mg DAILY PO 06/02/20 09:00 06/12/20 08:07 Albuterol/ Ipratropium (Duoneb) 3 ml PRN Q4HRS PRN NEB SHORTNESS OF BREATH 06/01/20 12:45 Lorazepam (Ativan) 2 mg TID PO 06/01/20 14:00 06/02/20 15:48 DC 06/02/20 15:04 Sodium Biphosphate/ Sodium Phosphate (Fleet Adult) 133 ml PRN DAILY PRN RC CONSTIPATION, 3RD CHOICE 06/01/20 12:45 Olanzapine (ZyPREXA) 5 mg DAILY PO 06/02/20 09:00 06/03/20 17:52 DC 06/03/20 08:05 Guaifenesin (Robitussin Dm) 10 ml PRN Q4HRS PRN PO COUGH 06/01/20 13:00 Non-Formulary Medication (Magnesium Hydroxide (Milk Of Magnesia)) 2,400 mg PRN DAILY PRN PO CONSTIPATION 06/01/20 12:45 06/01/20 13:00 DC Pantoprazole Sodium (Protonix) 40 mg DAILYAC PO 06/02/20 07:30 06/12/20 08:07 Risperidone (RisperDAL) 1 mg BID PO 06/01/20 21:00 06/04/20 12:25 DC 06/03/20 20:08 Quetiapine Fumarate (SEROquel) 50 mg DAILY PO 06/02/20 09:00 06/07/20 18:44 DC 06/07/20 08:10 Quetiapine Fumarate (SEROquel) 300 mg HS PO 06/01/20 21:00 06/12/20 19:56 Magnesium Hydroxide (Milk Of Magnesia) 2,400 mg PRN BID PRN PO CONSTIPATION, 1ST CHOICE 06/01/20 13:15 Divalproex Sodium (Depakote Er) 1,000 mg QHS PO 06/01/20 21:00 06/12/20 19:55 Lorazepam (Ativan) 2 mg 0800 PO 06/03/20 08:00 06/07/20 21:01 DC 06/07/20 08:09 Lorazepam (Ativan) 1 mg 0800 PO 06/08/20 08:00 06/10/20 21:00 DC 06/10/20 07:38 Lorazepam (Ativan) 3 mg 2100 PO 06/02/20 21:00 06/04/20 23:59 DC 06/04/20 20:04 Lorazepam (Ativan) 2 mg 2100 PO 06/05/20 21:00 06/10/20 23:59 DC 06/10/20 19:34 Olanzapine (ZyPREXA ZYDIS) 2.5 mg PRN Q2HRS PRN PO PSYCHOSIS 06/02/20 16:57 06/10/20 03:03 Lorazepam (Ativan) 1 mg 1X ONCE PO 06/03/20 18:00 06/03/20 18:12 DC Paliperidone (Invega) 6 mg DAILY PO 06/04/20 09:00 06/10/20 13:53 DC 06/10/20 07:38 Amoxicillin (Amoxil) 500 mg [id number] PO 06/10/20 21:00 06/16/20 21:00 06/12/20 19:56 Lactobacillus Rhamnosus (Culturelle) 1 cap BID PO 06/12/20 21:00 06/12/20 19:56 Current Medications Medications (Trade) Dose Ordered Sig/Bang Route PRN Reason Start Time Stop Time Status Last Admin Dose Admin Lactobacillus Rhamnosus (Culturelle) 1 cap BID PO 06/12/20 21:00 06/12/20 19:56 I have reviewed the current psychotropics carefully including drug interactions. Risk benefit ratio favors no change other than as noted in my dictated progress note. Diagnosis: Problems: (1) Schizoaffective disorder, bipolar type (2) Anxiety disorder, unspecified (3) Impulse disorder, unspecified (4) Bipolar disorder, curr episode mixed, severe, with psychotic features CRISELDA GARCIA MD Jun 12, 2020 21:09
--- NOTE | 2020-06-13 02:27 | NUR ---
Nursing Note: Pt sitting up in w/c at shift change. Pt calm, pleasant, and interactive when approached. Pt cooperative with assessment and compliant with medications administered whole. PRN Tylenol administered with HS medications for c/o L knee pain.
[2020-06-13] MEDS ORDERED: AMOX500C PO (03:01)
[2020-06-13] MEDS ORDERED: DIVA500T17 PO (03:03)
[2020-06-13] MEDS ORDERED: LACT1CAP19 PO (03:04)
[2020-06-13] MEDS ORDERED: METH57CR17 TP (03:04)
[2020-06-13] MEDS ORDERED: MAG-124 PO (03:04)
[2020-06-13] MEDS ORDERED: PANT40TA6 PO (03:05)
[2020-06-13] MEDS ORDERED: OLAN5TAB7 PO (03:05)
[2020-06-13 06:37] VITALS: BP 131/83
[2020-06-13] MEDS: FLUoxetine HCL 20 MG CAPSULE PO SCH (08:40)
[2020-06-13] MEDS: AMOXICILLIN 250 MG CAPSULE PO SCH ×3 (08:40→20:39)
[2020-06-13] MEDS: LACTOBACILLUS RHAMNOSUS GG 1 CAPSULE. PO SCH ×2 (08:40→20:38)
[2020-06-13] MEDS: PANTOPRAZOLE 40 MG TABLET. PO SCH (08:40)
[2020-06-13 15:23] VITALS: BP 139/93
--- NOTE | 2020-06-13 16:39 | NUR ---
[facility] Social Work Discharge Planning Form Patient Name MERRY VARGHESE Admit Date: 01 June 2020 DISCHARGE PLAN Discharge Destination: Pt to return to [facility] Assessment: N/A Level II Assessment: N/A Transportation: Pt facility to pick pt up around 1100; may change but will confirm in the morning. Special Instructions/Notes: Please fax discharge orders, discharge medication list and discharge summary to the fax number listed below. Request to send medication list to the facility before 1300 so they can get pt medications filled. Pt does NOT qualify for therapy services as Medicaid does not pay for them. DISCHARGE TO FACILITY Facility: [facility]. Address: [address] [place] [id number] Contact Name: Kristie Stark, SW: Contact Name: Kristie Bolton, Business Services Intern in Training PCP: Matt Lane
--- NOTE | 2020-06-13 19:42 | NUR ---
Patient has been calm, slow, disorganized, compliant, and pleasantly confused this shift. Patient propelling self in wheelchair and asks for assistance when transferring. She was social and interactive during groups. Knee brace arrived this afternoon and was placed on left knee. Will continue to monitor and report to oncoming shift
[2020-06-13] MEDS: DIVALPROEX ER 500 MG TAB.ER.24H PO SCH (20:39)
[2020-06-13] MEDS: QUEtiapine 100 MG TABLET. PO SCH (20:39)
--- NOTE | 2020-06-13 21:13 | PDOC ---
Exam Note: Cristiano Note: This note is a late entry for 06/12/2020 covers elements not covered in my initial note. Subjective: The patient was reviewed on telehealth rounds in the evening of 06/12/2020 with Tam BAXTER. Discussed with nursing staff, reviewed the chart. The patient slept 5-1/4 hours previous night. The patient has been more appropriate, transferring herself, spends some time in the wheelchair, compliant with medications, disorganized but states her mood is better. Review of Systems: Ambulation impaired. No CV, , pulmonary, eye, ENT system symptoms on review. Mental Status Exam: The patient is oriented to herself. She is pleasant verbal, interactive. She states her mood is better. Speech has some latency. Often response is monosyllabic. Abstraction is fair. Computation is impaired. Language function is intact. Attention span is short. Mood and affect less labile, somewhat withdrawn. No suicidal or homicidal ideation. She has not b een aggressive or disruptive. Laboratory Data: Reviewed. Impression: Schizoaffective disorder bipolar type, mixed with psychotic features. Anxiety disorder unspecified. Impulse control disorder unspecified. Plan: No change from initial note. Assessment: Vital Signs/I&O: Vital Signs Date Time Temp Pulse Resp B/P (MAP) Pulse Ox O2 Delivery O2 Flow Rate FiO2 06/13/20 15:23 96.7 120 17 139/93 (108) 92 06/13/20 06:37 Room Air I & O 06/12/20 06/12/20 06/13/20 14:59 22:59 06:59 Intake Total 780 ml 460 ml Balance 780 ml 460 ml Labs: Laboratory Tests Test 06/13/20 15:20 SARS-CoV-2 Antigen (Rapid) Negative (NEGATIVE) Current Medications: Meds: Laboratory Tests Test 06/13/20 15:20 SARS-CoV-2 Antigen (Rapid) Negative Current Medications Medications (Trade) Dose Ordered Sig/Bang Route PRN Reason Start Time Stop Time Status Last Admin Dose Admin Acetaminophen (Tylenol) 650 mg PRN Q6HRS PRN PO MILD PAIN / TEMP > 100.3'F 06/01/20 12:15 06/01/20 12:53 DC Multi-Ingredient Ointment (Analgesic [place]) 1 lou PRN QID PRN TP MUSCLE PAIN 06/01/20 12:15 Al Hydroxide/Mg Hydroxide (Mylanta Plus Xs) 15 ml PRN AFTMEALHC PRN PO DYSPEPSIA 06/01/20 12:15 06/13/20 10:45 Magnesium Hydroxide (Milk Of Magnesia) 2,400 mg PRN QHS PRN PO CONSTIPATION 06/01/20 12:15 06/01/20 13:00 DC Acetaminophen (Tylenol) 650 mg PRN Q4HRS PRN PO pain or fever 06/01/20 12:45 06/12/20 19:56 Bisacodyl (Dulcolax Supp) 10 mg PRN DAILY PRN RC CONSTIPATION, 2ND CHOICE 06/01/20 12:45 Divalproex Sodium (Depakote) 250 mg TID PO 06/01/20 14:00 06/01/20 19:18 DC 06/01/20 14:55 Fluoxetine HCl (PROzac) 20 mg DAILY PO 06/02/20 09:00 06/13/20 08:40 Albuterol/ Ipratropium (Duoneb) 3 ml PRN Q4HRS PRN NEB SHORTNESS OF BREATH 06/01/20 12:45 Lorazepam (Ativan) 2 mg TID PO 06/01/20 14:00 06/02/20 15:48 DC 06/02/20 15:04 Sodium Biphosphate/ Sodium Phosphate (Fleet Adult) 133 ml PRN DAILY PRN RC CONSTIPATION, 3RD CHOICE 06/01/20 12:45 Olanzapine (ZyPREXA) 5 mg DAILY PO 06/02/20 09:00 06/03/20 17:52 DC 06/03/20 08:05 Guaifenesin (Robitussin Dm) 10 ml PRN Q4HRS PRN PO COUGH 06/01/20 13:00 Non-Formulary Medication (Magnesium Hydroxide (Milk Of Magnesia)) 2,400 mg PRN DAILY PRN PO CONSTIPATION 06/01/20 12:45 06/01/20 13:00 DC Pantoprazole Sodium (Protonix) 40 mg DAILYAC PO 06/02/20 07:30 06/13/20 08:40 Risperidone (RisperDAL) 1 mg BID PO 06/01/20 21:00 06/04/20 12:25 DC 06/03/20 20:08 Quetiapine Fumarate (SEROquel) 50 mg DAILY PO 06/02/20 09:00 06/07/20 18:44 DC 06/07/20 08:10 Quetiapine Fumarate (SEROquel) 300 mg HS PO 06/01/20 21:00 06/13/20 20:39 Magnesium Hydroxide (Milk Of Magnesia) 2,400 mg PRN BID PRN PO CONSTIPATION, 1ST CHOICE 06/01/20 13:15 Divalproex Sodium (Depakote Er) 1,000 mg QHS PO 06/01/20 21:00 06/13/20 20:39 Lorazepam (Ativan) 2 mg 0800 PO 06/03/20 08:00 06/07/20 21:01 DC 06/07/20 08:09 Lorazepam (Ativan) 1 mg 0800 PO 06/08/20 08:00 06/10/20 21:00 DC 06/10/20 07:38 Lorazepam (Ativan) 3 mg 2100 PO 06/02/20 21:00 06/04/20 23:59 DC 06/04/20 20:04 Lorazepam (Ativan) 2 mg 2100 PO 06/05/20 21:00 06/10/20 23:59 DC 06/10/20 19:34 Olanzapine (ZyPREXA ZYDIS) 2.5 mg PRN Q2HRS PRN PO PSYCHOSIS 06/02/20 16:57 06/10/20 03:03 Lorazepam (Ativan) 1 mg 1X ONCE PO 06/03/20 18:00 06/03/20 18:12 DC Paliperidone (Invega) 6 mg DAILY PO 06/04/20 09:00 06/10/20 13:53 DC 06/10/20 07:38 Amoxicillin (Amoxil) 500 mg [id number] PO 06/10/20 21:00 06/16/20 21:00 06/13/20 20:39 Lactobacillus Rhamnosus (Culturelle) 1 cap BID PO 06/12/20 21:00 06/13/20 20:38 I have reviewed the current psychotropics carefully including drug interactions. Risk benefit ratio favors no change other than as noted in my dictated progress note. Diagnosis: Problems: (1) Schizoaffective disorder, bipolar type (2) Mental status change (3) Anxiety disorder, unspecified (4) Impulse disorder, unspecified (5) Bipolar disorder, curr episode mixed, severe, with psychotic features CRISELDA GARCIA MD Jun 13, 2020 21:13
--- NOTE | 2020-06-13 21:14 | PDOC ---
Exam Note: Cristiano Note: Please also refer to the separate dictated note~for this date of service dictated separately.~Patient seen individually. Discussed the patient with Nursing staff reviewed the chart.~Reviewed interim history and current functioning. Reviewed vital signs,~Labs/ Radiology~and current medications noted below. Continue current treatment with the changes noted in the dictated addendum note Assessment: Vital Signs/I&O: Vital Signs Date Time Temp Pulse Resp B/P (MAP) Pulse Ox O2 Delivery O2 Flow Rate FiO2 06/13/20 15:23 96.7 120 17 139/93 (108) 92 06/13/20 06:37 Room Air I & O 06/12/20 06/12/20 06/13/20 15:00 23:00 07:00 Intake Total 780 ml 460 ml Balance 780 ml 460 ml Labs: Laboratory Tests Test 06/13/20 15:20 SARS-CoV-2 Antigen (Rapid) Negative (NEGATIVE) Current Medications: Meds: Laboratory Tests Test 06/13/20 15:20 SARS-CoV-2 Antigen (Rapid) Negative Current Medications Medications (Trade) Dose Ordered Sig/Bang Route PRN Reason Start Time Stop Time Status Last Admin Dose Admin Acetaminophen (Tylenol) 650 mg PRN Q6HRS PRN PO MILD PAIN / TEMP > 100.3'F 06/01/20 12:15 06/01/20 12:53 DC Multi-Ingredient Ointment (Analgesic [place]) 1 lou PRN QID PRN TP MUSCLE PAIN 06/01/20 12:15 Al Hydroxide/Mg Hydroxide (Mylanta Plus Xs) 15 ml PRN AFTMEALHC PRN PO DYSPEPSIA 06/01/20 12:15 06/13/20 10:45 Magnesium Hydroxide (Milk Of Magnesia) 2,400 mg PRN QHS PRN PO CONSTIPATION 06/01/20 12:15 06/01/20 13:00 DC Acetaminophen (Tylenol) 650 mg PRN Q4HRS PRN PO pain or fever 06/01/20 12:45 06/12/20 19:56 Bisacodyl (Dulcolax Supp) 10 mg PRN DAILY PRN RC CONSTIPATION, 2ND CHOICE 06/01/20 12:45 Divalproex Sodium (Depakote) 250 mg TID PO 06/01/20 14:00 06/01/20 19:18 DC 06/01/20 14:55 Fluoxetine HCl (PROzac) 20 mg DAILY PO 06/02/20 09:00 06/13/20 08:40 Albuterol/ Ipratropium (Duoneb) 3 ml PRN Q4HRS PRN NEB SHORTNESS OF BREATH 06/01/20 12:45 Lorazepam (Ativan) 2 mg TID PO 06/01/20 14:00 06/02/20 15:48 DC 06/02/20 15:04 Sodium Biphosphate/ Sodium Phosphate (Fleet Adult) 133 ml PRN DAILY PRN RC CONSTIPATION, 3RD CHOICE 06/01/20 12:45 Olanzapine (ZyPREXA) 5 mg DAILY PO 06/02/20 09:00 06/03/20 17:52 DC 06/03/20 08:05 Guaifenesin (Robitussin Dm) 10 ml PRN Q4HRS PRN PO COUGH 06/01/20 13:00 Non-Formulary Medication (Magnesium Hydroxide (Milk Of Magnesia)) 2,400 mg PRN DAILY PRN PO CONSTIPATION 06/01/20 12:45 06/01/20 13:00 DC Pantoprazole Sodium (Protonix) 40 mg DAILYAC PO 06/02/20 07:30 06/13/20 08:40 Risperidone (RisperDAL) 1 mg BID PO 06/01/20 21:00 06/04/20 12:25 DC 06/03/20 20:08 Quetiapine Fumarate (SEROquel) 50 mg DAILY PO 06/02/20 09:00 06/07/20 18:44 DC 06/07/20 08:10 Quetiapine Fumarate (SEROquel) 300 mg HS PO 06/01/20 21:00 06/13/20 20:39 Magnesium Hydroxide (Milk Of Magnesia) 2,400 mg PRN BID PRN PO CONSTIPATION, 1ST CHOICE 06/01/20 13:15 Divalproex Sodium (Depakote Er) 1,000 mg QHS PO 06/01/20 21:00 06/13/20 20:39 Lorazepam (Ativan) 2 mg 0800 PO 06/03/20 08:00 06/07/20 21:01 DC 06/07/20 08:09 Lorazepam (Ativan) 1 mg 0800 PO 06/08/20 08:00 06/10/20 21:00 DC 06/10/20 07:38 Lorazepam (Ativan) 3 mg 2100 PO 06/02/20 21:00 06/04/20 23:59 DC 06/04/20 20:04 Lorazepam (Ativan) 2 mg 2100 PO 06/05/20 21:00 06/10/20 23:59 DC 06/10/20 19:34 Olanzapine (ZyPREXA ZYDIS) 2.5 mg PRN Q2HRS PRN PO PSYCHOSIS 06/02/20 16:57 06/10/20 03:03 Lorazepam (Ativan) 1 mg 1X ONCE PO 06/03/20 18:00 06/03/20 18:12 DC Paliperidone (Invega) 6 mg DAILY PO 06/04/20 09:00 06/10/20 13:53 DC 06/10/20 07:38 Amoxicillin (Amoxil) 500 mg [id number] PO 06/10/20 21:00 06/16/20 21:00 06/13/20 20:39 Lactobacillus Rhamnosus (Culturelle) 1 cap BID PO 06/12/20 21:00 06/13/20 20:38 I have reviewed the current psychotropics carefully including drug interactions. Risk benefit ratio favors no change other than as noted in my dictated progress note. Diagnosis: Problems: (1) Schizoaffective disorder, bipolar type (2) Mental status change (3) Anxiety disorder, unspecified (4) Impulse disorder, unspecified (5) Bipolar disorder, curr episode mixed, severe, with psychotic features CRISELDA GARCIA MD Jun 13, 2020 21:14
--- NOTE | 2020-06-13 22:24 | NUR ---
Pt laying in bed on assessment. Pt compliant with shower this HS. Pt calm and compliant with medications and assessment. Pt denies complaints.
[2020-06-14 06:29] VITALS: BP 102/68
--- NOTE | 2020-06-14 08:14 | PDOC ---
Exam Note: Cristiano Note: This note is a late entry for 06/13/2020 covers elements not covered in my initial note. Subjective: The patient was reviewed on telehealth rounds in the evening of 06/13/2020 with Tam BAXTER. Discussed with nursing staff, reviewed the chart. The patient slept 8 hours previous night. Overall the patient has done better. She is still somewhat withdrawn. Review of Systems: Ambulation impaired. No CV, , pulmonary, eye, ENT system symptoms on review. Mental Status Exam: The patient is reasonably oriented. Speech is coherent. Abstraction is fair. Computation is impaired. Language function is intact. Mood and affect appears more stable. Laboratory Data: Reviewed. Impression: Schizoaffective disorder bipolar type, mixed with psychotic features. Anxiety disorder unspecified. Impulse control disorder unspecified. Plan: No change from initial note. Assessment: Vital Signs/I&O: Vital Signs Date Time Temp Pulse Resp B/P (MAP) Pulse Ox O2 Delivery O2 Flow Rate FiO2 06/14/20 06:29 98.3 91 19 102/68 (79) 93 Room Air I & O 06/13/20 06/13/20 06/14/20 15:00 23:00 07:00 Intake Total 480 ml 480 ml 100 ml Balance 480 ml 480 ml 100 ml Labs: Laboratory Tests Test 06/13/20 15:20 SARS-CoV-2 Antigen (Rapid) Negative (NEGATIVE) Current Medications: Meds: Laboratory Tests Test 06/13/20 15:20 SARS-CoV-2 Antigen (Rapid) Negative Current Medications Medications (Trade) Dose Ordered Sig/Bang Route PRN Reason Start Time Stop Time Status Last Admin Dose Admin Acetaminophen (Tylenol) 650 mg PRN Q6HRS PRN PO MILD PAIN / TEMP > 100.3'F 06/01/20 12:15 06/01/20 12:53 DC Multi-Ingredient Ointment (Analgesic [place]) 1 lou PRN QID PRN TP MUSCLE PAIN 06/01/20 12:15 Al Hydroxide/Mg Hydroxide (Mylanta Plus Xs) 15 ml PRN AFTMEALHC PRN PO DYSPEPSIA 06/01/20 12:15 06/13/20 10:45 Magnesium Hydroxide (Milk Of Magnesia) 2,400 mg PRN QHS PRN PO CONSTIPATION 06/01/20 12:15 06/01/20 13:00 DC Acetaminophen (Tylenol) 650 mg PRN Q4HRS PRN PO pain or fever 06/01/20 12:45 06/12/20 19:56 Bisacodyl (Dulcolax Supp) 10 mg PRN DAILY PRN RC CONSTIPATION, 2ND CHOICE 06/01/20 12:45 Divalproex Sodium (Depakote) 250 mg TID PO 06/01/20 14:00 06/01/20 19:18 DC 06/01/20 14:55 Fluoxetine HCl (PROzac) 20 mg DAILY PO 06/02/20 09:00 06/13/20 08:40 Albuterol/ Ipratropium (Duoneb) 3 ml PRN Q4HRS PRN NEB SHORTNESS OF BREATH 06/01/20 12:45 Lorazepam (Ativan) 2 mg TID PO 06/01/20 14:00 06/02/20 15:48 DC 06/02/20 15:04 Sodium Biphosphate/ Sodium Phosphate (Fleet Adult) 133 ml PRN DAILY PRN RC CONSTIPATION, 3RD CHOICE 06/01/20 12:45 Olanzapine (ZyPREXA) 5 mg DAILY PO 06/02/20 09:00 06/03/20 17:52 DC 06/03/20 08:05 Guaifenesin (Robitussin Dm) 10 ml PRN Q4HRS PRN PO COUGH 06/01/20 13:00 Non-Formulary Medication (Magnesium Hydroxide (Milk Of Magnesia)) 2,400 mg PRN DAILY PRN PO CONSTIPATION 06/01/20 12:45 06/01/20 13:00 DC Pantoprazole Sodium (Protonix) 40 mg DAILYAC PO 06/02/20 07:30 06/13/20 08:40 Risperidone (RisperDAL) 1 mg BID PO 06/01/20 21:00 06/04/20 12:25 DC 06/03/20 20:08 Quetiapine Fumarate (SEROquel) 50 mg DAILY PO 06/02/20 09:00 06/07/20 18:44 DC 06/07/20 08:10 Quetiapine Fumarate (SEROquel) 300 mg HS PO 06/01/20 21:00 06/13/20 20:39 Magnesium Hydroxide (Milk Of Magnesia) 2,400 mg PRN BID PRN PO CONSTIPATION, 1ST CHOICE 06/01/20 13:15 Divalproex Sodium (Depakote Er) 1,000 mg QHS PO 06/01/20 21:00 06/13/20 20:39 Lorazepam (Ativan) 2 mg 0800 PO 06/03/20 08:00 06/07/20 21:01 DC 06/07/20 08:09 Lorazepam (Ativan) 1 mg 0800 PO 06/08/20 08:00 06/10/20 21:00 DC 06/10/20 07:38 Lorazepam (Ativan) 3 mg 2100 PO 06/02/20 21:00 06/04/20 23:59 DC 06/04/20 20:04 Lorazepam (Ativan) 2 mg 2100 PO 06/05/20 21:00 06/10/20 23:59 DC 06/10/20 19:34 Olanzapine (ZyPREXA ZYDIS) 2.5 mg PRN Q2HRS PRN PO PSYCHOSIS 06/02/20 16:57 06/10/20 03:03 Lorazepam (Ativan) 1 mg 1X ONCE PO 06/03/20 18:00 06/03/20 18:12 DC Paliperidone (Invega) 6 mg DAILY PO 06/04/20 09:00 06/10/20 13:53 DC 06/10/20 07:38 Amoxicillin (Amoxil) 500 mg [id number] PO 06/10/20 21:00 06/16/20 21:00 06/13/20 20:39 Lactobacillus Rhamnosus (Culturelle) 1 cap BID PO 06/12/20 21:00 06/13/20 20:38 I have reviewed the current psychotropics carefully including drug interactions. Risk benefit ratio favors no change other than as noted in my dictated progress note. Diagnosis: Problems: (1) Schizoaffective disorder, bipolar type (2) Anxiety disorder, unspecified (3) Impulse disorder, unspecified (4) Bipolar disorder, curr episode mixed, severe, with psychotic features CRISELDA GARCIA MD Jun 14, 2020 08:14
[2020-06-14] MEDS: LACTOBACILLUS RHAMNOSUS GG 1 CAPSULE. PO SCH (08:48)
[2020-06-14] MEDS: FLUoxetine HCL 20 MG CAPSULE PO SCH (08:48)
[2020-06-14] MEDS: AMOXICILLIN 250 MG CAPSULE PO SCH (08:48)
[2020-06-14] MEDS: PANTOPRAZOLE 40 MG TABLET. PO SCH (08:48)
--- NOTE | 2020-06-14 12:00 | NUR ---
Transition Record was faxed to follow-up provider with the following elements: Reason for admission, procedures, tests, principal diagnosis, pending studies, patient instructions, 15/12 contact information for unit, phone number to obtain pending test results, plan for follow-up care, physician follow-up, advanced directive information, and medication list with dose, duration and instructions. This information was included in the following documents: History and physical, lab results, study results, progress notes, social work planning form, DC instruction form, patient visit summary, and medication reconciliation form. Date & time record faxed: 06/14/20 @ 0253 & [id number] Record faxed to: [facility] @ [phone] & [facility] @ [phone] Record discussed with/ report given to: Tracie
--- NOTE | 2020-06-14 20:55 | PDOC ---
Exam Note: Cristiano Note: Please also refer to the separate dictated note~for this date of service dictated separately.~Patient seen individually. Discussed the patient with Nursing staff reviewed the chart.~Reviewed interim history and current functioning. Reviewed vital signs,~Labs/ Radiology~and current medications noted below. Continue current treatment with the changes noted in the dictated addendum note Assessment: Vital Signs/I&O: Vital Signs Date Time Temp Pulse Resp B/P (MAP) Pulse Ox O2 Delivery O2 Flow Rate FiO2 06/14/20 06:29 98.3 91 19 102/68 (79) 93 Room Air I & O 06/13/20 06/13/20 06/14/20 15:00 23:00 07:00 Intake Total 480 ml 480 ml 100 ml Balance 480 ml 480 ml 100 ml Current Medications: Meds: Current Medications Medications (Trade) Dose Ordered Sig/Bang Route PRN Reason Start Time Stop Time Status Last Admin Dose Admin Acetaminophen (Tylenol) 650 mg PRN Q6HRS PRN PO MILD PAIN / TEMP > 100.3'F 06/01/20 12:15 06/01/20 12:53 DC Multi-Ingredient Ointment (Analgesic [place]) 1 lou PRN QID PRN TP MUSCLE PAIN 06/01/20 12:15 06/14/20 12:19 DC Al Hydroxide/Mg Hydroxide (Mylanta Plus Xs) 15 ml PRN AFTMEALHC PRN PO DYSPEPSIA 06/01/20 12:15 06/14/20 12:19 DC 06/13/20 10:45 Magnesium Hydroxide (Milk Of Magnesia) 2,400 mg PRN QHS PRN PO CONSTIPATION 06/01/20 12:15 06/01/20 13:00 DC Acetaminophen (Tylenol) 650 mg PRN Q4HRS PRN PO pain or fever 06/01/20 12:45 06/14/20 12:19 DC 06/12/20 19:56 Bisacodyl (Dulcolax Supp) 10 mg PRN DAILY PRN RC CONSTIPATION, 2ND CHOICE 06/01/20 12:45 06/14/20 12:19 DC Divalproex Sodium (Depakote) 250 mg TID PO 06/01/20 14:00 06/01/20 19:18 DC 06/01/20 14:55 Fluoxetine HCl (PROzac) 20 mg DAILY PO 06/02/20 09:00 06/14/20 12:19 DC 06/14/20 08:48 Albuterol/ Ipratropium (Duoneb) 3 ml PRN Q4HRS PRN NEB SHORTNESS OF BREATH 06/01/20 12:45 06/14/20 12:19 DC Lorazepam (Ativan) 2 mg TID PO 06/01/20 14:00 06/02/20 15:48 DC 06/02/20 15:04 Sodium Biphosphate/ Sodium Phosphate (Fleet Adult) 133 ml PRN DAILY PRN RC CONSTIPATION, 3RD CHOICE 06/01/20 12:45 06/14/20 12:19 DC Olanzapine (ZyPREXA) 5 mg DAILY PO 06/02/20 09:00 06/03/20 17:52 DC 06/03/20 08:05 Guaifenesin (Robitussin Dm) 10 ml PRN Q4HRS PRN PO COUGH 06/01/20 13:00 06/14/20 12:19 DC Non-Formulary Medication (Magnesium Hydroxide (Milk Of Magnesia)) 2,400 mg PRN DAILY PRN PO CONSTIPATION 06/01/20 12:45 06/01/20 13:00 DC Pantoprazole Sodium (Protonix) 40 mg DAILYAC PO 06/02/20 07:30 06/14/20 12:19 DC 06/14/20 08:48 Risperidone (RisperDAL) 1 mg BID PO 06/01/20 21:00 06/04/20 12:25 DC 06/03/20 20:08 Quetiapine Fumarate (SEROquel) 50 mg DAILY PO 06/02/20 09:00 06/07/20 18:44 DC 06/07/20 08:10 Quetiapine Fumarate (SEROquel) 300 mg HS PO 06/01/20 21:00 06/14/20 12:19 DC 06/13/20 20:39 Magnesium Hydroxide (Milk Of Magnesia) 2,400 mg PRN BID PRN PO CONSTIPATION, 1ST CHOICE 06/01/20 13:15 06/14/20 12:19 DC Divalproex Sodium (Depakote Er) 1,000 mg QHS PO 06/01/20 21:00 06/14/20 12:19 DC 06/13/20 20:39 Lorazepam (Ativan) 2 mg 0800 PO 06/03/20 08:00 06/07/20 21:01 DC 06/07/20 08:09 Lorazepam (Ativan) 1 mg 0800 PO 06/08/20 08:00 06/10/20 21:00 DC 06/10/20 07:38 Lorazepam (Ativan) 3 mg 2100 PO 06/02/20 21:00 06/04/20 23:59 DC 06/04/20 20:04 Lorazepam (Ativan) 2 mg 2100 PO 06/05/20 21:00 06/10/20 23:59 DC 06/10/20 19:34 Olanzapine (ZyPREXA ZYDIS) 2.5 mg PRN Q2HRS PRN PO PSYCHOSIS 06/02/20 16:57 06/14/20 12:19 DC 06/10/20 03:03 Lorazepam (Ativan) 1 mg 1X ONCE PO 06/03/20 18:00 06/03/20 18:12 DC Paliperidone (Invega) 6 mg DAILY PO 06/04/20 09:00 06/10/20 13:53 DC 06/10/20 07:38 Amoxicillin (Amoxil) 500 mg [id number] PO 06/10/20 21:00 06/14/20 12:19 DC 06/14/20 08:48 Lactobacillus Rhamnosus (Culturelle) 1 cap BID PO 06/12/20 21:00 06/14/20 12:19 DC 06/14/20 08:48 I have reviewed the current psychotropics carefully including drug interactions. Risk benefit ratio favors no change other than as noted in my dictated progress note. Diagnosis: Problems: (1) Schizoaffective disorder, bipolar type (2) Anxiety disorder, unspecified (3) Impulse disorder, unspecified (4) Bipolar disorder, curr episode mixed, severe, with psychotic features CRISELDA GARCIA MD Jun 14, 2020 20:55
--- NOTE | 2020-06-15 08:31 | PDOC ---
Exam Note: Cristiano Note: This note is a late entry for 06/14/2020 covers elements not covered in my initial note. Subjective: The patient was discussed with Milena BAXTER, reviewed the chart. The patient slept 7-1/4 hours previous night. Overall the patient has been pleasant, cooperative. Review of Systems: Ambulation impaired. No CV, , pulmonary, eye, ENT system symptoms on review. Mental Status Exam: The patient is reasonably oriented. Speech is coherent. Abstraction is fair. Computation is impaired. Language function is intact. Mood lability and agitation much improved. Laboratory Data: Reviewed. Impression: Schizoaffective disorder bipolar type, mixed with psychotic features. Anxiety disorder unspecified. Impulse control disorder unspecified. Plan: No change from initial note. Assessment: Vital Signs/I&O: Vital Signs Date Time Temp Pulse Resp B/P (MAP) Pulse Ox O2 Delivery O2 Flow Rate FiO2 06/14/20 06:29 98.3 91 19 102/68 (79) 93 Room Air I & O 06/14/20 06/14/20 06/15/20 15:00 23:00 07:00 Intake Total 360 ml Balance 360 ml Current Medications: Meds: Current Medications Medications (Trade) Dose Ordered Sig/Bang Route PRN Reason Start Time Stop Time Status Last Admin Dose Admin Acetaminophen (Tylenol) 650 mg PRN Q6HRS PRN PO MILD PAIN / TEMP > 100.3'F 06/01/20 12:15 06/01/20 12:53 DC Multi-Ingredient Ointment (Analgesic [place]) 1 lou PRN QID PRN TP MUSCLE PAIN 06/01/20 12:15 06/14/20 12:19 DC Al Hydroxide/Mg Hydroxide (Mylanta Plus Xs) 15 ml PRN AFTMEALHC PRN PO DYSPEPSIA 06/01/20 12:15 06/14/20 12:19 DC 06/13/20 10:45 Magnesium Hydroxide (Milk Of Magnesia) 2,400 mg PRN QHS PRN PO CONSTIPATION 06/01/20 12:15 06/01/20 13:00 DC Acetaminophen (Tylenol) 650 mg PRN Q4HRS PRN PO pain or fever 06/01/20 12:45 06/14/20 12:19 DC 06/12/20 19:56 Bisacodyl (Dulcolax Supp) 10 mg PRN DAILY PRN RC CONSTIPATION, 2ND CHOICE 06/01/20 12:45 06/14/20 12:19 DC Divalproex Sodium (Depakote) 250 mg TID PO 06/01/20 14:00 06/01/20 19:18 DC 06/01/20 14:55 Fluoxetine HCl (PROzac) 20 mg DAILY PO 06/02/20 09:00 06/14/20 12:19 DC 06/14/20 08:48 Albuterol/ Ipratropium (Duoneb) 3 ml PRN Q4HRS PRN NEB SHORTNESS OF BREATH 06/01/20 12:45 06/14/20 12:19 DC Lorazepam (Ativan) 2 mg TID PO 06/01/20 14:00 06/02/20 15:48 DC 06/02/20 15:04 Sodium Biphosphate/ Sodium Phosphate (Fleet Adult) 133 ml PRN DAILY PRN RC CONSTIPATION, 3RD CHOICE 06/01/20 12:45 06/14/20 12:19 DC Olanzapine (ZyPREXA) 5 mg DAILY PO 06/02/20 09:00 06/03/20 17:52 DC 06/03/20 08:05 Guaifenesin (Robitussin Dm) 10 ml PRN Q4HRS PRN PO COUGH 06/01/20 13:00 06/14/20 12:19 DC Non-Formulary Medication (Magnesium Hydroxide (Milk Of Magnesia)) 2,400 mg PRN DAILY PRN PO CONSTIPATION 06/01/20 12:45 06/01/20 13:00 DC Pantoprazole Sodium (Protonix) 40 mg DAILYAC PO 06/02/20 07:30 06/14/20 12:19 DC 06/14/20 08:48 Risperidone (RisperDAL) 1 mg BID PO 06/01/20 21:00 06/04/20 12:25 DC 06/03/20 20:08 Quetiapine Fumarate (SEROquel) 50 mg DAILY PO 06/02/20 09:00 06/07/20 18:44 DC 06/07/20 08:10 Quetiapine Fumarate (SEROquel) 300 mg HS PO 06/01/20 21:00 06/14/20 12:19 DC 06/13/20 20:39 Magnesium Hydroxide (Milk Of Magnesia) 2,400 mg PRN BID PRN PO CONSTIPATION, 1ST CHOICE 06/01/20 13:15 06/14/20 12:19 DC Divalproex Sodium (Depakote Er) 1,000 mg QHS PO 06/01/20 21:00 06/14/20 12:19 DC 06/13/20 20:39 Lorazepam (Ativan) 2 mg 0800 PO 06/03/20 08:00 06/07/20 21:01 DC 06/07/20 08:09 Lorazepam (Ativan) 1 mg 0800 PO 06/08/20 08:00 06/10/20 21:00 DC 06/10/20 07:38 Lorazepam (Ativan) 3 mg 2100 PO 06/02/20 21:00 06/04/20 23:59 DC 06/04/20 20:04 Lorazepam (Ativan) 2 mg 2100 PO 06/05/20 21:00 06/10/20 23:59 DC 06/10/20 19:34 Olanzapine (ZyPREXA ZYDIS) 2.5 mg PRN Q2HRS PRN PO PSYCHOSIS 06/02/20 16:57 06/14/20 12:19 DC 06/10/20 03:03 Lorazepam (Ativan) 1 mg 1X ONCE PO 06/03/20 18:00 06/03/20 18:12 DC Paliperidone (Invega) 6 mg DAILY PO 06/04/20 09:00 06/10/20 13:53 DC 06/10/20 07:38 Amoxicillin (Amoxil) 500 mg [id number] PO 06/10/20 21:00 06/14/20 12:19 DC 06/14/20 08:48 Lactobacillus Rhamnosus (Culturelle) 1 cap BID PO 06/12/20 21:00 06/14/20 12:19 DC 06/14/20 08:48 I have reviewed the current psychotropics carefully including drug interactions. Risk benefit ratio favors no change other than as noted in my dictated progress note. Diagnosis: Problems: (1) Schizoaffective disorder, bipolar type (2) Anxiety disorder, unspecified (3) Impulse disorder, unspecified (4) Bipolar disorder, curr episode mixed, severe, with psychotic features CRISELDA GARCIA MD Jun 15, 2020 08:31
--- NOTE | 2020-06-15 11:22 | DS ---
DATE OF DISCHARGE: 06/14/2020 DISCHARGE SUMMARY AND PSYCHIATRIC PROGRESS NOTE This is a late entry for date of service 06/14/2020, covers elements not covered in my initial note. REASON FOR ADMISSION: Please refer to the admission history for details. Briefly, the patient is a 54-year-old female referred to us from [facility] in [place], [place], referred by Dr. Lane, her primary care physician on account of an acute exacerbation of schizoaffective disorder, bipolar type versus bipolar disorder. She was threatening staff, trying to leave the facility delusional. She believed her nieces and nephews were being hurt and abused and neglected and had left the house. She believed they had been eaten by dogs. She was repeatedly calling 911 to report the danger, was having anxiety, panic attacks, yelling out, totally unmanageable at the facility, having failed outpatient psychiatric interventions. She was referred for inpatient psychiatric stabilization. SIGNIFICANT FINDINGS AND CLINICAL COURSE: Following admission, the patient was seen daily individually by myself from a psychiatric standpoint, medical followup per Dr. Nation/Dr. Martinez. The patient was extremely manic, labile in her mood, angry, irritable, paranoid. Adjustments were made in her psychotropics and she seemed to respond to a combination of Depakote ER 1000 mg at bedtime with therapeutic blood level, Prozac 20 mg a day, Seroquel 300 mg at bedtime, Zyprexa 2.5 mg q. 2 hours p.r.n. psychosis, agitation. She also had a UTI and was treated on a 7-day course of Amoxil successfully for this, which additionally helped her mood lability, paranoia. REVIEW OF SYSTEMS: Prior to discharge on 06/14/2020, no CV, , pulmonary, eye, ENT system symptoms on review. MENTAL STATUS EXAM: The patient is reasonably oriented. Speech is coherent, less pressured. Abstraction fair, computation impaired, language function intact, attention span short. Mood and affect is improved. Paranoia seemed to have resolved. No suicidal or homicidal ideation. CONDITION AT DISCHARGE: Improved. FINAL DIAGNOSES: Bipolar 1 disorder, mixed with psychotic features versus schizoaffective disorder, bipolar type, mixed with psychotic features, in partial remission. Anxiety disorder, unspecified; impulse control disorder, unspecified. Rest unchanged from admission. DISCHARGE MEDICATIONS: Please refer to the [facility]. DISCHARGE INSTRUCTIONS: [facility]. Time for discharge day management greater than 30 minutes. CRISELDA GARCIA MD DR: RUSSELL/sekou JOB#: [id number] / [id number]
== END 2020-06-14 12:00 | DRG 885 ==
LOC: GEROPSY 11:07
PROVIDERS: ADMIT Psychiatry & Neurology Psychiatry; ATTEND Psychiatry & Neurology Psychiatry
DX: F25.0 Schizoaffective disorder, bipolar type (principal); F03.91 Unspecified dementia, unspecified severity, with behavioral disturbance; K21.9 Gastro-esophageal reflux disease without esophagitis; G40.909 Epilepsy, unspecified, not intractable, without status epilepticus; M19.90 Unspecified osteoarthritis, unspecified site; F63.9 Impulse disorder, unspecified; J45.909 Unspecified asthma, uncomplicated; F41.0 Panic disorder [episodic paroxysmal anxiety]; Z88.5 Allergy status to narcotic agent; Z87.891 Personal history of nicotine dependence; Z79.899 Other long term (current) drug therapy; Z20.822 Contact with and (suspected) exposure to COVID-19
CPT/HCPCS: 36415; 70450; 73030; 73502; 73564; 80053; 80061; 80164; 81001; 82140; 82306; 82607; 83036; 83540; 83550; 83735; 84436; 84443; 84480; 85025; 85379; 86592; 87077; 87086; 87186; 87426; U0003; 97110; 97530; 97535